=== PATIENT | male | born 1975 | race Caucasian/White ===

== ENCOUNTER 2020-08-13 09:23 | Outpatient (REF) | payer BC, SELFPAY ==
[2020-08-13 10:14] LABS: MANUAL DIFF FLAG NO
[2020-08-13 10:25] LABS: Basophils Absolute Auto 0.1 X10*3/uL (0.0-0.2); Basophils Percent Auto 0.7 % (0-2); Eosinophils Absolute Auto 0.4 X10*3/uL (0.0-0.4); Eosinophils Percent Auto 4.9 % (0-4); Hematocrit 48.7 % (42-52); Hemoglobin 17.1 g/dl (14.0-18.0); Imm Gran Abs Auto 0.02 X10*3/uL (0.00-0.03); Imm Gran Pct Auto 0.3 % (0.0-0.4); Lymphocytes Percent Auto 27.9 % (20-40); Mean Corpuscular HGB Conc 35.1 g/dl (31.0-36.0); Mean Corpuscular Hemoglobin 30.7 pg (27.0-33.0); Mean Corpuscular Volume 87.4 fL (80-98); Mean Platelet Volume 9.1 fL (9.4-12.4); Monocytes Absolute Auto 0.7 X10*3/uL (0.1-1.2); Monocytes Percent Auto 9.1 % (2-11); Neutrophils Absolute Auto 4.1 X10*3/uL (2.0-8.3); Neutrophils Percent Auto 57.1 % (45-73); Platelet Count 250 X10*3/uL (160-400); Red Blood Count 5.57 X10*6/uL (4.60-5.80); Red Cell Distribution Width 12.3 % (11.0-16.0); White Blood Count 7.2 X10*3/uL (4.8-10.8)
[2020-08-13 10:41] LABS: Alanine Aminotransferase 94 U/L (0-40); Albumin Level 4.3 g/dL (3.5-5.0); Alkaline Phosphatase 73 U/L (39-117); Anion Gap 13 (12-20); Aspartate Amino Transferase 56 U/L (5-37); Bilirubin Total 1.4 mg/dL (0.0-1.0); Blood Urea Nitrogen 23 mg/dL (9-16); Calcium 9.2 mg/dL (8.4-10.2); Carbon Dioxide 27 mmol/L (22-29); Chloride 102 mmol/L (96-108); Cholesterol 159 mg/dL; Estimated Glomerular Filt Rate > 60; Glucose Random 95 mg/dL (60-115); HDL Cholesterol 31 mg/dL; LDL Cholesterol Calculated 68 mg/dl; Sodium 138 mmol/L (135-145); Total Protein 7.3 g/dL (6.5-8.0); Triglycerides 300 mg/dL
[2020-08-13 11:03] LABS: Prostate Specific Antigen 1.17 ng/mL (<0.05-4.0)
[2020-08-13 11:14] LABS: Erythrocyte Sedimentation Rate 2 MM/HR (0-15)
== END 2020-08-13 09:24 | disposition home or self-care (01) ==
LOC: HO.LAB 09:23
PROVIDERS: PCP Internal Medicine Medical Oncology; Visit Provider Internal Medicine Medical Oncology
DX: G89.29 Other chronic pain (principal); M54.42 Lumbago with sciatica, left side; R63.4 Abnormal weight loss; N40.0 Benign prostatic hyperplasia without lower urinary tract symptoms; R22.9 Localized swelling, mass and lump, unspecified
CPT/HCPCS: 36415; 80053; 80061; 84153; 85025; 85652

== ENCOUNTER 2020-08-30 09:20 | Outpatient (REF) | payer BC, SELFPAY ==
--- NOTE | 2020-08-30 09:27 | FL_ITS ---
EXAMINATION: XR GI SERIES CLINICAL INFORMATION: Weight loss, hematemesis and nausea COMPARISON: None TECHNIQUE: Routine upper GI air-contrast study was performed. FINDINGS: Following oral administration of thick barium and effervescent granules, there is normal propagation bolus from the oral cavity through the pharynx, esophagus into stomach without obstruction, narrowing, or stricture. On placing patient supine and prone lying, there is flocculation of barium, still some increased acidity. No gastric or duodenal ulceration seen. Prominent duodenal mucosal thickening is seen. There is mild gastroesophageal reflux without hiatal hernia. Otherwise the course, caliber and rest of the stomach and duodenum are normal. FLUOROSCOPY TIME: 3.2 minutes DOSE AREA PRODUCT: 51.776 uGy-m2 (microgray-meter squared) FL/FL upper GI series IMPRESSION: 1. Increased gastric barium flocculation and thickening of duodenal mucosa suggestive of gastric acidity. No gastric or duodenal ulceration seen. 2. Mild gastroesophageal reflux without hiatal hernia.
== END 2020-08-30 09:21 | disposition home or self-care (01) ==
LOC: HO.XRAY 09:20
PROVIDERS: Visit Provider Internal Medicine Medical Oncology
DX: G89.29 Other chronic pain (principal); M54.42 Lumbago with sciatica, left side; R63.4 Abnormal weight loss; K92.0 Hematemesis; R11.0 Nausea
CPT/HCPCS: 74240

== ENCOUNTER 2020-08-31 08:08 | Outpatient (REF) | payer BC, SELFPAY ==
--- NOTE | 2020-08-31 08:23 | XR_ITS ---
EXAMINATION: XR CHEST CLINICAL INFORMATION: Chronic pain, weight loss, lumbago with left-sided sciatica COMPARISON: None TECHNIQUE: 2 views of the chest were obtained. FINDINGS: No significant abnormality is noted involving the heart, lungs, mediastinum, bony thorax or soft tissues. XR/XR chest 2V IMPRESSION: Unremarkable chest exam
[2020-08-31 08:29] LABS: Basophils Percent Auto 0.7 % (0-2); Eosinophils Absolute Auto 0.3 X10*3/uL (0.0-0.4); Eosinophils Percent Auto 5.7 % (0-4); Hematocrit 47.9 % (42-52); Hemoglobin 16.7 g/dl (14.0-18.0); Imm Gran Abs Auto 0.01 X10*3/uL (0.00-0.03); Imm Gran Pct Auto 0.2 % (0.0-0.4); Lymphocytes Absolute Auto 1.8 X10*3/uL (1.2-4.9); Lymphocytes Percent Auto 33.8 % (20-40); MANUAL DIFF FLAG NO; Mean Corpuscular HGB Conc 34.9 g/dl (31.0-36.0); Mean Corpuscular Hemoglobin 30.9 pg (27.0-33.0); Mean Corpuscular Volume 88.7 fL (80-98); Mean Platelet Volume 8.8 fL (9.4-12.4); Monocytes Absolute Auto 0.4 X10*3/uL (0.1-1.2); Monocytes Percent Auto 7.2 % (2-11); Neutrophils Absolute Auto 2.9 X10*3/uL (2.0-8.3); Neutrophils Percent Auto 52.4 % (45-73); Platelet Count 253 X10*3/uL (160-400); White Blood Count 5.4 X10*3/uL (4.8-10.8)
[2020-08-31 09:10] LABS: Alanine Aminotransferase 76 U/L (0-40); Alkaline Phosphatase 87 U/L (39-117); Anion Gap 12 (12-20); Aspartate Amino Transferase 45 U/L (5-37); Bilirubin Total 0.4 mg/dL (0.0-1.0); Blood Urea Nitrogen 17 mg/dL (9-16); Calcium 9.1 mg/dL (8.4-10.2); Carbon Dioxide 29 mmol/L (22-29); Chloride 101 mmol/L (96-108); Estimated Glomerular Filt Rate > 60; Glucose Random 170 mg/dL (60-115); Potassium 4.5 mmol/l (3.3-5.1); Sodium 137 mmol/L (135-145); Total Protein 7.1 g/dL (6.5-8.0)
== END 2020-08-31 08:09 | disposition home or self-care (01) ==
LOC: HO.LAB 08:08
PROVIDERS: PCP Internal Medicine Medical Oncology; Visit Provider Internal Medicine Medical Oncology
DX: G89.29 Other chronic pain (principal); M54.42 Lumbago with sciatica, left side; R63.4 Abnormal weight loss; K92.0 Hematemesis
CPT/HCPCS: 36415; 71046; 80053; 85025

== ENCOUNTER 2020-09-08 08:14 | Outpatient (REF) | payer BC, SELFPAY ==
--- NOTE | 2020-09-08 08:19 | XR_ITS ---
EXAMINATION: XR LUMBOSACRAL SPINE WITH OBLIQUES CLINICAL INFORMATION: Chronic pain, lumbago with left-sided sciatica. COMPARISON: Lumbar spine 04/15/2007 TECHNIQUE: AP, both oblique, and lateral views of the lumbar spine. Lateral view of the lumbosacral junction. FINDINGS: There is normal lumbar lordosis. The vertebral heights and disc heights are normal. There is a grade 1 retrolisthesis L4 or L5. Rest the vertebral alignment is normal. On oblique views there is no pars defect or listhesis. No lytic or sclerotic process seen. There is mild ventral spondylosis at L2-L3 disc level. The paravertebral soft tissues are normal. XR/XR lumbar spine 4V min IMPRESSION: Grade 1 retrolisthesis of L4 over L5. There is mild ventral spondylosis at L2-L3 disc level. No acute fracture, dislocation or lytic process seen.
== END 2020-09-08 08:15 | disposition home or self-care (01) ==
LOC: HO.XRAY 08:14
PROVIDERS: PCP Internal Medicine Medical Oncology; Visit Provider Internal Medicine Medical Oncology
DX: G89.29 Other chronic pain (principal); M54.42 Lumbago with sciatica, left side; R63.4 Abnormal weight loss; K92.0 Hematemesis
CPT/HCPCS: 72110

== ENCOUNTER 2020-09-29 09:27 | Outpatient (REF) | payer BC, SELFPAY ==
[2020-09-29 10:53] LABS: Alanine Aminotransferase 85 U/L (0-40); Albumin Level 4.4 g/dL (3.5-5.0); Alkaline Phosphatase 82 U/L (39-117); Anion Gap 12 (12-20); Aspartate Amino Transferase 58 U/L (5-37); Bilirubin Total 0.7 mg/dL (0.0-1.0); Blood Urea Nitrogen 19 mg/dL (9-16); Calcium 9.8 mg/dL (8.4-10.2); Carbon Dioxide 30 mmol/L (22-29); Chloride 101 mmol/L (96-108); Estimated Glomerular Filt Rate > 60; Gamma Glutamyl Transpeptidase 177 U/L (11-51); Glucose Fasting 95 mg/dL (60-99); Potassium 4.4 mmol/l (3.3-5.1); Sodium 139 mmol/L (135-145); Total Protein 7.3 g/dL (6.5-8.0)
[2020-09-29 11:16] LABS: Estimated Average Glucose 105 mg/dL; Hemoglobin A1c % 5.3 %
== END 2020-09-29 09:28 | disposition home or self-care (01) ==
LOC: HO.LAB 09:27
PROVIDERS: Visit Provider Internal Medicine Medical Oncology
DX: N40.0 Benign prostatic hyperplasia without lower urinary tract symptoms (principal); E66.3 Overweight
CPT/HCPCS: 36415; 80053; 82977; 83036

== ENCOUNTER 2020-10-20 14:07 | Outpatient (REF) | payer BC, SELFPAY ==
--- NOTE | ~2020-10-20 | MR_ITS ---
EXAMINATION: MR LUMBAR SPINE WITHOUT CONTRAST CLINICAL INFORMATION: Left-sided lower back pain. Left leg pain. Sacroiliac joint pain. COMPARISON: Lumbar spine radiographs dated 09/08/2020. TECHNIQUE: MRI of the lumbar spine was obtained using routine sequences without contrast. FINDINGS: VERTEBRAL BODIES AND PARASPINAL STRUCTURES: Normal vertebral body alignment. The lumbar lordosis is maintained. No acute fracture or subluxation. No loss of vertebral body height. Mild loss of intervertebral disc height with disc desiccation at L4-L5. Probable small vertebral body hemangioma within L1. No additional abnormal marrow signal. The visualized paraspinal soft tissues are unremarkable. CONUS MEDULLARIS AND CAUDA EQUINA: Normal, terminating at the level of L1. SPINAL LEVELS: T12-L1: No significant disc bulge. Bilateral facet arthropathy. No central canal or neural foraminal stenosis. L1-L2: No significant disc bulge. Lateral facet arthropathy. No central canal or neural foraminal stenosis. L2-L3: Mild broad-based disc bulge with a shallow left extraforaminal disc protrusion which abuts the exiting left L2 nerve root. Bilateral facet arthropathy with mild bilateral neural foraminal stenosis. L3-L4: Broad-based disc bulge with a shallow left extraforaminal disc protrusion which abuts the exiting left L3 nerve root. Bilateral facet arthropathy with [id number] left and mild right neural foraminal stenosis. L4-L5: Broad-based disc bulge with a shallow right extraforaminal disc protrusion which abuts the exiting right L4 nerve root. Bilateral facet arthropathy and thickening of the ligamentum flavum with mild central canal as well as moderate bilateral neural foraminal stenosis. L5-S1: No significant disc bulge. Bilateral facet arthropathy and mild right-sided uncinate spurring with mild right neural foraminal stenosis. MR/MR lumbar spine wo con IMPRESSION: 1. L4-L5 broad-based disc bulge with a shallow right extraforaminal disc protrusion which abuts the exiting right L4 nerve root. Bilateral facet arthropathy and thickening of the ligamentum flavum with mild central canal as well as moderate bilateral neural foraminal stenosis. 2. L2-L3 broad-based disc bulge with a shallow left extraforaminal disc protrusion which abuts the exiting left L2 nerve root. Bilateral facet arthropathy with mild bilateral neural foraminal stenosis. 3. L3-L4 broad-based disc bulge and shallow left extraforaminal disc protrusion which abuts the exiting left L3 nerve root. Bilateral facet arthropathy with [id number] left and mild right neural foraminal stenosis. 4. L5-S1 bilateral facet arthropathy with mild right-sided uncinate spurring and mild right neural foraminal stenosis.
== END 2020-10-20 14:08 | disposition home or self-care (01) ==
LOC: HO.MRI 14:07
PROVIDERS: Visit Provider Internal Medicine Medical Oncology
DX: M54.42 Lumbago with sciatica, left side (principal); M53.3 Sacrococcygeal disorders, not elsewhere classified; G89.29 Other chronic pain
CPT/HCPCS: 72148

== ENCOUNTER 2021-08-08 15:34 | Outpatient (REF) | payer OTHER, SELFPAY ==
--- NOTE | ~2021-08-08 | XR_ITS ---
EXAMINATION: XR CHEST CLINICAL INFORMATION: Right anterior chest pain. Pain on inspiration. COMPARISON: None TECHNIQUE: 2 views of the chest were obtained. FINDINGS: No significant abnormality is noted involving the heart, lungs, mediastinum, bony thorax or soft tissues. There is no pneumothorax. There is no pleural effusion. XR/XR chest 2V IMPRESSION: Normal chest.
== END 2021-08-08 15:35 | disposition home or self-care (01) ==
LOC: HO.XRAY 15:34
PROVIDERS: Visit Provider Internal Medicine Medical Oncology
DX: R07.9 Chest pain, unspecified (principal)
CPT/HCPCS: 71046

== ENCOUNTER 2021-09-07 09:19 | Outpatient (REF) | payer OTHER, SELFPAY ==
[2021-09-07 12:50] LABS: Influenza A PCR NEGATIVE (Negative); Influenza B PCR NEGATIVE (Negative); Resp Syncy Virus RNA Qual PCR NEGATIVE (Negative); SARS COV2 PCR INHOUSE NEGATIVE (Negative)
== END 2021-09-07 09:20 | disposition home or self-care (01) ==
LOC: HO.LAB 09:19
PROVIDERS: Visit Provider Family Medicine
DX: Z20.822 Contact with and (suspected) exposure to COVID-19 (principal)
CPT/HCPCS: 0241U

== ENCOUNTER → 2021-10-03 13:56 | Outpatient (BNVA) | payer OTHER, SELFPAY | PROVIDERS: PCP Internal Medicine Medical Oncology; Visit Provider Internal Medicine ==

== ENCOUNTER 2021-11-09 06:02 | Outpatient (REF) | payer OTHER, SELFPAY ==
--- NOTE | ~2021-11-09 | FL_ITS ---
EXAMINATION: XR FLUOROSCOPY WITH IMAGES CLINICAL INFORMATION: M54.16 - Radiculopathy, lumbar region COMPARISON: Radiographs lumbar spine 09/08/2020 TECHNIQUE: Fluoroscopy performed by Dr. John Wang. Fluoroscopy time: 1.0 minutes DAP: 4.19 Gycm2 Images: 4 FINDINGS: There is transitional vertebrae at L5 with sacralization, partial on right. There are spinal needles overlying the outer left L3 and L4 neural foramen. There is contrast seen in the respective nerve sheaths. Some early transforaminal epidural extension is suggested. No visible vascular communication. FL/FL guidance in treatment room IMPRESSION: Fluoroscopy for pain management procedures.
== END 2021-11-09 06:03 | disposition home or self-care (01) ==
LOC: HO.RADIR 06:02
PROVIDERS: Visit Provider Internal Medicine
DX: M54.16 Radiculopathy, lumbar region (principal); M54.59 Other low back pain
CPT/HCPCS: 64483; 64484; J1100; Q9967

== ENCOUNTER 2022-04-18 09:07 | Outpatient (REF) | payer OTHER, SELFPAY ==
[2022-04-18 09:18] LABS: MANUAL DIFF FLAG NO
[2022-04-18 09:34] LABS: Basophils Absolute Auto 0.1 X10*3/uL (0.0-0.2); Eosinophils Absolute Auto 0.2 X10*3/uL (0.0-0.4); Eosinophils Percent Auto 4.1 % (0-4); Lymphocytes Absolute Auto 1.8 X10*3/uL (1.2-4.9); Lymphocytes Percent Auto 36.4 % (20-40); Mean Corpuscular HGB Conc 35.4 g/dl (31.0-36.0); Mean Corpuscular Hemoglobin 30.7 pg (27.0-33.0); Mean Corpuscular Volume 86.6 fL (80.0-98.0); Monocytes Absolute Auto 0.5 X10*3/uL (0.1-1.2); Monocytes Percent Auto 10.9 % (2-11); Neutrophils Absolute Auto 2.3 x10*3/uL (2.0-8.3); Neutrophils Percent Auto 47.6 % (45-73); Platelet Count 223 X10*3/uL (160-400); Red Blood Count 5.54 X10*6/uL (4.60-5.80); Red Cell Distribution Width 12.1 % (11.0-16.0); White Blood Count 4.9 X10*3/uL (4.8-10.8)
[2022-04-18 10:04] LABS: Alanine Aminotransferase 64 U/L (0-40); Albumin Level 4.2 g/dL (3.5-5.0); Alkaline Phosphatase 109 U/L (39-117); Anion Gap 15 (12-20); Aspartate Amino Transferase 53 U/L (5-37); Bilirubin Total 0.7 mg/dL (0.0-1.0); Blood Urea Nitrogen 20 mg/dL (9-16); Calcium 9.1 mg/dL (8.4-10.2); Carbon Dioxide 22 mmol/L (22-29); Chloride 105 mmol/L (96-108); Cholesterol 141 mg/dL; Estimated Glomerular Filt Rate > 60; Glucose Fasting 100 mg/dL (60-99); HDL Cholesterol 27 mg/dL; LDL Cholesterol Calculated 72 mg/dl; Potassium 4.2 mmol/L (3.3-5.1); Sodium 138 mmol/L (135-145); Total Protein 7.1 g/dL (6.5-8.0); Triglycerides 214 mg/dL
[2022-04-18 10:28] LABS: Free T4 (Free Thyroxine) 1.04 ng/dL (0.71-1.85); Thyroid Stimulating Hormone 3.56 uIU/mL (0.32-4.0)
[2022-04-23 01:27] LABS: Testosterone, Total 480 ng/dL (250-1100)
== END 2022-04-18 09:08 | disposition home or self-care (01) ==
LOC: HO.LAB 09:07
PROVIDERS: PCP Internal Medicine Medical Oncology; Visit Provider Internal Medicine Medical Oncology
DX: N40.0 Benign prostatic hyperplasia without lower urinary tract symptoms (principal); E66.3 Overweight
CPT/HCPCS: 36415; 80053; 80061; 84403; 84439; 84443; 85025

== ENCOUNTER 2022-07-14 11:21 | Emergency (ER) | payer OTHER, SELFPAY ==
[2022-07-14 11:38] VITALS: BP 148/101; PULSE 78; RESP 20; TEMP 36.2; O2SAT 98; BMI 29.9
--- NOTE | 2022-07-14 13:43 | ED.EYEPROB ---
HPI - Eye Problem General Chief complaint: Eye Problems Stated complaint: eye pain Time Seen by Provider: 07/14/22 13:08 Source: patient Mode of arrival: ambulatory Limitations: no limitations History of Present Illness HPI Narrative: 47-YEAR-OLD MALE PRESENTS TO ED TO BILATERAL RED EYES WITH WATERY DISCHARGE AND SLIGHT DISCOMFORT AFTER SLEEPING WITH HIS CONTACTS. PATIENT DENIES ANY BLUNT TRAUMA TO THE FACE /EYE OR ANY CHEMICAL GOING TO HIS EYE. PATIENT DENIES ANY LOSS OF VISION. Related Data Previous Rx's Medication Instructions Recorded naproxen 500 mg tablet 500 mg PO BID PRN pain 7 days #14 07/14/22 tabs ofloxacin 0.3 % eye drops (Ocuflox) 2 drp ophthalmic (eye) QID 7 days 07/14/22 #10 mL Allergies Allergy/AdvReac Type Severity Reaction Status Date / Time No Known Allergies Allergy Verified 07/05/22 13:14 Review of Systems Review of Systems: BILATERAL RED EYES WITH WATERY DISCHARGE IN MILD DISCOMFORT Yes all other systems are reviewed and are negative [facility] Past Medical History Medical History (Updated 07/14/22 @ 14:02 by LUIS Garland) Discogenic lumbar pain Lumbar radiculitis Vertebrogenic low back pain Social History Social History (System 07/05/22 @ 13:14 by Sharri Armendariz) Advance Directives: No Advance Directives Information Provided: No Physical Exam Vital Signs: Vital Signs: Last Vital Signs Temp 97.2 F 07/14/22 11:38 Pulse 78 07/14/22 11:38 Resp 20 07/14/22 11:38 BP 148/101 H 07/14/22 11:38 Pulse Ox 98 07/14/22 11:38 O2 Del Method 07/14/22 11:38 BMI result Body Mass Index 29.9 Const: General: cooperative, healthy appearing, comfortable, no acute distress, well developed, alert, awake and Physically active Orientation/consciousness: oriented to person, oriented to place, oriented to time and patient oriented x3 HEENT: Head: Yes normal to inspection, Yes No palpable skull fracture present, Yes normocephalic, Yes atraumatic and No abrasion Eyes: Other: BILATERAL BOTH EYES EVALUATED WITH TETRACAINE, FLUORESCEIN DYE, AND WOOD'S LAMP. BOTH EYES NEGATIVE FOR CORNEAL ABRASION, CORNEAL ULCER, OR FOREIGN BODY. bOTH EYES POSITIVE FOR CONJUNCTIVA ERYTHEMA AND WATERY DISCHARGE. BOTH EYES VISUAL ACUITY 20/20 Neck: Neck: Yes normal visual inspection, Yes full ROM, Yes no lymphadenopathy, Yes no meningeal signs, Yes trachea midline, Yes supple, No anterior neck swelling and No tender Chest: Chest palpation & inspection: normal inspection of the chest and normal palpation of entire chest wall Resp: Effort & Inspection: normal respiratory effort and able to speak in complete sentences Auscultation: clear to auscultation bilaterally Cardio: Jugular venous distension: no JVD Heart sounds: S1 normal heart sound present and S2 normal heart sound present GI: Inspection: Yes normal to inspection and No abdominal wall ecchymosis Palpation (GI): Soft to palpation, not firm, nontender, no guarding and not rigid : General: No CVA tenderness and Yes no CVA tenderness Back/Spine/Pelvis: Back: no CVA tenderness, No CVA tenderness and No back tenderness Skin: General skin exam: no rashes or lesions noted and elasticity normal Neuro: General: oriented to person, oriented to place, oriented to time, patient oriented x3, gait normal, tone normal, no meningeal signs and CN's II-XI intact bilaterally Cranial nerves: Yes CN's II-XII intact bilaterally Extrem: General: Yes normal to inspection and Yes full ROM Psych: Appearance: grossly normal, well kempt and not disheveled Course Course Course Narrative: I EVALUATED. Reevaluation(s) Reevaluation #1: HISTORY PHYSICAL EXAM DOES NOT INDICATE CORNEAL ABRASION, CORNEAL ULCER, OR GLAUCOMA. WILL BE DISCHARGED WITH ANTIBIOTIC FOR ICE Time: 13:59 Discharge Plan Discharge Clinical Impression: Acute bacterial conjunctivitis of both eyes Patient Disposition: Home, Self-Care Instructions: Conjunctivitis (ED) Additional Instructions: return to the ED immediately for worsening eye pain, loss of vision, change in vision, headache, dizziness, fever, chills, or any other concerning symptoms. Please follow-up with you're eye doctor. Prescriptions: New ofloxacin [Ocuflox] 0.3 % drops 2 drp ophthalmic (eye) QID 7 Days Qty: 10 0RF naproxen 500 mg tablet 500 mg PO BID PRN (Reason: pain) 7 Days Qty: 14 0RF Referrals: Ricardo Romo MD [Primary Care Provider] - (conjucitibitis) Interventions: ED Discharge Assessment Last Done: 07/14/22 15:08 Discharge Date/Time: 07/14/22 15:08 Print Language: Kiswahili
[2022-07-14] MEDS: Fluorescein Sodium STRIP 1 STRIP EYE-RIGHT (13:56)
[2022-07-14] MEDS: Tetracaine HCl/PF 0.5% Oph Sol 4 ML DROPS 1 DROP EYE-RIGHT (13:56)
[2022-07-14] MEDS: Fluorescein Sodium STRIP 1 STRIP EYE-LEFT (13:56)
== END 2022-07-14 15:08 | disposition home or self-care (01) ==
PROVIDERS: Emergency Provider Emergency Medicine; PCP Internal Medicine Medical Oncology
DX: H10.33 Unspecified acute conjunctivitis, bilateral (principal)
CPT/HCPCS: 99282; 99283

== ENCOUNTER 2023-05-04 10:34 | Outpatient (AMB) | payer OTHER, SELFPAY ==
[2023-05-04 10:49] VITALS: BP 120/86; PULSE 78; RESP 14; O2SAT 97; BMI 28.7
--- NOTE | 2023-05-04 10:49 | A.OFFVIS_ITS ---
Intake Vital Signs 05/04/23 10:49 Height 5 ft 10 in Weight 200 lb BMI 28.7 BP 120/86 Blood Pressure Location Rt brachial Position Sitting Respiration 14 Pulse 78 Pulse Source Pulse Oximeter Pulse Oximetry (%) 97 Oxygen Delivery Method Room Air Intake Visit Reasons: Increasing Low Back Pain Allergies No Known Allergies Allergy (Verified 05/04/23 10:53) Medication List - Last Reconciled 05/04/23 by La Shafer LPN naproxen 500 mg PO BID PRN 7 days ofloxacin 0.3% (Ocuflox) 2 drps ophthalmic (eye) QID 7 days HPI Increasing Low Back Pain HPI Details 47-year-old male is presenting today for an increasing low back pain. He reports significant improvement from the last procedure. He still reports some soreness in his back. He reports occasional right-sided leg pain. He reports muscle cramping and burning sensations in his left leg after an episode of weight liftting that later improved. He performs exercises like walking and running with his . He quit smoking. He has been performing stretching and core strengthening exercises at home. He reports leg muscle spasms after playing basketball. He has been drinking water and beet juice. Past procedures: 11/09/21: Transforaminal epidural steroid injection, Left L3 and L4: 80% relief ongoing. [facility] Medical History (Updated 07/15/22 @ 00:03 by Adrian Cohen) Discogenic lumbar pain Lumbar radiculitis Vertebrogenic low back pain Review of Systems Const All systems reviewed & are unremarkable except as noted in HPI and below Physical Exam Vital Signs: Last Vital Signs Pulse 78 05/04/23 10:49 Resp 14 05/04/23 10:49 BP 120/86 05/04/23 10:49 Pulse Ox 97 05/04/23 10:49 Oxygen Delivery Method Room Air 05/04/23 10:49 BMI result Body Mass Index 28.7 General: Appears afebrile. Alert and oriented. Mood and affect appropriate. Follows and participates in conversation appropriately. Respiratory effort is unlabored. Able to transition from sit to stand unassisted. Ambulates with bilaterally normal heel strike and toe off. Results Reviewed Results Reviewed: No imaging is available for review. Assessment & Plan Assessment & Plan (1) Discogenic lumbar pain: Code(s): M54.59 - Other low back pain (2) Lumbar radiculitis: Code(s): M54.16 - Radiculopathy, lumbar region Plan I encouraged him to continue with core strengthening exercises and stretching exercises at home. I is also recommended to use his inversion table for inversion exercises or swim at home for discogenic pain. Follow-up as needed. Scribed for Dr. Wang by Dilshad Rapp, medical review coordinator, on 05/04/2023. I, Dr. Wang, have personally reviewed and agree with the information entered by the scribe. Coding Level of Care Code Est Pt Level 3 (71504) Diagnoses Discogenic lumbar pain M54.59 Lumbar radiculitis M54.16
== END 2023-05-04 11:14 | disposition home or self-care (01) ==
PROVIDERS: PCP Internal Medicine Medical Oncology; Visit Provider Internal Medicine
DX: M54.59 Other low back pain (principal); M54.16 Radiculopathy, lumbar region
CPT/HCPCS: 99213

== ENCOUNTER → 2023-05-04 10:34 | Outpatient (BNVA) | payer OTHER, SELFPAY | PROVIDERS: PCP Internal Medicine Medical Oncology; Visit Provider Internal Medicine ==

== ENCOUNTER 2024-03-14 08:59 | Outpatient (REF) | payer OTHER, SELFPAY ==
--- NOTE | ~2024-03-14 | US_ITS ---
EXAMINATION: US ABDOMEN COMPLETE CLINICAL INFORMATION: Epigastric pain. COMPARISON: None available. TECHNIQUE: Real-time imaging of the abdominal viscera. Limited visualization due to bowel gas. FINDINGS: PANCREAS: Limited visualization of pancreatic tail and head. Imaged portion of pancreatic body is unremarkable. ABDOMINAL AORTA: Limited visualization. Imaged portion of [id number]-tq-spjewz abdominal aorta is not aneurysmal. INFERIOR VENA CAVA: Visualized portions are normal. LIVER: Increased hepatic parenchymal heterogeneity and echogenicity could be associated with hepatocellular disease/hepatic steatosis and substantially limits visualization. Correlation with liver function tests and clinical exam recommended to determine further management. GALLBLADDER: No gallstones. No gallbladder wall thickening. COMMON BILE DUCT: Normal in caliber measuring 0.4 cm in diameter. RIGHT KIDNEY: No hydronephrosis. No renal calculi. Limited visualization. The kidney measures 11.1 cm in maximum dimension. LEFT KIDNEY: No hydronephrosis. No renal calculi. Limited visualization. The kidney measures 11.8 cm in maximum dimension. SPLEEN: Normal. The spleen measures 11.8 cm in maximum dimension. FREE FLUID: None. US/US abdomen complete IMPRESSION: Increased hepatic parenchymal heterogeneity and echogenicity could be associated with hepatocellular disease/hepatic steatosis and substantially limits visualization. Correlation with liver function tests and clinical exam recommended to determine further management.
== END 2024-03-14 09:00 | disposition home or self-care (01) ==
LOC: HO.US 08:59
PROVIDERS: PCP Internal Medicine Medical Oncology; Visit Provider Internal Medicine
DX: R10.13 Epigastric pain (principal)
CPT/HCPCS: 76700

== ENCOUNTER 2024-06-27 09:45 | Day surgery (SDC) | payer OTHER, SELFPAY ==
[2024-06-25 14:48] VITALS: BMI 29.7
--- NOTE | 2024-06-26 09:32 | P.CONAN_ITS ---
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 If so, by whom?: No Are you DNR?: No Advance Directives: No Advance Directives Information Provided: Yes Recently lost weight without trying: No Meds Allergies Allergy/AdvReac Type Severity Reaction Status Date / Time No Known Allergies Allergy Verified 05/04/23 10:53 Exam Airway Mallampati Class: II TM Dist: >3cm Neck ROM: Full Heart: rrr Lungs: cta Assessment and Plan Assessment Anesthesia Assessment: Anesthesia Plan Discussed Final Anesthetic Review Family History of Problems with Anesthesia: No NPO: Yes ASA Class: I and III Final Preanesthetic Review: No Changes in Pt Med Stat, Meds/Allgs Chart Reviewed, Consent Obtained/Reviewed and Anes Risks/Benef Reviewed Patient Risk: Low Procedure Risk: Low Anesthetic Plan Anesthetic Plan: MAC: Disposition: Standard PACU
[2024-06-27] VITALS (7 sets, daily range): BP systolic 107–135; BP diastolic 68–100; PULSE 99–123; RESP 14–16; TEMP 36.1–36.8; O2SAT 93–99; BMI 29.8
--- OUTSIDE RECORDS SUMMARY | 2024-06-27 09:48 | XMS_ITS ---
Author Organization [facility] Address [address] [place] [id number] Care Team Providers Care Parts Finisher Name Role Phone Ricardo Romo MD Primary Care Provider Unavailab Ricardo Mccormick Unavailable [phone] REASON FOR VISIT New pt no show Encounters Encounter Location Date Provider Diagnosis [facility] [address] [place] [id number] 10/11/2023 Ricardo Flor PLAN OF TREATMENT Next Appt Details Provider Name:Ricardo Flor , 06/27/2024 11:10:00 AM, [address] [place] [address] , [place], [place], [phone],
--- OUTSIDE RECORDS SUMMARY | 2024-06-27 09:48 | XMS_ITS | Patient Health Record ---
Author Organization [facility] Address [address] [place] [address] Care Team Providers Care Brace End Mainspring Former Name Role Phone Ricardo Romo MD Primary Care Provider Unavailab Ricardo Mccormick [facility] [phone] ALLERGIES No Known Allergies RESULTS Component Value Reference Range Notes US abdomen complete Reviewed date:06/26/2024 07:33:35 PM Interpretation: Performing Lab: Notes/Report: [address] [address] Ultrasound Report Signed Patient: Qamar Andino MR#: [id number] : 1975 Acct:[id number] Age/Sex: 48 / M ADM Date: 03/14/24 Loc: HO.US Attending Dr: Ricardo Flor MD Ordering Physician: Ricardo Flor MD Date of Service: 03/14/24 Procedure(s): US abdomen complete Accession Number(s): [id number] cc: Ricardo Romo MD; Ricardo Flor MD EXAMINATION: US ABDOMEN COMPLETE CLINICAL INFORMATION: Epigastric pain. COMPARISON: None available. TECHNIQUE: Real-time imaging of the abdominal viscera. Limited visualization due to bowel gas. FINDINGS: PANCREAS: Limited visualization of pancreatic tail and head. Imaged portion of pancreatic body is unremarkable. ABDOMINAL AORTA: Limited visualization. Imaged portion of cva-nd-iynffo abdominal aorta is not aneurysmal. INFERIOR VENA CAVA: Visualized portions are normal. LIVER: Increased hepatic parenchymal heterogeneity and echogenicity could be associated with hepatocellular disease/hepatic steatosis and substantially limits visualization. Correlation with liver function tests and clinical exam recommended to determine further management. GALLBLADDER: No gallstones. No gallbladder wall thickening. COMMON BILE DUCT: Normal in caliber measuring 0.4 cm in diameter. RIGHT KIDNEY: No hydronephrosis. No renal calculi. Limited visualization. The kidney measures 11.1 cm in maximum dimension. LEFT KIDNEY: No hydronephrosis. No renal calculi. Limited visualization. The kidney measures 11.8 cm in maximum dimension. SPLEEN: Normal. The spleen measures 11.8 cm in maximum dimension. FREE FLUID: None. US/US abdomen complete IMPRESSION: Increased hepatic parenchymal heterogeneity and echogenicity could be associated with hepatocellular disease/hepatic steatosis and substantially limits visualization. Correlation with liver function tests and clinical exam recommended to determine further management. Dictated By: Sinai Dickey MD Signed By: <Electronically signed by Sinai Dickey MD in OV> 04/02/24 1404 DD/ 0948 TD/TT: Silk Hanger: REASON FOR REFERRAL No Information MEDICATIONS Medication SIG (Take, Route, Fr equency, Duration) Notes Start Date End Date Status Omeprazole 40 MG 1 Orally Once a day every morning for 30 day(s) 03/06/2024 Active SOCIAL HISTORY Tobacco Use: Social History Observation Description Date Details (start date - stop date) Former Smoker NA - NA Sex Assigned At : Social History Observation Description Sex Assigned At Unknown Tobacco Use/Smoking Question Answer Notes Patient is a former smoker How long has it been since you last smoked? 5-10 years Alcohol Screen Question Answer Notes Did you have a drink contain ing alcohol in the past year? Yes How often did you have a dri nk containing alcohol in the past year? 2 to 3 times a week (3 points) How many drinks did you have on a typical day when you were drinking in the past year? 3 or 4 drinks (1 point) Points 4 Interpretation Positive PROBLEMS Problem Type ICD Code Onset Dates Problem Status W/U Status Risk SNOMED Code Notes Problem Chronic GERD (K21.9) Active confirmed Gastroesophagea l reflux disease (963183567) Problem Colon cancer screening (Z12.11) Active confirmed Colon cancer screening (150789387) Problem Abdominal pain, epigastric (R10.13) Active confirmed Epigastric pain (90927768) VITAL SIGNS Blood pressure diastolic 00 mm Hg 03/06/2024 Height 5 ft 10 in in 03/06/2024 Blood pressure systolic 00 mm Hg 03/06/2024 Weight 207 lbs 03/06/2024 BMI 29.70 kg/m2 03/06/2024 Encounters Encounter Location Date Provider Diagnosis [facility] [address] [place] [phone] 06/27/2024 Ricardo Flor [facility] [address] [place] [phone] 10/11/2023 Ricardo Flor [facility] [address] [address] 03/06/2024 Ricardo Chacho Chronic GERD K21.9 ; Colon cancer screening Z12.11 and Abdominal pain, epigastric R10.13 [facility] [address] [place] [phone] 10/11/2023 Ricardo Flor ASSESSMENTS Encounter Date Diagnosis Assessment Notes Treatment Notes Treatment Clinical Notes 03/06/2024 Colon cancer screening (ICD-10 - Z12.11) 03/06/2024 Chronic GERD (ICD-10 - K21.9) 03/06/2024 Abdominal pain, epigastric (ICD-10 - R10.13) PLAN OF TREATMENT Pending Test Test Name Order Date US abdomen complete 03/06/2024 Future Test Test Name Order Date UPPER GI ENDOSCOPY 03/06/2024 COLONOSCOPY 03/06/2024 Next Appt Details Provider Name:Ricardo Flor , 06/27/2024 11:10:00 AM, [address] [facility] , [place], [place], [phone], Insurance Providers Payer Name Payer Address Payer Phone Subscriber Number Group Number Insured Name Patient Relationship to Insured Coverage Start Date Coverage End Date [facility] [address] [place] [address] [id number] QAMAR ANDINO Self - patient is the insured MEDICAL (GENERAL) HISTORY Medical History History ICD Code Denies AK,DM,CVA,Lung disease,renal dise ase GERD Surgical History Surgery Date(Month/Year)
--- OUTSIDE RECORDS SUMMARY | 2024-06-27 09:48 | XMS_ITS ---
Author Organization [facility] Address [address] [place] [address] Care Team Providers Care Metal Trimmer Name Role Phone Ricardo Romo MD Primary Care Provider Ricardo Mccauley Unavailable [phone] ALLERGIES No Known Allergies MEDICATIONS Medication SIG (Take, Route, Fr equency, [...] (K21.9) Active confirmed Gastroesophagea l reflux disease (210045944) Problem Colon cancer screening (Z12.11) Active confirmed Colon cancer screening (871521994) Problem Abdominal pain, epigastric (R10.13) Active confirmed Epigastric pain (04295431) VITAL SIGNS BMI 29.70 kg/m2 03/06/2024 Blood pressure systolic 00 mm Hg 03/06/20 24 Blood pressure diastolic 00 mm Hg 024 Height 5 ft 10 in in 03/06/2024 Weight 207 lbs 03/06/2024 Encounters Encounter Location Date Provider Diagnosis [facility] [address] [facility] [address] [place] [address] 03/06/2024 Ricardo Flor Chronic GERD K21.9 ; Colon cancer screening Z12.11 and Abdominal pain, epigastric R10.13 ASSESSMENTS Encounter Date Diagnosis Assessment Notes Treatment Notes Treatment Clinical Notes 03/06/2024 Chronic GERD (ICD-10 - K21.9) 03/06/2024 Colon cancer screening (ICD-10 - Z12.11) 03/06/2024 Abdominal pain, epigastric (ICD-10 - R10.13) PLAN OF TREATMENT Medication Medication Name Sig Start Date Stop Date Notes Omeprazole 40 MG 1 Orally Once a day every morning for 30 day(s) 03/06/2024 Pending Test Test Name Order Date US abdomen complete 03/06/2024 Future Test Test Name Order Date UPPER GI ENDOSCOPY 03/06/2024 COLONOSCOPY 03/06/2024 Next Appt Details Follow Up: prn, Reason: Provider Name:Ricardo Flor , 06/27/2024 11:10:00 AM, [address] [place] [address] , [place], [place], [phone], Progress Notes * Examination Category Sub-Category Detail Notes General Examination GENERAL APPEARANCE: pleasant , well nourished, well developed, in no acute distress HEAD: EYES: sclera non-icteric EARS: NOSE: THROAT: NECK/THYROID: no cervical lymphade nopathy, neck supple HEART: S1, S2 normal CHEST: LUNGS: clear to auscultatio n bilaterally ABDOMEN: normal bowel sounds, no guarding or rigidity, no guarding or rigidity, no masses palpable, soft, nontender, nondistended NEUROLOGIC: alert and oriented SKIN: nonjaundiced, no spi elsie angiomata EXTREMITIES: no edema PERIPHERAL PULSES: BACK: BREASTS: MUSCULOSKELETAL: MALE GENITOURINARY: LYMPH NODES: RECTAL EXAM: FEMALE GENITOURINARY: ORAL CAVITY: mucosa moist
--- OUTSIDE RECORDS SUMMARY | 2024-06-27 09:48 | XMS_ITS ---
Author Organization Ricardo Romo III, MD Address [address] [place] [address] Care Team Providers Care Car Dispatcher Name Role Phone Ricardo Romo Primary Care Provider [phone] REASON FOR VISIT Rx Request Medications Medication SIG (Take, Route, Fr equency, Duration) Notes Start Date End Date Status Naproxen 500 MG 1 tablet with food o r milk as needed Orally every 12 hrs for 30 days 04/12/2022 12/09/2024 Active Social History Sex Assigned At : Social History Observation Description Sex Assigned At Male Encounters Encounter Location Date Provider Diagnosis Ricardo Romo III, MD [address] [place] [address] [place] [address] 05/13/2024 Ricardo Romo Plan Of Treatment Medication Medication Name Sig Start Date Stop Date Notes Naproxen 500 MG 1 tablet with food o r milk as needed Orally every 12 hrs for 30 days 04/12/2022 12/09/2024 Next Appt Details Provider Name:Ricardo Romo, 07/04/2024 01:00:00 PM, [address] [place] [address] [place], [address], Progress Notes * Keyon ANDINOs IDOB: (48 yo M)Acc No.[id number]:05/13/2024 Patient:?Ryan MartínezaKeyon I :1975???Age:48 Y???Sex:Male Address:[address], [place], [address] * Refills? Refill Naproxen Tablet, 500 MG, Orally, 60 Tablet, 1 tablet with food or milk as needed, every 12 hrs, 30 days, Refills=6 * true * Date:? Generated for Agus nelson/Naila/Piasmitting on:?06/27/2024 09:47 AM EDT
--- OUTSIDE RECORDS SUMMARY | 2024-06-27 09:48 | XMS_ITS ---
Author Organization Ricardo Romo III, MD Address [address] [facility] [place] [address] Care Team Providers Care Traditional Chinese Herbalist Name Role Phone Ricardo Romo Primary Care Provider Allergies Allergen (clinical drug ingredient) Drug/Non Drug Allergy documented on EMR Reaction Allergy Type Onset Date Status No Known Drug Allergy Unknown Drug Allergy Active REASON FOR VISIT Acute exacerbation of chronic low back pain Medications Medication SIG (Take, Route, Fr equency, Duration) Notes Start Date End Date Status Naproxen 500 MG 1 tablet with food o r milk as needed Orally every 12 hrs 04/12/2022 Active Social History Tobacco Use: Social History Observation Description Date Details (start date - stop date) Former Smoker NA - NA Sex Assigned At : Social History Observation Description Sex Assigned At Male Tobacco Use/Smoking Question Answer Notes Patient is a former smoker How long has it been since y ou last smoked? 1-5 years Additional Findings: Tobacco User Light cigarett e smoker ((1-9 cigs/day) Additional Findings: Tobacco Non-User Ex-cigaret te smoker Vital Signs Height 69.5 in 04/30/2024 Weight 205 lbs 04/30/2024 BMI 29.84 kg/m2 04/30/2024 Encounters Encounter Location Date Provider Diagnosis Ricardo Romo III, MD [address] [place] [address] [place] [address] 04/30/2024 Ricardo Romo Lumbar radiculopathy M54.16 ; Former smoker Z87.891 ; Overweight E66.3 ; ADHD (attention deficit hyperactivity disorder) F90.9 and History of depression Z86.59 Assessments Encounter Date Diagnosis (ICD Code) Assessment Notes Treat ment Notes Treatment Clinical Notes 04/30/2024 Lumbar radiculopathy (ICD-10 - M54.16) He continues to be under the management of pain management. He is able to conduct all of the activities of daily living. His pain has flared recently and appropriate treatment was instituted. He was referred back to pain management. 04/30/2024 Former smoker (ICD-10 - Z87.891) He is motivated not to smoke. We formulated a plan to prevent relapse in times of stress and illness. 04/30/2024 Overweight (ICD-10 - E66.3) He has gained 3 pounds. We reviewed his weight loss strategy. We reviewed his diet and nutrition. We made a plan to lose weight at a rate of one half of a pound per week until the body mass index is within normal limits. 04/30/2024 ADHD (attention deficit hyperactivity disorder) (ICD-10 - F90.9) He continues on current medication. This problem has been stable in address. 04/30/2024 History of depression (ICD-10 - Z86.59) The depression is currently in remission and he will remain on his current medication. Plan Of Treatment Medication Medication Name Sig Start Date Stop Date Notes Naproxen 500 MG 1 tablet with food o r milk as needed Orally every 12 hrs 04/12/2022 Next Appt Details Follow Up: As Scheduled, Chantal son: OV Provider Name:Ricardo Romo, 07/04/2024 01:00:00 PM, [address] [place] [address] [place], [address], Progress Notes * Rosalio ANDINO IDOB: (48 yo M)Acc No.[id number]:04/30/2024 Patient:?Keyon Andino teo Peterson Provider:?Ricardo Romo MD :1975???Age:48 Y???Sex:Male Yobany e:04/30/2024 Address:[address] [place] [address] [phone] Subjective: * Chief Complaints: * ???Acute exacerbation of chr onic low back pain * HPI: ???v:? This telehealth visit took place over 15 minutes with the patient at home and me in my office. He gave consent for billing.He has had a recurrence of his low back pain. He is experiencing it in the middle of his lumbar spine with out radiation. It is 5 out of 10. He has taken ibuprofen and acetaminophen with good results. He did not ask for cyclobenzaprine. Follow-up was arranged. ???:?Telehealth?Location of provider rendering services:?{...} [address] [facility] [address] ?Location of patient:?address listed in demographics for today's visit ?Patient identification confirmed using:?Name, ?Telehealth method:?Telephone only. Patient not visible to care provider. ?Consent:?Patient verbally consented to treatment, Patient verbally consented to billing insurance company, Patient informed of any privacy concerns related to method of visit ?Total time spent with patient (mins)?15 * ROS:?He denies any headache or diplopia stiff neck or lesions vision loss dyspnea skin lesions chest pain palpitations syncope nausea vomiting diarrhea leg weakness or peripheral edema. * Medical History:? * Surgical History:?Tooth impl ants 2021 * Hospitalization/Major Diagno stic Procedure:?Denies Past Hospitalization * Family History:?Father: jay jay johnson, No information.?Mother: , aids,diabetes. Osteoarthritis, diagnosed with DM.?Maternal aunt: , pancreatic cancer.?2 son(s) , 1 daughter(s) - healthy. .? His children are healthy and well. Maternal Great grandmother of cancer. * Social History:?Tobacco Use:?Tobacco Use/Smoking?Patient is a?former smoker ?How long has it been since you last smoked??1-5 years ?Additional Findings: Tobacco User?Light cigarette smoker ((1-9 cigs/day) ?Additional Findings: Tobacco Non-User?Ex-cigarette smoker ???He was born in [place]. He is working at a [employer]. He has been for 24 years to Ana and they have 3 healthy children. He is a former smoker. * Medications:?TakingNaproxen 500 MG Tablet 1 tablet with food or milk as needed Orally every 12 hrsMedication List reviewed and reconciled with the patientTaking Naproxen 500 MG Tablet 1 tablet with food or milk as needed Orally every 12 hrsMedication List reviewed and reconciled with the patient * Allergies:?No Known Drug All ergyno[Allergies Verified] Objective: * Vitals:?Ht: 69.5, Wt: 205, B PA:29.84, Wt-k.99. Assessment: * Assessment: 1.?Lumbar radiculopathy - M5 4.16 (Primary), He continues to be under the management of pain management. He is able to conduct all of the activities of daily living. His pain has flared recently and appropriate treatment was instituted. He was referred back to pain management.?2.?Former smoker - Z87.891, He is motivated not to smoke. We formulated a plan to prevent relapse in times of stress and illness.?3.?Overweight - E66.3, He has gained 3 pounds. We reviewed his weight loss strategy. We reviewed his diet and nutrition. We made a plan to lose weight at a rate of one half of a pound per week until the body mass index is within normal limits.?4.?ADHD (attention deficit hyperactivity disorder) - F90.9, He continues on current medication. This problem has been stable in address.?5.?History of depression - Z86.59, The depression is currently in remission and he will remain on his current medication.? Plan: * Treatment: * Procedure Codes:?16678 PHONE E/M BY PHYS 11-20 MIN * Preventive Medicine:? ??Counseling:?Care goal follow-up plan:?Counseling for abnormal BMI given?Yes ?Above Normal BMI Follow-up?Dietary management education, guidance, and counseling, Dietary needs education, Exercise promotion: strength training, Exercise promotion: stretching, Feeding regime, Giving encouragement to exercise, Lifestyle education regarding diet, Nutrition / feeding management, Nutrition therapy, Prescribed activity/exercise education, Prescribed diet education, Prescribed dietary intake, Special diet education, Weight monitoring , Intervention, Order not done: Medical or Other reason not done ?Smoking/Tobacco Use?Patient counseled on the dangers of tobacco use and urged to quit.?05/02/2024 * Follow Up:?As Scheduled (Chantal son: OV) * Images: * Sign off status: Completed true * Provider:?Ricardo Romo MD Date:?04/11 Generated for Agus nelson/Naila/eTransmitting on:?06/27/2024 09:47 AM EDT History and Physical Notes * HPI (History of Present Illness) Category Sub-Category Detail Notes Telehealth Location of [facility] with [facility]:: {...} [address] [place] [id number] Location of patient:: address listed in demographics for today's visit Patient identification confirmed using:: Name, Telehealth method:: Telephone only. Mercedes ent not visible to care provider. Consent:: Patient verbally c onsented to treatment, Patient verbally consented to billing insurance company, Patient informed of any privacy concerns related to method of visit Total time spent with patient (mins): 15
--- OUTSIDE RECORDS SUMMARY | 2024-06-27 09:48 | XMS_ITS | Patient Health Record ---
Author Organization Ricardo Romo III, MD Address [address] [place] [address] Care Team Providers Care Business Services Assistant Name Role Phone Ricardo Romo Primary Care Provider Allergies Allergen (clinical drug ingredient) Drug/Non Drug Allergy documented on EMR Reaction Allergy Type Onset Date Status No Known Drug Allergy Unknown Drug Allergy Active Results Component Value Reference Range Notes US abdomen complete (Not yet reviewed by provider) Interpretation: Performing Lab: Notes/Report: [address] [address] Ultrasound Report Signed Patient: Rosalio Hugo MR#: [id number] : 1975 Acct:[id number] Age/Sex: 48 / M ADM Date: 03/14/24 Loc: HO.US Attending Dr: Ricardo Flor MD Ordering Physician: Ricardo Flor MD Date of Service: 03/14/24 Procedure(s): US abdomen complete Accession Number(s): [id number] cc: Ricardo Romo MD; Ricardo Flor MD EXAMINATION: US ABDOMEN COMPLETE CLINICAL INFORMATION: Epigastric pain. COMPARISON: None available. TECHNIQUE: Real-time imaging of the abdominal viscera. Limited visualization due to bowel gas. FINDINGS: PANCREAS: Limited visualization of pancreatic tail and head. Imaged portion of pancreatic body is unremarkable. ABDOMINAL AORTA: Limited visualization. Imaged portion of arr-eg-yeilue abdominal aorta is not aneurysmal. INFERIOR VENA [...] in OV> 04/02/24 1404 DD/ 0948 TD/TT: Assurance Manager Insurance: [place] [id number] Ultrasound Report Signed Patient: Rosalio Lopez MR#: [id number] : 1975 Acct:[id number] Age/Sex: 48 / M ADM Date: 03/14/24 Loc: HO.US Attending Dr: Ricardo Flor MD Ordering Physician: Ricardo Flor MD Date of Service: 03/14/24 Procedure(s): US abd omen complete Accession Number(s): [id number] cc: Ricardo Romo MD; Ricardo Flor MD EXAMINATION: US ABDOMEN COMPLETE CLINICAL INFORMATION: Epigastric pain. COMPARISON: None available. TECHNIQUE: Real-time imaging of the abdominal viscera. Limited visualization due to bowel gas. FINDINGS: PANCREAS: Limited vi sualization of pancreatic tail and head. Imaged portion of pancreati c body is unremarkable. ABDOMINAL AORTA: Conroy ited visualization. Imaged portion of weo-ds-xbypel abdominal aorta is n ot aneurysmal. INFERIOR VENA CAVA: Visualized portions are normal. LIVER: Increased hep atic parenchymal heterogeneity and echogenicity could be associated with hepatocellular disease/hepatic steatosis and substantially limits visualization. Correlation with liver function tests and clinical e xam recommended to determine further management. GALLBLADDER: No gall stones. No gallbladder wall thickening. COMMON BILE DUCT: No rmal in caliber measuring 0.4 cm in diameter. RIGHT KIDNEY: No hydronephrosis. No renal calculi. Limited visualization. The k idney measures 11.1 cm in maximum dimension. LEFT KIDNEY: No hydr onephrosis. No renal calculi. Limited visualization. The k idney measures 11.8 cm in maximum dimension. SPLEEN: Normal. The spleen measures 11.8 cm in maximum dimension. FREE FLUID: None. U S/US abdomen complete IMPRESSION: Increased hepatic pa renchymal heterogeneity and echogenicity could be associated with hepa tocellular disease/hepatic steatosis and substantially limits visualization. Correlation with liver function tests and clinical e xam recommended to determine further management. Dictated By: Sinai Dickey MD Signed By: <Cheryl charles signed by Sinai Dickey MD in OV> 04/02/24 1404 DD/ 0948 TD/TT: Assurance Manager Insurance: Reason For Referral Reason Consult and Treat Raegan mp on neck left side Diagnosis 1 Lump in neck (R22.1) Referral Organization Ricardo Romo III, MD Referring Provider First Name Ricardo Referring Provider Last Name Clarissa Referring Provider Speciality Internal M edicine Referred Provider [facility] ([place]) Referred Provider Specialty Dermatology General Notes Mely Ramos 2023 10:21:19 AM EDT > Referral faxed with progress note Referral Priority Routine Medications Medication SIG (Take, Route, Fr equency, Duration) Notes Start Date End Date Status Naproxen 500 MG 1 tablet with food o r milk as needed Orally every 12 hrs for 30 days 04/12/2022 12/09/2024 Active Social History Tobacco Use: Social History [...] Additional Findings: Tobacco Non-User Ex-cigaret te smoker Alcohol Screen Question Answer Notes Did you have a drink containing alcohol in the p ast year? No Points 0 Interpretation Negative Problems Problem Type SNOMED Code ICD Code Onset Dates Problem Status W/U Status Risk Notes Problem 0808363 Former smoker (Z87.891) Active confirmed He is motivated not to smoke. We formulated a plan to prevent relapse in times of stress and illness. Problem 320069489 Overweight (E66.3) Active confirmed He has gained 3 pounds. We reviewed his weight loss strategy. We reviewed his diet and nutrition. We made a plan to lose weight at a rate of one half of a pound per week until the body mass index is within normal limits. Problem 523170099 Lumbar radiculopathy (M54.16) Active confirmed He continues to be under the management of pain management. He is able to conduct all of the activities of daily living. His pain has flared recently and appropriate treatment was instituted. He was referred back to pain management. Problem 085057073 Lumbago with sciatica, left side (M54.42) Active confirmed He will continue on current therapy without change. Problem Attention deficit hyperactivity disorder (452963763) ADHD (attention deficit hyperactivity disorder) (F90.9) Active confirmed He continues on current medication. This problem has been stable in address. Problem Hepatic cirrhosis () Hepatic cirrhosis (K74.60) Active confirmed There is no sign of jaundice. He is not consuming alcohol. Comprehensive blood work and liver function test was ordered prior to his next visit. Problem 234812074 History of depression (Z86.59) Active confirmed The depression is currently in remission and he will remain on his current medication. Problem Benign prostatic hypertrophy without outflow obstruction (149565311) Benign prostatic hyperplasia, unspecified whether lower urinary tract symptoms present (N40.0) Active confirmed He occasionally rises from sleep to urinate. We have reviewed lifestyle modifications he can make to reduce nocturia. Problem 02192528 Sleepwalking (F51.3) Active confirmed This has not been a problem for him in recent months. Problem 5815252138608295 Tailors bunion of left foot (M21.622) Active confirmed He has seen a video production engineer for this remains under the video production engineer care. Vital Signs Heart Rate 75 /min 04/02/2024 Temperature 97.2 degrees Fahrenheit 04/02/2024 Blood pressure diastolic 80 mm Hg 04/02/2024 Height 69.5 in 04/30/2024 Blood pressure systolic 121 mm Hg 04/02/2024 Weight 205 lbs 04/30/2024 BMI 29.84 kg/m2 04/30/2024 Encounters Encounter Location Date Provider Diagnosis Ricardo Romo III, MD [address] [place] [address] [place] [address] 08/21/2023 Ricardo Romo Acute abdominal pain R10.9 Ricardo Romo III, MD [address] [place] [address] [place] [address] 04/02/2024 Ricardo Romo Overweight E66.3 ; Hepatic cirrhosis K74.60 ; Benign prostatic hyperplasia, unspecified whether lower urinary tract symptoms present N40.0 ; History of depression Z86.59 ; ADHD (attention deficit hyperactivity disorder) F90.9 ; Former smoker Z87.891 and Lumbar radiculopathy M54.16 Ricardo Romo III, MD [address] [place] [address] [place] [address] 04/30/2024 Ricardo Romo Lumbar radiculopathy M54.16 ; Former smoker Z87.891 ; Overweight E66.3 ; ADHD (attention deficit hyperactivity disorder) F90.9 and History of depression Z86.59 Ricardo Romo III, MD [address] [place] [address] [place] [address] 04/30/2024 Ricardo Romo III, MD [address] [place] [address] [place] [address] 05/13/2024 Ricardo Romo III, MD [address] [place] [address] [place] [address] 06/03/2024 Ricardo Romo Assessments Encounter Date Diagnosis (ICD Code) Assessment Notes Treat ment Notes Treatment Clinical Notes 08/21/2023 Acute abdominal pain (ICD-10 - R10.9) He describes a mild discomfort with mild nausea and occasional loose stools recently. This may be due to food. He has consumed or viral infection. He is able to conduct all of the activities of daily life. He will be observed carefully. If he worsens, he will come immediately to the office. I have advised him to use omeprazole this time. 04/02/2024 Overweight (ICD-10 - E66.3) He has gained 3 pounds. We reviewed his weight loss strategy. We reviewed his diet and nutrition. We made a plan to lose weight at a rate of one half of a pound per week until the body mass index is within normal limits. 04/02/2024 Hepatic cirrhosis (ICD-10 - K74.60) There is no sign of jaundice. He is not consuming alcohol. Comprehensive blood work and liver function test was ordered prior to his next visit. 04/30/2024 Former smoker (ICD-10 - Z87.891) He is motivated not to smoke. We formulated a plan to prevent relapse in times of stress and illness. 04/30/2024 Lumbar radiculopathy (ICD-10 - M54.16) He continues to be under the management of pain management. He is able to conduct all of the activities of daily living. His pain has flared recently and appropriate treatment was instituted. He was referred back to pain management. 04/02/2024 Benign prostatic hyperplasia, unspecified whether lower urinary tract symptoms present (ICD-10 - N40.0) He occasionally rises from sleep to urinate. We have reviewed lifestyle modifications he can make to reduce nocturia. 04/30/2024 Overweight (ICD-10 - E66.3) He has gained 3 pounds. We reviewed his weight loss strategy. We reviewed his diet and nutrition. We made a plan to lose weight at a rate of one half of a pound per week until the body mass index is within normal limits. 04/02/2024 History of depression (ICD-10 - Z86.59) The depression is currently in remission and he will remain on his current medication. 04/30/2024 ADHD (attention deficit hyperactivity disorder) (ICD-10 - F90.9) He continues on current medication. This problem has been stable in address. 04/02/2024 ADHD (attention deficit hyperactivity disorder) (ICD-10 - F90.9) He continues on current medication. This problem has been stable in address. 04/30/2024 History of depression (ICD-10 - Z86.59) The depression is currently in remission and he will remain on his current medication. 04/02/2024 Former smoker (ICD-10 - Z87.891) He is motivated not to smoke. We formulated a plan to prevent relapse in times of stress and illness. 04/02/2024 Lumbar radiculopathy (ICD-10 - M54.16) He continues to be under the management of pain management. He is able to conduct all of the activities of daily living. His pain has flared recently and appropriate treatment was instituted. He was referred back to pain management. Plan Of Treatment Pending Test Test Name Order Date PROFILE, FASTING (COMPREHENSIVE METABOLI C) 04/11/2023 PROFILE, FASTING (COMPREHENSIVE METABOLI C) 10/11/2021 PROFILE, FASTING (COMPREHENSIVE METABOLI C) 06/07/2022 PROFILE, FASTING (COMPREHENSIVE METABOLI C) 07/15/2021 PROFILE, RANDOM (COMPREHENSIVE METABOLIC ) 04/02/2024 PROFILE, RANDOM (COMPREHENSIVE METABOLIC ) 07/28/2020 LIPID PANEL 04/11/2023 LIPID PANEL 10/11/2021 LIPID PANEL 07/15/2021 LIPID PANEL 07/28/2020 FREE T4 (FT4) 10/11/2021 TSH (THYROID STIMULATING HORMONE) 2021 PSA, TOTAL 07/15/2021 PSA, TOTAL 07/28/2020 PSA, TOTAL 04/11/2023 CBC w DIFF 10/11/2021 CBC w DIFF 07/15/2021 CBC w DIFF 07/28/2020 CBC w DIFF 04/11/2023 CBC w DIFF 06/07/2022 SED RATE (ESR) 07/28/2020 TESTOSTERONE, FREE AND TOTAL 04/11/2023 TESTOSTERONE, TOTAL 10/11/2021 CBC WITH AUTO DIFF 04/02/2024 Lipid Panel 06/07/2022 Testosterone, Total 04/02/2024 US abdomen complete 03/14/2024 Next Appt Details Provider Name:Ricardo Romo, 07/04/2024 01:00:00 PM, [address] [place] [address] [address], [place], [address], Insurance Providers Payer Name Payer Address Payer Phone Subscriber Number Group Number Insured Name Patient Relationship to Insured Coverage Start Date Coverage End Date [facility] [address] [place] [employer] [address] [facility] [place] [phone] [id number] Rosalio Hugo Self - patient is the insured 2 Medical (General) History Medical History History ICD Code Attention deficit disorder, unspecified hyperactivity presence F98.8 Sleep walking disorder F51.3 former smoker history of depression tailor's bunion left foot history of Raynaud's syndrome left wrist fracture low back pain radiated down the left sowmya e Surgical History Surgery Date(Month/Year) Tooth implants 2021
--- OUTSIDE RECORDS SUMMARY | 2024-06-27 09:48 | XMS_ITS ---
Author Organization Ricardo Romo III, MD Address [address] [place] [address] [place] [address] Care Team Providers Care Tandem Mill Operator Name Role Phone Ricardo Romo Primary Care Provider REASON FOR VISIT Possible Food Posioning Social History Sex Assigned At : Social History Observation Description Sex Assigned At Male Encounters Encounter Location Date Provider Diagnosis Ricardo Romo III, MD [address] [place] [address] [place] [address] 06/03/2024 Ricardo Romo Plan Of Treatment Next Appt Details Provider Name:Ricardo Romo, 07/04/2024 01:00:00 PM, [address] [place] [address] [place], [address], Progress Notes * ISAAC FISHERRosalio IDOB: (48 yo M)Acc No.[id number]:06/03/2024 Patient:?Keyon ANDINO I :1975???Age:48 Y???Sex:Male Address:[address] [place], [address] * true * Date:? Generated for Printi ng/Faledyg/eTransmitting on:?06/27/2024 09:47 AM EDT
--- OUTSIDE RECORDS SUMMARY | 2024-06-27 09:48 | XMS_ITS ---
Author Organization [facility] Address [address] [place] [address] Care Team Providers Care Protective Signal Operations Supervisor Name Role Phone Ricardo Romo MD Primary Care Provider Unavailab Ricardo Mccormick Unavailable [phone] REASON FOR VISIT epigastric pain,screening,gerd Encounters Encounter Location Date Provider Diagnosis [facility] Outpatient [address] [place] [phone] 06/27/2024 Ricardo Flor PLAN OF TREATMENT Next Appt Details Provider Name:Ricardo Flor , 06/27/2024 11:10:00 AM, [address] [place] [address] , [place], [place], [phone],
[2024-06-27] MEDS: Lactated Ringers 1,000 ML 100 ML IVCONT (10:07)
--- NOTE | 2024-06-27 13:22 | P.BOP_ITS ---
Brief Operative Note Date of Service: 06/27/24 Pre-op diagnosis: GERD, Screening Post-op diagnosis: other (Erosive esophagitis, Hiatal hernia, Internal hemorrhoids) Procedure: EGD with biopsies, Colonoscopy to the cecum and TI Surgeon: Ricardo Flor MD Anesthesia: MAC Was an Casting Wheel Operator Helper used for this Procedure?: No Estimated blood loss (mL): 2.0 Pathology: other (A. Gastric antrum B. Esophagus 30-35cm) Condition: stable Disposition: PACU
--- NOTE | 2024-06-27 14:21 | OP_ITS ---
DATE OF SERVICE: 06/27/2024 SURGEON: Ricardo Flor MD INDICATIONS: The patient presents for evaluation of abdominal discomfort, gastroesophageal reflux, and colorectal cancer screening. Full consent has been obtained from him for both procedures, including risks of bleeding and perforation. PREOPERATIVE DIAGNOSIS: POSTOPERATIVE DIAGNOSIS: PROCEDURE PERFORMED: Esophagogastroduodenoscopy with biopsies, and colonoscopy to the cecum and terminal ileum. ESTIMATED BLOOD LOSS: COMPLICATIONS: ANESTHESIA: Monitored anesthesia care. ASSISTANTS: SPECIMENS: PREOPERATIVE DIAGNOSES: Gastroesophageal reflux, abdominal discomfort, colorectal cancer screening. POSTOPERATIVE DIAGNOSES: Gastroesophageal reflux, abdominal discomfort, colorectal cancer screening, erosive esophagitis, rule out Daily esophagus, hiatal hernia, gastritis, duodenitis, internal hemorrhoids. DESCRIPTION OF PROCEDURE: The patient was placed in the left lateral decubitus position. The Olympus video gastroscope was passed in the posterior oropharynx and upper esophagus under direct vision. The scope was passed slowly into the distal esophagus. The gastroesophageal junction appeared at 35 cm. Extending from this to 30 cm was evidence of erosive esophagitis with multiple erosions, friability, edema, and some possible changes of Daily mucosa in the distal esophagus. There was no mass. The scope entered the stomach. There was a small hiatal hernia. The scope was advanced to the pylorus and the duodenum was cannulated to the descending portion. The duodenum including the bulb was carefully inspected and appeared normal other than some very minimal changes of duodenitis in the duodenal bulb. The scope was withdrawn back to the stomach. The gastric antrum had some areas of erythema and edema, but no erosions or ulceration. Biopsies were obtained. There was good peristalsis. The scope was retroflexed visualizing the proximal stomach carefully, which appeared normal, without any sign of mass or ulceration. The scope was straightened and withdrawn back to the esophagus. I obtained multiple biopsies between 30 and 35 cm. Proximal to 30 cm, the esophageal mucosa appeared normal. The scope was withdrawn from the patient. He was turned around for the colonoscopy. The digital rectal exam revealed no abnormalities. The Olympus video pediatric colonoscope was entered into the rectum and advanced easily to the cecum. Once in the cecum, I did identify normal-appearing cecal pouch with appendiceal orifice and a normal-appearing ileocecal valve. The terminal ileum was cannulated and appeared normal. Scope was withdrawn back in the colon. The entire cecum and ileocecal valve appeared normal. The scope was slowly withdrawn assessing all mucosal surfaces carefully. Preparation was excellent. I did not visualize any sign of polyps, colitis, nor angiodysplasia. In the rectum, scope was retroflexed visualizing internal hemorrhoids, but no other pathology. The rectal mucosa appeared normal. The scope was straightened and withdrawn from the patient. He tolerated the procedure well and was returned to the recovery area in stable condition. IMPRESSION: 1. Normal colonoscopy other than internal hemorrhoids. 2. Erosive esophagitis with associated hiatal hernia. Rule out Daily esophagus. 3. Gastritis. 4. Duodenitis. PLAN: Results of the biopsy will be checked. When I met him in February, I had started him on omeprazole 40 mg daily given his symptoms, but he did not refill the prescription after that. I have instructed him to get the omeprazole refilled and then use that daily on a long-term basis given today's findings. I will plan to see him in followup and will then schedule a followup endoscopy to assess for healing and be sure there is no underlying Daily esophagus. He was advised to stay off all aspirin and NSAIDs long-term. He was advised to avoid alcohol long-term as well. I would recommend a repeat colonoscopy in 10 years for further screening given the negative colonoscopy and no family history of colon cancer. This has been discussed with his . MD RADHA Valdivia/BRISEIDA / [phone]
== END 2024-06-27 14:28 | disposition home or self-care (01) ==
PROVIDERS: PCP Internal Medicine Medical Oncology; Visit Provider Internal Medicine
PROC: (CPT 43239; principal; 2024-06-27 11:10)
DX: K29.70 Gastritis, unspecified, without bleeding (principal); K20.80 Other esophagitis without bleeding; K44.9 Diaphragmatic hernia without obstruction or gangrene; K29.80 Duodenitis without bleeding; K21.9 Gastro-esophageal reflux disease without esophagitis; R10.13 Epigastric pain; Z12.11 Encounter for screening for malignant neoplasm of colon; K64.8 Other hemorrhoids
CPT/HCPCS: 43239; 45378; 88305; 88342; J1100; J1596; J2003; J2704

== ENCOUNTER 2024-07-29 07:41 | Outpatient (REF) | payer OTHER, SELFPAY ==
[2024-07-29 08:18] LABS: MANUAL DIFF FLAG NO
[2024-07-29 09:04] LABS: Basophils Absolute Auto 0.1 X10*3/uL (0.0-0.2); Basophils Percent Auto 1.1 % (0-2); Eosinophils Absolute Auto 0.3 X10*3/uL (0.0-0.4); Eosinophils Percent Auto 4.7 % (0-4); Hematocrit 51.6 % (42.0-52.0); Hemoglobin 17.8 g/dl (14.0-18.0); Imm Gran Abs Auto 0.01 X10*3/uL (0.00-0.03); Imm Gran Pct Auto 0.2 % (0.0-0.4); Lymphocytes Absolute Auto 1.6 X10*3/uL (1.2-4.9); Lymphocytes Percent Auto 29.9 % (20-40); Mean Corpuscular HGB Conc 34.5 g/dl (31.0-36.0); Mean Corpuscular Hemoglobin 30.1 pg (27.0-33.0); Mean Corpuscular Volume 87.2 fL (80.0-98.0); Monocytes Absolute Auto 0.5 X10*3/uL (0.1-1.2); Monocytes Percent Auto 10.2 % (2-11); Neutrophils Absolute Auto 2.9 x10*3/uL (2.0-8.3); Neutrophils Percent Auto 53.9 % (45-73); Platelet Count 236 X10*3/uL (160-400); Red Blood Count 5.92 X10*6/uL (4.60-5.80); Red Cell Distribution Width 12.1 % (11.0-16.0); White Blood Count 5.3 X10*3/uL (4.8-10.8)
[2024-07-29 09:16] LABS: Alanine Aminotransferase 75 U/L (0-40); Albumin Level 4.2 g/dL (3.5-5.0); Alkaline Phosphatase 99 U/L (39-117); Anion Gap 12 (12-20); Aspartate Amino Transferase 41 U/L (5-37); Bilirubin Total 0.5 mg/dL (0.0-1.0); Blood Urea Nitrogen 16 mg/dL (9-16); Calcium 10.2 mg/dL (8.4-10.2); Carbon Dioxide 29 mmol/L (22-29); Chloride 102 mmol/L (96-108); Cholesterol 189 mg/dL (<200); Estimated Glomerular Filt Rate > 60; Glucose Fasting 98 mg/dL (60-99); HDL Cholesterol 29 mg/dL (>40); Potassium 4.7 mmol/L (3.3-5.1); Sodium 138 mmol/L (135-145); Total Protein 7.4 g/dL (6.5-8.0); Triglycerides 646 mg/dL (<150)
[2024-07-29 09:38] LABS: Free T4 (Free Thyroxine) 0.86 ng/dL (0.71-1.85); Thyroid Stimulating Hormone 3.02 uIU/mL (0.32-4.0)
[2024-07-29 09:53] LABS: Prostate Specific Antigen 1.51 ng/mL (<0.05-4.0)
[2024-07-31 12:49] LABS: Alpha Fetoprotein 3.5 ng/mL (<6.1)
[2024-08-03 00:58] LABS: Testosterone, Total 425 ng/dL (250-1100)
== END 2024-07-29 07:42 | disposition home or self-care (01) ==
LOC: HO.LAB 07:41
PROVIDERS: PCP Internal Medicine Medical Oncology; Visit Provider Internal Medicine Medical Oncology
DX: E66.3 Overweight (principal); K74.60 Unspecified cirrhosis of liver; N40.0 Benign prostatic hyperplasia without lower urinary tract symptoms; E03.9 Hypothyroidism, unspecified; Z12.5 Encounter for screening for malignant neoplasm of prostate
CPT/HCPCS: 36415; 80053; 80061; 82105; 84153; 84403; 84439; 84443; 85025

== ENCOUNTER 2025-01-26 11:39 | Day surgery (SDC) | payer OTHER, SELFPAY ==
--- OUTSIDE RECORDS SUMMARY | 2025-01-13 14:30 | XMS_ITS | Patient Health Record ---
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 Name Role Phone Ricardo Romo Primary Care Provider Allergies Allergen (clinical drug ingredient) Drug/Non Drug Allergy documented on EMR Reaction Allergy Type Onset Date Status No Known Drug Allergy Unknown Drug Allergy Active Results Component Value Reference Range Notes URINE DIP STICK Reviewed date:07/04/2024 04:44:14 PM Interpretation: Performing Lab: Notes/Report: SG 1.025 1.005 - 1.025 pH 6.0 5.0 - 9.0 NORI Negative Negative - NIT Negative Negative - PRO 15 Negative - Trace GLU Negative Negative - KET 5 Negative - UBG 0.2 0.1 - 1.8 WISAM Negative 0.2 - 1.3 BLD Negative Negative - US abdomen complete Reviewed date:07/06/2024 06:38:49 AM Interpretation: Performing Lab: Notes/Report: [address] [address] Ultrasound Report Signed Patient: Rosalio Hugo MR#: [id number] : 1975 Acct:[id number] Age/Sex: 48 / M ADM Date: 03/14/24 Loc: HO.US Attending Dr: Ricardo Flor MD Ordering Physician: Ricardo Flor MD Date of Service: 03/14/24 Procedure(s): US abdomen complete Accession Number(s): [id number] cc: Ricardo Romo MD; Ricardo Flor MD EXAMINATION: US ABDOMEN COMPLETE CLINICAL INFORMATION: Epigastric pain. COMPARISON: None available. TECHNIQUE: Real-time imaging of the abdominal viscera. Limited visualization due to bowel gas. FINDINGS: PANCREAS: Limited visualization of pancreatic tail and head. Imaged portion of pancreatic body is unremarkable. ABDOMINAL AORTA: Limited visualization. Imaged portion of [id number]-cj-[id number] abdominal aorta is not aneurysmal. INFERIOR VENA [...] in OV> 04/02/24 1404 DD/ 0948 TD/TT: Electronic Warfare Technician: [place] [address] Ultrasound Report Signed Patient: Rosalio Hugo MR#: [id number] : 1975 Acct:[id number] Age/Sex: 48 / M ADM Date: 03/14/24 Loc: HO.US Attending Dr: Ricardo Flor MD Ordering Physician: Ricardo Flor MD Date of Service: 03/14/24 Procedure(s): US abdomen complete Accession Number(s): [id number] cc: Ricardo Romo MD; Ricardo Flor MD EXAMINATION: US ABDOMEN COMPLETE CLINICAL INFORMATION: Epigastric pain. COMPARISON: None available. TECHNIQUE: Real-time imaging of the abdominal viscera. Limited visualization due to bowel gas. FINDINGS: PANCREAS: Limited visualization of pancreatic tail and head. Imaged portion of pancreati c body is unremarkable. ABDOMINAL AORTA: Limited visualization. Imaged portion of pcm-ve-kupidg abdominal aorta is n ot aneurysmal. INFERIOR [...] in OV> 04/02/24 1404 DD/ 0948 TD/TT: Electronic Warfare Technician: Pathology Reviewed date:07/06/2024 06:38:49 AM Interpretation: Performing Lab:[facility], [address] [place] [phone] Notes/Report: -- ---- Name: Rosalio Hugo Age/Sex: 48/M : 1975 Unit#: [id number] Attend Dr: Ricardo Flor MD Re06/27/24 Status : [facility] Location: [facility] Disch: -- ---- SPEC : [id number] RECD : 06/27/243 STATUS: PORTIA STEINBERG NUM: [id number] TIM: 06/27/[address] [facility] [address]: Ricardo Flor MD ENTERED: 06/27/24 50 SP TYPE: Surgical OTHR DR: Ricardo Romo MD ORDERED: HE Stain/6, Gross Micro L4/2, IHC, H. pylori Addendum Addendum 1 Entered: 07/02/24 Immunostain for H. pylori on A is negative. Control stains appropriately. Addendum Signed (signature on file) Kayli Sunil 07/02/241038 -- ---- Diagnosis A. Gastric antrum, biopsy: Gastric antral mucosa with focal ectatic and congested vessels, and minimal chronic inactive gastritis; negative for intestinal metaplasia and dysplasia. B. Esophagus, 35-30 cm, biopsy: Squamous mucosa with active erosive esophagitis, and columnar mucosa with mild inflammation, hyperplasia, and intestinal metaplasia consistent with Daily's esophagus; negative for dysplasia. Comment: (A): Immunostain for H. pylori pending; addendum to follow. Clinical History Pre-Op Dx: Eosinophilic esophagitis Post-Op Dx: Erosive esophagitis, hiatal hernia, hemorrhoids Microscopic Description Microscopic sections reviewed. Material Received A. Gastric antrum B. Esophagus 35-30 cm CONTINUED ON NEXT PAGE -- ---- Name: Rosalio Hugo Age/Sex: 48/M : 1975 Unit#: [id number] Attend Dr: Ricardo Flor MD Re06/27/24 Status : [facility] Location: [facility] Disch: -- ---- SPEC : [id number] REC STATUS: PORTIA STEINBERG NUM: [id number] TIM: 06/27/24-[address] [facility] [address]: Ricardo Flor MD ENTERED: 06/27/24-13 50 SP TYPE: Surgical OTHR DR: Ricardo Romo MD ORDERED: HE Stain/6, Gross Micro L4/2, IHC, H. pylori Gross Description Received in two parts. Part A: Received formalin labeled ?gastric antrum? are 3 high-pink irregular and rectangular tissue fragments ranging from 0.3-0.4 cm, submitted in toto in a cassette labeled A. Part B: Received in formalin labeled ?esophagus 35-30 cm? are 3 aguilar-pink irregular tissue fragments each measuring 0.3 cm, submitted in toto a cassette labeled B. CEDS Special studies ordered and performed: Immunostain for H. pylori on A1. Copies To: Ricardo Romo MD [address] [place] [address], [address] [place] [address] Ricardo Flor MD [facility] [address] [place], [place] [id number] -- ---- Signed (signature on file) Kayli [place] 06/30/24 1204 -- ---- END OF REPORT Complete Blood Count Auto Di ff Reviewed date:07/29/2024 09:39:23 AM Interpretation: Performing Lab:[facility], [address] [place] [phone] Notes/Report: White Blood Count 5.3 4.8-10.8 X10*3/uL Red Blood Count 5.92 4.60-5.80 X10*6/uL Hemoglobin 17.8 14.0-18.0 g/dl Hematocrit 51.6 42.0-52.0 % Mean Corpuscular Volume 87.2 80.0-98.0 fL Mean Corpuscular Hemoglobin 30.1 27.0-33.0 pg Mean Corpuscular HGB Conc 34.5 31.0-36.0 g/dl Red Cell Distribution Width 12.1 11.0-16.0 % Platelet Count 236 160-400 X10*3/uL Mean Platelet Volume 9.0 9.4-12.4 fL Neutrophils Percent Auto 53.9 45-73 % Imm Gran Pct Auto 0.2 0.0-0.4 % Lymphocytes Percent Auto 29.9 20-40 % Monocytes Percent Auto 10.2 2-11 % Eosinophils Percent Auto 4.7 0-4 % Basophils Percent Auto 1.1 0-2 % NRBC Pct Auto 0.0 0.0-0.2 /100WBC Neutrophils Absolute Auto 2.9 2.0-8.3 x10*3/u L Imm Gran Abs Auto 0.01 0.00-0.03 X10*3/uL Lymphocytes Absolute Auto 1.6 1.2-4.9 X10*3/u L Monocytes Absolute Auto 0.5 0.1-1.2 X10*3/uL Eosinophils Absolute Auto 0.3 0.0-0.4 X10*3/u L Basophils Absolute Auto 0.1 0.0-0.2 X10*3/uL NRBC Abs Auto 0.000 0.0-0.012 X10*3/uL Comprehensive [place]. Panel Fa st Reviewed date:07/29/2024 09:39:23 AM Interpretation: Performing Lab:[facility], [address] [place] [phone] Notes/Report: Sodium 138 135-145 mmol/L Potassium 4.7 3.3-5.1 mmol/L Chloride 102 96-108 mmol/L Carbon Dioxide 29 22-29 mmol/L Anion Gap 12 12-20 Blood Urea Nitrogen 16 9-16 mg/dL Creatinine 1.19 0.5-1.4 mg/dL Estimated Glomerular Filt Rate > 60 Chronic Kidney Disease: Estimated GFR < 60 mL/min/1.73m2 Severe Kidney Disease: Estimated GFR < 15 mL/min/1.73m2 Glucose Fasting 98 60-99 mg/dL Calcium 10.2 8.4-10.2 mg/dL Bilirubin Total 0.5 0.0-1.0 mg/dL Aspartate Amino Transferase 41 5-37 U/L Alanine Aminotransferase 75 0-40 U/L Total Protein 7.4 6.5-8.0 g/dL Albumin Level 4.2 3.5-5.0 g/dL Alkaline Phosphatase 99 39-117 U/L Lipid Panel Reviewed date:07/29/2024 09:39:23 AM Interpretation: Performing Lab:[address] [address] Notes/Report: Triglycerides 646 <150 mg/dL Desirable Triglyceride: less than 150 mg/dL Borderline High Triglyceride 150-199 mg/dL High Triglyceride: 200-499 mg/dL Very High Triglyceride: greater than or equal to 5OO mg/dL Cholesterol 189 <200 mg/dL Desirable Cholesterol: less than 200 mg/dL Borderline High Cholesterol: 200-239 mg/dL High Cholesterol: greater than 239 mg/dL LDL Cholesterol Calculated TNP <100 mg/dL Unable to calculate the LDL. The formula of Friedwald, Pérez, and Lynda is only valid if the triglycerides are less than 400 mg/dl. HDL Cholesterol 29 >40 mg/dL Desirable HDL: greater than 40 mg/dL Note: This HDL assay may give artificially low results in patients with liver disease. Prostate Specific Antigen Reviewed date:07/30/2024 09:10:09 AM Interpretation: Performing Lab:[address] [address] Notes/Report: Prostate Specific Antigen 1.51 <0.05-4.0 ng/mL PSA methodology: M[employer]nell Alinity i Chemiluminescent Microparticle Immunoassay (CMIA) Free T4 (Free Thyroxine) Reviewed date:07/29/2024 09:39:23 AM Interpretation: Performing Lab:[address] [address] Notes/Report: Free T4 (Free Thyroxine) 0.86 0.71-1.85 ng/dL Thyroid Stimulating Hormone Reviewed date:07/29/2024 09:39:23 AM Interpretation: Performing Lab:[address] [address] Notes/Report: Thyroid Stimulating Hormone 3.02 0.32-4.0 uIU/mL Note: A sustained TSH level above 2.5 uIU/mL may warrant further investigation. TSH 3rd Generation ([employer]) Alpha Fetoprotein Reviewed date:08/05/2024 08:44:17 AM Interpretation: Performing Lab:[address] [address] Notes/Report: Alpha Fetoprotein 3.5 <6.1 ng/mL This test was performed using the Malik Bronson chemiluminescent method. Values obtained from different assay methods cannot be used interchangeably. AFP levels, regardless of value, should not be interpreted as absolute evidence of the presence or absence of disease. THIS TEST WAS PERFORMED AT: [facility] [address] [place] [phone] MIRELA LANG MD Testosterone, Total Reviewed date:08/05/2024 08:44:17 AM Interpretation: Performing Lab:[facility], [address], [place] [address] Notes/Report: Testosterone, Total 320 [address] ng/dL For additional information, please refer to http://education.[employer].Blurb/faq/ TotalTestosteroneLCMS [email or web address] (This link is being provided for informational/ educational purposes only.) This test was developed and its analytical performance characteristics have been determined by [facility] [place], [place]. It has not been cleared or approved by the U.S. Food and Drug Administration. This assay has been validated pursuant to the CLIA regulations and is used for clinical purposes. THIS TEST WAS PERFORMED AT: [employer] [address] JENA ESCUDERO MD,PHD Reason For Referral Reason Consult and Treat Lump on neck left side Diagnosis 1 Lump in neck (R22.1) Referral Organization Ricardo Romo III, MD Referring Provider First Name Ricardo Referring Provider Last Name Clarissa Referring Provider Speciality Internal edicine Referred Provider [facility] Referred Provider Specialty Dermatology General Notes Meyl Ramos 2023 10:21:19 AM EDT > Referral faxed with progress noteEliot Amber 08/28/2024 10:41:44 AM > patient is scheduled for 10/29/2024 @ 08:15 am with Elizabeth SMITH at the [place] location. Patient was notified and sent letter in the mail. Referral Priority Routine Referral Appointment Date 10/29/2024 Reason Consult and Treat Depression Questioning ADHD Diagnosis 1 History of depressio n (Z86.59) Referral Organization Ricardo Romo III, MD Referring Provider First Name Ricardo Referring Provider Last Name Clarissa Referring Provider Speciality Internal edicine Referred Provider [facility] adult mental, he alth Referred Provider Specialty Psychiatry General Notes Mely Mccabe 07/04/2024 01:47:23 PM > Patent was advised to contact [facility] and schedule an appointment or use their walk in clinic that is located in [place], [place]. Patient was given there contact number Referral Priority Routine Reason Consult and Treat Needs Sleep Study Diagnosis 1 Daytime somnolence ( R40.0) Diagnosis 2 Snoring (R06.83) Referral Organization Ricardo Romo III, MD Referring Provider First Name Ricardo Referring Provider Last Name Clarissa Referring Provider Speciality Internal M edicine Referred Provider [facility], Pulmonology Referred Provider Specialty Pulmonary Kenna garcia General Notes Eliot Mely 12/29/2024 03:31:26 PM > Referral and progress note faxed., Eliot Mely 01/01/2025 09:34:13 AM > Patient called [facility] Pulmonary he spoke with their office was told they are waiting for the specialist to review all documentations before the patient is scheduled., Mely Mccabe 01/01/2025 03:21:47 PM > Ana from Pulmonary calling to confirm they are scheduling the sleep study for the patient. Referral Priority Routine Social History Tobacco Use: Social History Observation Description Date Details (start date - stop date) Former Smoker NA - NA Sex Assigned At : Social History Observation Description Sex Assigned At Male Tobacco Control (Standard) Question Answer Notes Tobacco use: Former smoker How long has it been since you last smoked? 1-5 years Additional Findings: Tobacco non-user Ex-cigaret te smoker AUDIT-C (Standard) Question Answer Notes Did you have a drink containing alcohol in the p ast year? No Points 0 Interpretation Negative Problems Problem Type SNOMED Code ICD Code Onset Dates Problem Status W/U Status Risk Notes Problem 0186596 Former smoker (Z87.891) Active confirmed He is motivated not to smoke. We formulated a plan to prevent relapse in times of stress and illness. Problem 815820313 Lumbar radiculopathy (M54.16) Active confirmed He continues to be under the management of pain management. He is able to conduct all of the activities of daily living. His pain has flared recently and appropriate treatment was instituted. He was referred back to pain management. Problem 615558142 Lumbago with sciatica, left side (M54.42) Active confirmed He will continue on current therapy without change. Problem 491004738 Obesity (BMI 30-39.9) (E66.9) Active confirmed His weight remains in the obese range. We have discussed his diet and nutrition. We have made a plan to lose weight at a rate of one half of a pound per week through a diet restricted in fact calories and sodium and concentrated sweets. I recommended regular exercise. Problem Attention deficit hyperactivity disorder (928105354) ADHD (attention deficit hyperactivity disorder) (F90.9) Active confirmed He says his work and personal life or suffering. He was referred to mental health for evaluation diagnosis and treatment. He is still waiting for the appointment. I will doing to prescribe the medication if I can find records where the diagnosis was made. Problem 245560222 History of depression (Z86.59) Active confirmed He seems to be sad and depressed and withdrawn today. He says it is his ADHD coping for or and to be unproductive. He says he would be restored to normal with oral. I have referred him to the Center development or mental health treatment evaluation diagnosis and ultimately therapy if necessary. Problem Daytime somnolence (343914842250) Daytime somnolence (R40.0) Active confirmed He has several risk factors for having sleep apnea which her obesity and daytime somnolence and a history of severe snoring. A sleep study has been ordered. Problem Benign prostatic hypertrophy without outflow obstruction (233041581) Benign prostatic hyperplasia, unspecified whether lower urinary tract symptoms present (N40.0) Active confirmed He has been rising from sleep once a night and sometimes twice to urinate. We discussed lifestyle modifications that he could make to reduce nocturia. Problem 80451811 Sleepwalking (F51.3) Active confirmed This has not been a problem for him in recent months. Problem 8729917736384871 Tailors bunion of left foot (M21.622) Active confirmed He has seen a food and beverage analyst for this remains under the food and beverage analyst care. Vital Signs Heart Rate 80 /min 12/22/2024 Temperature 98.6 degrees Fahrenheit 12/22/2024 Blood pressure diastolic 80 mm Hg 12/22/2024 Height 69.5 in 12/22/2024 Blood pressure systolic 131 mm Hg 12/22/2024 Weight 213 lbs 12/22/2024 BMI 31 kg/m2 12/22/2024 Encounters Encounter Location Date Provider Diagnosis Ricardo Romo III, MD [address] [place] [address] [place] [address] 04/02/2024 Ricardo Romo Overweight E66.3 ; Hepatic cirrhosis K74.60 ; Benign prostatic hyperplasia, unspecified whether lower urinary tract symptoms present N40.0 ; History of depression Z86.59 ; ADHD (attention deficit hyperactivity disorder) F90.9 ; Former smoker Z87.891 and Lumbar radiculopathy M54.16 Ricardo Romo III, MD [address] [place] [address] [place] [address] 04/30/2024 Ricardo Romo Lumbar radiculopathy M54.16 ; Former smoker Z87.891 ; Overweight E66.3 ; ADHD (attention deficit hyperactivity disorder) F90.9 and History of depression Z86.59 Ricardo Romo III, MD [address] [place] [address] [place] [address] 07/04/2024 Ricardo Romo Benign prostatic hyperplasia, unspecified whether lower urinary tract symptoms present N40.0 ; History of depression Z86.59 ; Overweight E66.3 ; Hypothyroidism, unspecified E03.9 ; Tailors bunion of left foot M21.622 ; Lumbago with sciatica, left side M54.42 ; Former smoker Z87.891 and ADHD (attention deficit hyperactivity disorder) F90.9 Ricardo Romo III, MD [address] [place] [address] [place] [address] 07/29/2024 Ricardo Romo Benign prostatic hyperplasia, unspecified whether lower urinary tract symptoms present N40.0 ; Lumbar radiculopathy M54.16 ; History of depression Z86.59 ; Former smoker Z87.891 and ADHD (attention deficit hyperactivity disorder) F90.9 Ricardo Romo III, MD [address] [place] [address] [place] [address] 12/22/2024 Ricardo Romo Benign prostatic hyperplasia, unspecified whether lower urinary tract symptoms present N40.0 ; Daytime somnolence R40.0 ; Obesity (BMI 30-39.9) E66.9 ; History of depression Z86.59 ; Lumbago with sciatica, left side M54.42 and Former smoker Z87.891 Ricardo Romo III, MD [address] [place] [address] [place] [address] 04/30/2024 Ricardo Romo III, MD [address] [place] [address] [place] [address] 05/13/2024 Ricardo Romo III, MD [address] [place] [address] [place] [address] 06/03/2024 Ricardo Romo III, MD [address] [place] [address] [address] [place] [address] 07/11/2024 Ricardo Romo III, MD [address] [place] [address] [place] [address] 07/29/2024 Ricardo Romo III, MD [address] [place] [address] [place] [address] 11/03/2024 Ricardo Romo III, MD [address] [place] [address] [place] [address] 11/03/2024 Ricardo Romo Assessments Encounter Date Diagnosis (ICD Code) Assessment Notes Treat ment Notes Treatment Clinical Notes 04/02/2024 Overweight (ICD-10 - E66.3) He has [...] He was referred back to pain management. 07/04/2024 History of depression (ICD-10 - Z86.59) He seems to be sad and depressed and withdrawn today. He says it is his ADHD coping for or and to be unproductive. He says he would be restored to normal with oral. I have referred him to the Center development or mental health treatment evaluation diagnosis and ultimately therapy if necessary. 07/04/2024 Benign prostatic hyperplasia, unspecified whether lower urinary tract symptoms present (ICD-10 - N40.0) He has been rising from sleep once a night and sometimes twice to urinate. We discussed lifestyle modifications that he could make to reduce nocturia. 07/29/2024 Lumbar radiculopathy (ICD-10 - M54.16) He continues to be under the management of pain management. He is able to conduct all of the activities of daily living. His pain has flared recently and appropriate treatment was instituted. He was referred back to pain management. 07/29/2024 Benign prostatic hyperplasia, unspecified whether lower urinary tract symptoms present (ICD-10 - N40.0) He has been rising from sleep once a night and sometimes twice to urinate. We discussed lifestyle modifications that he could make to reduce nocturia. 12/22/2024 Daytime somnolence (ICD-10 - R40.0) He has several risk factors for having sleep apnea which her obesity and daytime somnolence and a history of severe snoring. A sleep study has been ordered. 12/22/2024 Benign prostatic hyperplasia, unspecified whether lower urinary tract symptoms present (ICD-10 - N40.0) 04/02/2024 Benign prostatic hyperplasia, unspecified whether lower [...] body mass index is within normal limits. 07/04/2024 Overweight (ICD-10 - E66.3) He has gained 6 pounds and a body mass index is now 30. We discussed his diet and nutrition at length. He will lose weight at a rate of one half of a pound per week through a diet restricted in calories. 07/29/2024 History of depression (ICD-10 - Z86.59) He seems to be sad and depressed and withdrawn today. He says it is his ADHD coping for or and to be unproductive. He says he would be restored to normal with oral. I have referred him to the Center development or mental health treatment evaluation diagnosis and ultimately therapy if necessary. 12/22/2024 Obesity (BMI 30-39.9) (ICD-10 - E66.9) His weight remains in the obese range. We have discussed his diet and nutrition. We have made a plan to lose weight at a rate of one half of a pound per week through a diet restricted in fact calories and sodium and concentrated sweets. I recommended regular exercise. 04/02/2024 History of depression (ICD-10 - Z86.59) The depression is currently in remission and he will remain on his current medication. 04/30/2024 ADHD (attention deficit hyperactivity disorder) (ICD-10 - F90.9) He continues on current medication. This problem has been stable in address. 07/04/2024 Hypothyroidism, unspecified (ICD-10 - E03.9) Comprehensive blood work with thyroid function tests were ordered to be done in the next couple of days. He appears to be euthyroid. 07/29/2024 Former smoker (ICD-10 - Z87.891) He is motivated not to smoke. We formulated a plan to prevent relapse in times of stress and illness. 12/22/2024 History of depression (ICD-10 - Z86.59) He seems to be sad and depressed and withdrawn today. He says it is his ADHD coping for or and to be unproductive. He says he would be restored to normal with oral. I have referred him to the Center development or mental health treatment evaluation diagnosis and ultimately therapy if necessary. 04/02/2024 ADHD (attention deficit hyperactivity disorder) (ICD-10 - F90.9) He continues on current medication. This problem has been stable in address. 04/30/2024 History of depression (ICD-10 - Z86.59) The depression is currently in remission and he will remain on his current medication. 07/04/2024 Tailors bunion of left foot (ICD-10 - M21.622) He has seen a food and beverage analyst for this remains under the food and beverage analyst care. 07/29/2024 ADHD (attention deficit hyperactivity disorder) (ICD-10 - F90.9) He says his work and personal life or suffering. He was referred to mental health for evaluation diagnosis and treatment. He is still waiting for the appointment. I will doing to prescribe the medication if I can find records where the diagnosis was made. 12/22/2024 Lumbago with sciatica, left side (ICD-10 - M54.42) He will continue on current therapy without change. 04/02/2024 Former smoker (ICD-10 - Z87.891) He is motivated not to smoke. We formulated a plan to prevent relapse in times of stress and illness. 07/04/2024 Lumbago with sciatica, left side (ICD-10 - [...] He was referred back to pain management. 07/04/2024 Former smoker (ICD-10 - Z87.891) He is motivated not to smoke. We formulated a plan to prevent relapse in times of stress and illness. 07/04/2024 ADHD (attention deficit hyperactivity disorder) (ICD-10 - F90.9) He says his work and personal life or suffering. He was referred to mental health for evaluation diagnosis and treatment. Plan Of Treatment Pending Test Test Name Order Date PROFILE, FASTING (COMPREHENSIVE METABOLI C) 10/11/2021 PROFILE, FASTING (COMPREHENSIVE METABOLI C) 06/07/2022 PROFILE, FASTING (COMPREHENSIVE METABOLI C) 07/04/2024 PROFILE, FASTING (COMPREHENSIVE METABOLI C) 07/15/2021 PROFILE, FASTING (COMPREHENSIVE METABOLI C) 12/22/2024 PROFILE, FASTING (COMPREHENSIVE METABOLI C) 04/11/2023 PROFILE, RANDOM (COMPREHENSIVE METABOLIC ) 07/28/2020 PROFILE, RANDOM (COMPREHENSIVE METABOLIC ) 04/02/2024 LIPID PANEL 10/11/2021 LIPID PANEL 07/15/2021 LIPID PANEL 07/28/2020 LIPID PANEL 04/11/2023 FREE T4 (FT4) 10/11/2021 FREE T4 (FT4) 07/04/2024 TSH (THYROID STIMULATING HORMONE) 2021 TSH (THYROID STIMULATING HORMONE) 2023 PSA, TOTAL 04/11/2023 PSA, TOTAL 07/15/2021 PSA, TOTAL 12/22/2024 PSA, TOTAL 07/28/2020 PSA, TOTAL 07/04/2024 CBC w DIFF 04/11/2023 CBC w DIFF 06/07/2022 CBC w DIFF 10/11/2021 CBC w DIFF 07/15/2021 CBC w DIFF 12/22/2024 CBC w DIFF 07/28/2020 SED RATE (ESR) 07/28/2020 ALPHA-FETOPROTEIN,TUMOR MARKER TESTOSTERONE, FREE AND TOTAL 04/11/2023 TESTOSTERONE, TOTAL 10/11/2021 CBC WITH AUTO DIFF 07/04/2024 CBC WITH AUTO DIFF 04/02/2024 Lipid Panel 12/22/2024 Lipid Panel 07/04/2024 Lipid Panel 06/07/2022 Testosterone, Total 04/02/2024 Testosterone, Total 12/22/2024 Next Appt Details Provider Name:Ricardo Romo, 01/19/2025 09:45:00 AM, [address] [place] [address] [address], [place], [phone], Provider Name:Ricardo Romo, 07/06/2025 02:00:00 PM, [address] [place] [address] [address], [place], [phone], Insurance Providers Payer Name Payer Address Payer Phone Subscriber Number Group Number Insured Name Patient Relationship to Insured Coverage Start Date Coverage End Date [facility] [address] [place] [phone] [id number] Rosalio Hugo Self - patient is the insured 2 Medical (General) History Medical History History ICD Code Attention deficit disorder, unspecified hyperactivity presence F98.8 Sleep walking disorder F51.3 former smoker history of depression tailor's bunion left foot history of Raynaud's syndrome left wrist fracture low back pain radiated down the left sowmya e Surgical History Surgery Date(Month/Year) No history Tooth implants 2021 Hospitalization History Reason Date(Month/Year) No history
--- OUTSIDE RECORDS SUMMARY | 2025-01-13 14:30 | XMS_ITS ---
Author Organization Ricardo Romo III, MD Address [address] [place] [address] Care Team Providers Care Physical Chemistry Professor Name Role Phone Ricardo Romo Primary Care [...] Provider Speciality Internal M edicine Referred Provider [facility], Pulmonology Referred Provider Specialty Pulmonary [facility] General Notes Mely Mccabe 12/29/2024 03:31:26 PM > Referral and progress note faxed.Eliot Amber 01/01/2025 09:34:13 AM > Patient called [facility] Pulmonary he spoke with their office was told they are waiting for the specialist to review all documentations before the patient is scheduled.Eliot Amber 01/01/2025 03:21:47 PM > Ana from Pulmonary calling to confirm they are scheduling the sleep study for the patient. Referral Priority Routine REASON FOR VISIT Daytime somnolence, Excessive nocturnal [...] Date Provider Diagnosis Ricardo Romo III, MD [address] [place] [address] [place] [address] 12/22/2024 Ricardo Romo Benign prostatic hyperplasia, unspecified [...] Consult and Treat Needs Sleep Study, Pulmonology [facility] Next Appt Details Follow Up: 2 Weeks, Reason: OV Provider Name:Ricardo Romo, 01/19/2025 09:45:00 AM, [address] [place] [address] [address], [place], [phone], Provider Name:Ricardo Romo, 07/06/2025 02:00:00 PM, [address] [place] [address] [address], [place], [phone], Progress Notes * Rosalio ANDINO IDOB: (49 yo M)Acc No.[id number]:12/22/2024 Progress Notes Patient:?Keyon ANDINO I Provider:?Ricardo Romo MD :1975???Age:49 Y???Sex:Male Yobany e:12/22/2024 Address:[address] [place], [place] [id number] Subjective: * Chief Complaints: * ???Daytime somnolenceExcessi ve nocturnal snoringObesityHistory of depressionBenign prostatic hypertrophyLumbar radiculopathy * HPI: ???COVID-19 Screening:? He comes to the office today at the request of his because of extreme and excessive nocturnal snoring.? He has centripetal obesity.? He has also been very sleepy during the day, taking naps.? He feels sleepy during driving.? He is concerned that he may have sleep apnea.? I have agreed and ordered a sleep study to be done at home. Conference blood work was also requested.? His testosterone level has been normal.? A repeat followup visit was arranged. ?Questions?Have you had any new onset fever, chills, cough, congestion, sore throat, shortness of breath, muscle aches??No * ROS:?General/Constitutional:?pain?only normal aches and pains.?Chills?denies.?Fatigue?admits.?Fever?denies.?ENT:?Decreased hearing?denies.?Respiratory:?Cough?denies.?Cardiovascular:?Chest pain with exertion?denies.?Dyspnea on exertion?denies.?Shortness of breath?denies.?Gastrointestinal:?Constipation?occasional.?Decreased appetite?denies.?Diarrhea?denies.?Heartburn?denies.?Nausea?denies.?Rectal bleeding?denies.?Vomiting?denies.?Hematology:?bruising?denies.?petechiae?denies.?Swollen glands?none have been noted.?Genitourinary:?Frequent urination?once a night.?Musculoskeletal:?Muscle aches?denies.?Painful joints?denies.?Sciatica?denies.?Weakness?denies.?Skin:?Itching?denies.?Rash?denies.?Skin lesion(s)?denies.?Neurologic:?Difficulty speaking?denies.?Dizziness?denies.?Headache?denies.?Low back pain?denies.?Psychiatric:?Depressed mood?denies.? * Medical History:? * Surgical History:?Tooth impl ants 2021No history * Hospitalization/Major Diagno stic Procedure:?No history * Family History:?Father: jay jay johnson, No information.?Mother: , aids,diabetes. Osteoarthritis, diagnosed with DM.?Maternal aunt: , pancreatic cancer.?2 son(s) , 1 daughter(s) - healthy. .? His children are healthy and well. Maternal Great grandmother of cancer. * Social History:?Tobacco Use:?Tobacco Control (Standard)?Tobacco use:?Former smoker ?How long has it been since you last smoked??1-5 years ?Additional Findings: Tobacco non-user?Ex-cigarette smoker ???He was born in [place]. He is working at a [employer]. He has been for 24 years to Ana and they have 3 healthy children. He is a former smoker. * Medications:?None * Allergies:?No Known Drug All ergyno[Allergies Verified] Objective: * Vitals:?Ht: 69.5, Wt: 213, B VA:31, BP: 131/80, HR: 80, Temp: 98.6, Wt-k.62. * Examination: ???General Examination: ?GENERAL APPEARANCE:?pleasant, well nourished, well developed, in no acute distress, calm and relaxed, tired and sleepy appearing?obese, man.?HEAD:?atraumatic, normocephalic.?EYES:?eomi, perrla, anicteric, conjugate.?EARS:?normal.?NOSE:?septum intact.?ORAL CAVITY:?normal, unremarkable.?NECK/THYROID:?no jugular venous distention, no carotid bruit, thyroid normal.?LYMPH NODES:?no enlarged lymph nodes,spleen normal.?SKIN:?no suspicious lesions, anicteric.?HEART:?no clicks, gallops, murmurs, or rubs, regular rhythm, S1, S2 normal, no s3, or vascular bruits.?LUNGS:?clear to auscultation .?BREASTS:??no masses palpable bilaterally.?ABDOMEN:?bowel sounds normal, no ascites, no organomegaly, no mass, centripital obesity.?RECTAL EXAM:?not examined.?MUSCULOSKELETAL:?extremities unremarkable, no clubbing, cyanosis or edema,, Mild decreased range of motion lumbar spine.?PERIPHERAL PULSES:?normal.?NEUROLOGIC:?alert and oriented, cranial nerves 2-12 grossly intact, deep tendon reflexes 2+ symmetrical, motor strength normal upper and lower extremities, sensory exam intact.?PSYCH:?alert, oriented.? Assessment: * Assessment: 1.?Daytime somnolence - R40. 0 (Primary)???Notes :He has several risk factors for having sleep apnea which her obesity and daytime somnolence and a history of severe snoring.? A sleep study has been ordered.???2.?Benign prostatic hyperplasia, unspecified whether lower urinary tract symptoms present - N40.0???3.?Obesity (BMI 30-39.9) - E66.9???Notes :His weight remains in the obese range.? We have discussed his diet and nutrition.? We have made a plan to lose weight at a rate of one half of a pound per week through a diet restricted in fact calories and sodium and concentrated sweets.? I recommended regular exercise.???4.?History of depression - Z86.59???Notes :He seems to be sad and depressed and withdrawn today. He says it is his ADHD coping for or and to be unproductive. He says he would be restored to normal with oral. I have referred him to the Center development or mental health treatment evaluation diagnosis and ultimately therapy if necessary.???5.?Lumbago with sciatica, left side - M54.42???Notes :He will continue on current therapy without change.???6.?Former smoker - Z87.891???Notes :He is motivated not to smoke. We formulated a plan to prevent relapse in times of stress and illness.??? Plan: * Treatment: 2.?Benign prostatic hyperpla rafi, unspecified whether lower urinary tract symptoms present?LAB: PROFILE, FASTING (COMPREHENSIVE METABOLIC) ?LAB: PSA, TOTAL ?LAB: CBC w DIFF ?LAB: Lipid Panel ?LAB: Testosterone, Total 3.?Obesity (BMI 30-39.9)?LAB: PROFILE, FASTING (COMPREHENSIVE METABOLIC) ?LAB: PSA, TOTAL ?LAB: CBC w DIFF ?LAB: Lipid Panel ?LAB: Testosterone, Total 4.?Others? Referral To:Pulmonology [facility]??Pulmonary Diseases ?Reason:Consult and Treat Needs Sleep Study * Procedure Codes:? * Preventive Medicine:? ??Counseling:?Care goal follow-up plan:?Counseling [...] dangers of tobacco use and urged to quit.?12/22/2024 * Follow Up:?2 Weeks (Reason: OV) * Images: * Sign off status: Completed true * Provider:?Ricardo Romo MD Date:?12/09 Generated for Agus nelson/Faxing/eTransmitting on:?01/13/2025 02:30 PM EDT History and Physical Notes * [...] Referral Date Referring Provider Referred Provider Not kashif 12/22/2024 Ricardo Romo [facility], Pulmonology Consult and Treat Needs Sleep Study
--- OUTSIDE RECORDS SUMMARY | 2025-01-13 14:30 | XMS_ITS ---
Author Organization [facility] Address [address] [place] [id number] Care Team Providers Care Edi Architect Name Role Phone Clarissa SANTANA, Ricardo Primary Care Provider UnavailRicardo Madera [phone] REASON FOR VISIT erosive esophagitis Encounters Encounter Location Date Provider Diagnosis [facility] [address] [place] [phone] 12/04/2024 Ricardo Flor Plan Of Treatment No Information Progress Notes * FRANSISCO ANDINOSDOB:[birth year] (49 yo M)Acc No.[id number]:12/04/2024 Progress Notes Patient:?FRANSISCO ANDINO Provider:?Ricardo Flor MD :1975???Age:49 Y???Sex:Male Yobany e:12/04/2024 Address:[address] [place], [place] [id number] Pcp:Ricardo Romo MD Subjective: * Chief Complaints: * ???1. Erosive esophagitis. * Medical History:? Objective: * Vitals:? Assessment: Plan: * Treatment: * * The named appointment provid er may or may not be the originator of this progress note, and it is not deemed complete until electronically signed by the appointment provider. Sign off status: Pending * Provider:?Ricardo Flor MD Date:? 025 Generated for Dimasi ng/Faledyg/eTransmitting on:?01/13/2025 02:29 PM EDT
--- OUTSIDE RECORDS SUMMARY | 2025-01-13 14:30 | XMS_ITS ---
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 Name Role Phone Ricardo Romo MD Primary Care Provider Ricardo Mccauley Unavailable [phone] REASON FOR VISIT ERROSIVE ESOPHAGITIS Medications Medication SIG (Take, Route, Fr equency, Duration) Notes Start Date End Date Status Omeprazole 20 MG 1 capsule every morn ing Orally Once a day for 30 days 12/09/2024 Active Omeprazole 40 MG 1 Orally Once a day every morning for 30 day(s) 03/06/2024 Active Social History Tobacco Use: Social History Observation Description Date Details (start date - stop date) Former Smoker NA - NA Tobacco Use/Smoking Question Answer Notes Patient is [...] drinks (1 point) Points 4 Interpretation Positive AUDIT-C (Standard) Question Answer Notes Did you have a drink contain ing alcohol in the past year? Yes How often did you have a dri nk containing alcohol in the past year? 2 to 4 times a month (2 points) How many drinks did you have on a typical day when you were drinking in the past year? 1 or 2 drinks (0 point) How often did you have six o r more drinks on one occasion in the past year? Never (0 point) Points 2 Interpretation Negative Section Notes: Nonsmoker; 64-128 onces of B eer with 8% alcohol about twice a week. 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 Vital Signs Blood pressure systolic 111 mm Hg 12/10/19 25 Blood pressure diastolic 11 mm Hg 025 Height 70 in 12/09/2024 Weight 217 lbs 12/09/2024 BMI 31.13 kg/m2 12/09/2024 Procedures Procedure Date Ordered Date Performed Result Body Sit e UPPER GI ENDOSCOPY 12/09/2024 N/A Encounters Encounter Location Date Provider Diagnosis [facility] [address] [place] [address] 12/09/2024 Ricardo Flor Erosive esophagitis K22.10 ; Daily esophagus K22.70 ; Hiatal hernia K44.9 and Colon cancer screening Z12.11 Assessments Encounter Date Diagnosis (ICD Code) Assessment Notes Treatment Notes Treatment Clinical Notes Section Notes 12/09/2024 Erosive esophagitis (ICD-10 - K22.10) Overall, Qamar appears well and is symptomatically much improved on the omeprazole. We did have a detailed discussion today regarding the upper endoscopy findings and the significance of Daily's esophagus with its theoretical association with the increased risk of esophageal cancer. As such, I did advise him to continue the omeprazole but I will try to see if he can tolerate 20 mg rather than 40. However, I did advise him that if his heartburn returns on the 20 mg dose he should then simply resume the 40 mg dose instead. Given the degree of esophagitis with the Daily's esophagus seen on the endoscopy last year I have recommended a follow-up endoscopy to assess for healing and to fully obtain biopsies from the Daily's esophagus so as to rule out any associated dysplasia. We did review that if there is no dysplasia I would then recommend a follow-up endoscopy every 3 years thereafter. We did review the importance of watching his diet, watching his weight, minimizing caffeine, and avoiding things like smoking and alcohol in regard to things that can worsen acid reflux. Full consent has been obtained for the follow-up endoscopy, including risks of bleeding and perforation. The procedure will be done with monitored anesthesia care. We did review the negative screening colonoscopy and the need for a follow-up screening colonoscopy in 2033. Qamar was comfortable with this plan. Thank you again for allowing me to participate in Qamar's care. I shall continue to keep you advised of his progress. 12/09/2024 Daily esophagus (ICD-10 - K22.70) You will need surveillance upper endoscopies every 3 years for the Daily's esophagus You can try to switch to the 20mg omeprazole daily for the acid reflux but go back on the 40 mg if the acid reflux gets worse on the 20mg. Overall, Qamar appears well and is symptomatically much improved on the omeprazole. We did have a detailed discussion today regarding the upper endoscopy findings and the significance of Daily's esophagus with its theoretical association with the increased risk of esophageal cancer. As such, I did advise him to continue the omeprazole but I will try to see if he can tolerate 20 mg rather than 40. However, I did advise him that if his heartburn returns on the 20 mg dose he should then simply resume the 40 mg dose instead. Given the degree of esophagitis with the Daily's esophagus seen on the endoscopy last year I have recommended a follow-up endoscopy to assess for healing and to fully obtain biopsies from the Daily's esophagus so as to rule out any associated dysplasia. We did review that if there is no dysplasia I would then recommend a follow-up endoscopy every 3 years thereafter. We did review the importance of watching his diet, watching his weight, minimizing caffeine, and avoiding things like smoking and alcohol in regard to things that can worsen acid reflux. Full consent has been obtained for the follow-up endoscopy, including risks of bleeding and perforation. The procedure will be done with monitored anesthesia care. We did review the negative screening colonoscopy and the need for a follow-up screening colonoscopy in 2033. Qamar was comfortable with this plan. Thank you again for allowing me to participate in Qamar's care. I shall continue to keep you advised of his progress. 12/09/2024 Hiatal hernia (ICD-10 - K44.9) Overall, Qamar appears well and is symptomatically much improved on the omeprazole. We did have a detailed discussion today regarding the upper endoscopy findings and the significance of Daily's esophagus with its theoretical association with the increased risk of esophageal cancer. As such, I did advise him to continue the omeprazole but I will try to see if he can tolerate 20 mg rather than 40. However, I did advise him that if his heartburn returns on the 20 mg dose he should then simply resume the 40 mg dose instead. Given the degree of esophagitis with the Daily's esophagus seen on the endoscopy last year I have recommended a follow-up endoscopy to assess for healing and to fully obtain biopsies from the Daily's esophagus so as to rule out any associated dysplasia. We did review that if there is no dysplasia I would then recommend a follow-up endoscopy every 3 years thereafter. We did review the importance of watching his diet, watching his weight, minimizing caffeine, and avoiding things like smoking and alcohol in regard to things that can worsen acid reflux. Full consent has been obtained for the follow-up endoscopy, including risks of bleeding and perforation. The procedure will be done with monitored anesthesia care. We did review the negative screening colonoscopy and the need for a follow-up screening colonoscopy in 2033. Qamar was comfortable with this plan. Thank you again for allowing me to participate in Qamar's care. I shall continue to keep you advised of his progress. 12/09/2024 Colon cancer screening (ICD-10 - Z12.11) Repeat colonoscopy in 2033 Overall, Qamar appears well and is symptomatically much improved on the omeprazole. We did have a detailed discussion today regarding the upper endoscopy findings and the significance of Daily's esophagus with its theoretical association with the increased risk of esophageal cancer. As such, I did advise him to continue the omeprazole but I will try to see if he can tolerate 20 mg rather than 40. However, I did advise him that if his heartburn returns on the 20 mg dose he should then simply resume the 40 mg dose instead. Given the degree of esophagitis with the Daily's esophagus seen on the endoscopy last year I have recommended a follow-up endoscopy to assess for healing and to fully obtain biopsies from the Daily's esophagus so as to rule out any associated dysplasia. We did review that if there is no dysplasia I would then recommend a follow-up endoscopy every 3 years thereafter. We did review the importance of watching his diet, watching his weight, minimizing caffeine, and avoiding things like smoking and alcohol in regard to things that can worsen acid reflux. Full consent has been obtained for the follow-up endoscopy, including risks of bleeding and perforation. The procedure will be done with monitored anesthesia care. We did review the negative screening colonoscopy and the need for a follow-up screening colonoscopy in 2033. Qamar was comfortable with this plan. Thank you again for allowing me to participate in Qamar's care. I shall continue to keep you advised of his progress. Plan Of Treatment Medication Medication Name Sig Start Date Stop Date Notes Omeprazole 20 MG 1 capsule every morn ing Orally Once a day for 30 days 12/09/2024 Treatment Notes Assessment Notes Daily esophagus You will need surveillance upper endoscopies every 3 years for the Daily's esophagus You can try to switch to the 20mg omeprazole daily for the acid reflux but go back on the 40 mg if the acid reflux gets worse on the 20mg. Colon cancer screening Repeat colonoscop y in 2033 Pending Test Test Name Order Date UPPER GI ENDOSCOPY 12/09/2024 Next Appt Details Follow Up: prn, Reason: Progress Notes * FRANSISCO ANDINOSDOB:[birth year] (49 yo M)Acc No.[id number]:12/09/2024 Progress Notes Patient:?FRANSISCO ANDINO Provider:?Ricardo Flor MD :1975???Age:49 Y???Sex:Male Yobany e:12/09/2024 Address:[address] [place] [address] Pcp:Ricardo Romo MD Subjective: * Chief Complaints: * ???ERROSIVE ESOPHAGITIS * HPI: ???incontinence:? I saw Qamar in follow-up today in regard to his chronic gastroesophageal reflux with associated erosive esophagitis and the finding of Daily's esophagus. I last saw Qamar in July 2024, at which time he underwent a screening colonoscopy and upper endoscopy. The colonoscopy was negative for any polyps. The upper endoscopy did reveal a small hiatal hernia, significant erosive esophagitis, and Daily's esophagus without dysplasia. At that time I advised him to resume his omeprazole 40 mg daily. He had been on that prior to the procedure but had stopped it for some time. Since having resumed his daily omeprazole he is definitely feeling much better. He finds that if he misses even 1 or 2 doses his heartburn and reflux will return promptly. Currently he is eating comfortably and denies any significant heartburn or dysphagia. He denies any nausea, vomiting, nor early satiety. His bowel movements have remained regular and without any signs of bleeding. He denies any abdominal pains, jaundice, nor weight loss. His abdominal ultrasound from last March was negative for gallstones. * ROS:?General/Constitutional:?Change in appetite?denies.?Chills?denies.?Fatigue?denies.?Ophthalmologic:?Comments?all negative.?ENT:?Comments?all negative.?Respiratory:?hemoptysis?denies.?Cough?denies.?Cardiovascular:?Chest pain?denies.?Orthopnea?denies.?Gastrointestinal:?Comments?See HPI for details.?Genitourinary:?Hematuria?denies.?Dysuria?denies.?Musculoskeletal:?Painful joints?denies.?Weakness?denies.?Skin:?Itching?denies.?Rash?denies.?Neurologic:?Headache?denies.?Seizures?denies.?Psychiatric:?Comments?all negative.? * Medical History:? * Surgical History:?Denies Pas t Surgical History * Hospitalization/Major Diagno stic Procedure:?No Hospitalization History. * Family History:?Father: jay jay brown?Mother: .? No known hx of colon cancer. * Social History:?Tobacco Use:?Tobacco Use/Smoking?Patient is a?former smoker,?How long has it been since you last smoked??5-10 years.?Drugs/Alcohol:?Alcohol Screen?Did you have a drink containing alcohol in the past year??Yes,?How often did you have a drink containing alcohol in the past year??2 to 3 times a week (3 points),?How many drinks did you have on a typical day when you were drinking in the past year??3 or 4 drinks (1 point),?Points?4,?Interpretation?Positive.?Miscellaneous:?Marital status: . 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 ???Drug/Alcohol:?AUDIT-C (Standard)?Did you have a drink containing alcohol in the past year??Yes,?How often did you have a drink containing alcohol in the past year??2 to 4 times a month (2 points),?How many drinks did you have on a typical day when you were drinking in the past year??1 or 2 drinks (0 point),?How often did you have six or more drinks on one occasion in the past year??Never (0 point),?Points?2,?Interpretation?Negative.?Nonsmoker; 64-128 onces of Beer with 8% alcohol about twice a week. * Medications:?TakingOmeprazol e 40 MG Capsule Delayed Release 1 Orally Once a day every morning Medication List reviewed and reconciled with the patientTaking Omeprazole 40 MG Capsule Delayed Release 1 Orally Once a day every morning Medication List reviewed and reconciled with the patient Objective: * Vitals:?Wt:217lbs, Ht: 70 in , BMI:31.13Index, BP:111/11mm Hg, Ht-cm: 177.8, Wt- k.43. * Examination: ???General Examination: ?GENERAL APPEARANCE:?pleasant, well nourished, well developed, in no acute distress.?EYES:?sclera non-icteric.?ORAL CAVITY:?mucosa moist.?NECK/THYROID:?no cervical lymphadenopathy, neck supple.?SKIN:?nonjaundiced, no spider angiomata.?HEART:?S1, S2 normal.?LUNGS:?clear to auscultation bilaterally.?ABDOMEN:?normal bowel sounds, no guarding or rigidity, no guarding or rigidity, no masses palpable, soft, nontender, nondistended.?EXTREMITIES:?no edema.?NEUROLOGIC:?alert and oriented.? Assessment: * Assessment: 1.?Erosive esophagitis - K22 .10 (Primary)???2.?Daily esophagus - K22.70???3.?Hiatal hernia - K44.9???4.?Colon cancer screening - Z12.11??? Overall, Qamar appears well and is symptomatically much improved on the omeprazole. We did have a detailed discussion today regarding the upper endoscopy findings and the significance of Daily's esophagus with its theoretical association with the increased risk of esophageal cancer. As such, I did advise him to continue the omeprazole but I will try to see if he can tolerate 20 mg rather than 40. However, I did advise him that if his heartburn returns on the 20 mg dose he should then simply resume the 40 mg dose instead. Given the degree of esophagitis with the Daily's esophagus seen on the endoscopy last year I have recommended a follow-up endoscopy to assess for healing and to fully obtain biopsies from the Daily's esophagus so as to rule out any associated dysplasia. We did review that if there is no dysplasia I would then recommend a follow-up endoscopy every 3 years thereafter. We did review the importance of watching his diet, watching his weight, minimizing caffeine, and avoiding things like smoking and alcohol in regard to things that can worsen acid reflux. Full consent has been obtained for the follow-up endoscopy, including risks of bleeding and perforation. The procedure will be done with monitored anesthesia care. We did review the negative screening colonoscopy and the need for a follow-up screening colonoscopy in 2033. Qamar was comfortable with this plan. Thank you again for allowing me to participate in Qamar's care. I shall continue to keep you advised of his progress. Plan: * Treatment: 2.?Daily esophagus?Procedure: UPPER GI ENDOSCOPY* with MACsched for 01/26/25 at 2:10 pm Notes: You will need surveillance upper endoscopies every 3 years for the Daily's esophagus You can try to switch to the 20mg omeprazole daily for the acid reflux but go back on the 40 mg if the acid reflux gets worse on the 20mg.??3.?Colon cancer screening? Notes: Repeat colonoscopy in 2033?? * Procedure Codes:?53308 UPPR GI ENDOSCOPY, [id number] COLORECTAL CA SCREEN DOC [id number] TOBACCO [id number] BP SCR NOT PRFRM REC REASON NOS * Preventive Medicine:? ??Counseling:?Care goal follow-up plan:?Above Normal BMI Follow-up?Giving encouragement to exercise,?BMI management provided?Yes.? * Follow Up:?prn * * Sign off status: Completed true * Provider:?Ricardo Flor MD Date:? 025 Generated for Dimasi omar/Naila/eTransmitting on:?01/13/2025 02:29 PM EDT History and Physical Notes * Examination Category Sub-Category Detail Notes Category Not es General Examination GENERAL APPEARANCE: pleasant , well [...]
--- OUTSIDE RECORDS SUMMARY | 2025-01-13 14:30 | XMS_ITS ---
Author Organization Ricardo Romo III, MD Address [address] [address] Care Team Providers Care Labor Relations Director Name Role Phone Ricardo Romo Primary Care Provider [phone] Allergies Allergen (clinical drug ingredient) Drug/Non Drug Allergy documented on EMR Reaction Allergy Type Onset Date Status No Known Drug Allergy Unknown Drug Allergy Active REASON FOR VISIT Concern Social History Tobacco Use: Social History Observation [...] Date Provider Diagnosis Ricardo Romo III, MD [address] [place] [address] [place] [address] 12/19/2024 Ricardo Romo Plan Of Treatment Next Appt Details Provider Name:Ricardo Romo, 01/19/2025 09:45:00 AM, [address] [place] [address] [place], [address], Provider Name:Ricardo Romo, 07/06/2025 02:00:00 PM, [address] [place] [address] [place], [address], Progress Notes * Rosalio ANDINO IDOB: (49 yo M)Acc No.[id number]:12/19/2024 Patient:?Keyon ANDINO s I Provider:?Ricardo Romo MD :1975???Age:49 Y???Sex:Male Yobany e:12/19/2024 Address:[address] [place] [address] [id number] Subjective: * Chief Complaints: * ???1. Concern. * HPI: ???COVID-19 Screening:?Questions?Have you had any new onset fever, chills, cough, congestion, sore throat, shortness of breath, muscle aches??No * ROS:?General/Constitutional:?pain?only normal aches and pains.?Chills?denies.?Fatigue?admits.?Fever?denies.?ENT:?Decreased hearing?denies.?Respiratory:?Cough?denies.?Cardiovascular:?Chest pain with exertion?denies.?Dyspnea on exertion?denies.?Shortness of breath?denies.?Gastrointestinal:?Constipation?denies.?Decreased appetite?denies.?Diarrhea?denies.?Heartburn?denies.?Nausea?denies.?Rectal bleeding?denies.?Vomiting?denies.?Hematology:?bruising?denies.?petechiae?denies.?Swollen glands?none have been noted.?Genitourinary:?Frequent urination?denies.?Musculoskeletal:?Muscle aches?denies.?Painful joints?denies.?Sciatica?denies.?Weakness?denies.?Skin:?Itching?denies.?Rash?denies.?Skin lesion(s)?denies.?Neurologic:?Difficulty speaking?denies.?Dizziness?denies.?Headache?denies.?Low back pain?denies.?Psychiatric:?Depressed mood?denies.? * Medical History:?Attention d eficit disorder, unspecified hyperactivity presence, Sleep walking disorder, Former smoker, History of depression, Tailor's bunion left foot, history of Raynaud's syndrome, Left wrist fracture, Low back pain radiated down the left side. * Surgical History:?Tooth impl ants 2021, No history . * Hospitalization/Major Diagno stic Procedure:?No history . * Family History:?Father: jay jay johnson, No information.?Mother: , aids,diabetes. Osteoarthritis, diagnosed with DM.?Maternal aunt: , pancreatic cancer.?2 son(s) , 1 daughter(s) - healthy. .? His children are healthy and well. Maternal Great grandmother of cancer. * Social History:?Tobacco Use:?Tobacco Control (Standard)?Tobacco use:?Former smoker ?How long has it been since you last smoked??1-5 years ?Additional Findings: Tobacco non-user?Ex-cigarette smoker ???He was born in [place]. He is working at a [employer]. He has been for 24 years to Ana and they have 3 healthy children. He is a former smoker. * Medications:?Discontinued Az ithromycin 250 MG Tablet daily Orally 2 Tablets on the first day, one tablet the rest of the days , Medication List reviewed and reconciled with the patient * Allergies:?No Known Drug All ergy. Objective: * Vitals:? * Examination: ???General Examination: ?GENERAL APPEARANCE:?pleasant, well nourished, well developed, in no acute distress, calm and relaxed.?HEAD:?atraumatic, normocephalic.?EYES:?eomi, perrla, anicteric, conjugate.?EARS:?normal.?NOSE:?septum intact.?ORAL CAVITY:?normal, unremarkable.?NECK/THYROID:?no jugular venous distention, no carotid bruit, thyroid normal.?LYMPH NODES:?no enlarged lymph nodes,spleen normal.?SKIN:?no suspicious lesions, anicteric.?HEART:?no clicks, gallops, murmurs, or rubs, regular rhythm, S1, S2 normal, no s3, or vascular bruits.?LUNGS:?clear to auscultation .?BREASTS:??no masses palpable bilaterally.?ABDOMEN:?bowel sounds normal, no ascites, no organomegaly, no mass.?RECTAL EXAM:?not examined.?MUSCULOSKELETAL:?extremities unremarkable, no clubbing, cyanosis or edema.?PERIPHERAL PULSES:?normal.?NEUROLOGIC:?alert and oriented, cranial nerves 2-12 grossly intact, deep tendon reflexes 2+ symmetrical, motor strength normal upper and lower extremities, sensory exam intact.?PSYCH:?alert, oriented.? Assessment: Plan: * Treatment: * Images: * The named appointment provid er may or may not be the originator of this progress note, and it is not deemed complete until electronically signed by the appointment provider. Sign off status: Pending * Provider:?Ricardo Romo MD Date:?12/09 Generated for Agus nelson/Naila/eTransmitting on:?01/13/2025 02:29 PM EDT History and Physical [...]
--- OUTSIDE RECORDS SUMMARY | 2025-01-13 14:31 | XMS_ITS | Patient Health Record ---
Author Organization [facility] Address [address] [place] [address] Care Team Providers Care Oysterman Name Role Phone Ricardo Romo MD Primary Care Provider Unavailab Ricardo Mccormick [phone] Results Component Value Reference Range Notes US abdomen complete Reviewed date:06/26/2024 07:33:35 PM Interpretation: Performing Lab: Notes/Report: [address] [address] Ultrasound Report Signed Patient: Qamar Andino MR#: [id number] : 1975 Acct:[id number] Age/Sex: 48 / M ADM Date: 03/14/24 Loc: HO.US Attending Dr: Ricardo Flor MD Ordering Physician: Ricardo Flor MD Date of Service: 03/14/24 Procedure(s): US abdomen complete Accession Number(s): [id number] cc: Ricardo Romo MD; Ricardo Flor MD EXAMINATION: US ABDOMEN COMPLETE CLINICAL INFORMATION: Epigastric pain. COMPARISON: None available. TECHNIQUE: Real-time imaging of the abdominal viscera. Limited visualization due to bowel gas. FINDINGS: PANCREAS: Limited visualization of pancreatic tail and head. Imaged portion of pancreatic body is unremarkable. ABDOMINAL AORTA: Limited visualization. Imaged portion of skp-wo-mwmbqq abdominal aorta is not aneurysmal. INFERIOR VENA [...] in OV> 04/02/24 1404 DD/ 0948 TD/TT: Pipeline Construction Inspector: [place] [id number] Ultrasound Report Signed Patient: Qamar oLpez MR#: [id number] : 1975 Acct:[id number] Age/Sex: 48 / M ADM Date: 03/14/24 Loc: HO.US Attending Dr: Ricardo Flor MD Ordering Physician: Ricardo Flor MD Date of Service: 03/14/24 Procedure(s): US abd omen complete Accession Number(s): [id number] cc: Ricardo Romo MD; Ricardo Flor MD EXAMINATION: US ABDOMEN COMPLETE CLINICAL INFORMATION: Epigastric pain. COMPARISON: None available. TECHNIQUE: Real-time imaging of the abdominal viscera. Limited visualization due to bowel gas. FINDINGS: PANCREAS: Limited vi sualization of pancreatic tail and head. Imaged portion of pancreati c body is unremarkable. ABDOMINAL AORTA: Conroy ited visualization. Imaged portion of bcx-kc-qepcfq abdominal aorta is n ot aneurysmal. INFERIOR [...] in OV> 04/02/24 1404 DD/ 0948 TD/TT: Pipeline Construction Inspector: Pathology Reviewed date:12/09/2024 10:56:43 AM Interpretation: Performing Lab:[facility], [address] [place] [phone] Notes/Report: Name: Suzette Andino Age/Sex: 48/M : 1975 Unit#: [id number] Attend Dr: Ricardo Flor MD Re06/27/24 Status : [facility] [place] Location: [facility] Disch: SPEC : [id number] RECD : 06/27/24 STATUS: PORTIA STEINBERG NUM: [id number] TIM: 06/27/24-1219 [facility] DR: Ricardo Flor MD ENTERED: 06/27/24-13 50 SP TYPE: Surgical OTHR DR: Ricardo Romo MD ORDERED: HE Stain/6, Gross Micro L4/2, IHC, H. pylori Addendum Addendum 1 Entered: 07/02/24 Immunostain for H. p ylori on A is negative. Control stains appropriately. Addendum Signed (signature on file) Kayli [place] 07/02/241038 Diagnosis A. Gastric antrum, b iopsy: Gastric antral mucosa with focal ectatic and congested vessels, and minimal chronic inactive gastritis; negative for intestinal metaplasia and dysplasia. B. Esophagus, 35-30 cm, biopsy: Squamous mucosa with active erosive esophagitis, and columnar mucosa with mild inflammation, hyperplasia, and intestinal metaplasia consistent with Daily's esoph arsen; negative for dysplasia. Comment: (A): Immunostain for H. pylori pending; addendum to follow. Clinical History Pre-Op Dx: Eosinophi lic esophagitis Post-Op Dx: Erosive esophagitis, hiatal hernia, hemorrhoids Microscopic Description Microscopic sections reviewed. Material Received A. Gastric antrum B. Esophagus 35-30 cm CONTINUED ON NEXT PAGE Name: Suzette Andino Age/Sex: 48/M : 1975 Unit#: [id number] Attend Dr: Ricardo Flor MD Re06/27/24 Status : [facility] Location: [facility] Disch: SPEC : [id number] RECD : 06/27/24 STATUS: PORTIA STEINBERG NUM: [id number] TIM: 06/27/249 [facility] DR: Ricardo Flor MD ENTERED: 06/27/24 50 SP TYPE: Surgical OTHR DR: Ricardo Romo MD ORDERED: HE Stain/6, Gross Micro L4/2, IHC, H. pylori Gross Description Received in two parts. Part A: Received for bro labeled ?gastric antrum? are 3 high-pink irregular and rectangular tissue fragments ran ging from 0.3-0.4 cm, submitted in toto in a cassette labeled A. Part B: Received in formalin labeled ?esophagus 35-30 cm? are 3 aguilar-pink irregular tissue fragments each measu ring 0.3 cm, submitted in toto a cassette labeled B. CEDS Special studies orde red and performed: Immunostain for H. pylori on A1. Copies To: Ricardo Romo MD [address] [place] [address], [address] [place], [place] [id number] Ricardo Flor MD [facility] [address] [place] [address] [address] [place] [id number] Signed (si gnature on file) Kayli [place] 06/30/24 1204 END OF REPORT Reason For Referral No Information Medications Medication SIG (Take, Route, Fr equency, [...] been since you last smoked? 5-10 years AUDIT-C (Standard) Question Answer Notes Did you [...] with 8% alcohol about twice a week. Nonsmoker; 64-128 onces of B eer with 8% alcohol about twice a week. Problems Problem Type SNOMED Code ICD Code Onset Dates Problem Status W/U Status Risk Notes Problem Colon cancer screening (614368346) Colon cancer screening (Z12.11) Active confirmed Problem Gastro-esophageal reflux disease without esophagitis (612725508) Gastro-esophag eal reflux disease without esophagitis (K21.9) Active confirmed Problem Duodenitis (30543051) Duodenitis (K29.80) Active confirmed Problem Epigastric pain (96539546) Abdominal pain, epigastric (R10.13) Active confirmed Problem Erosive esophagitis (86472177) Erosive esophagitis (K22.10) Active confirmed Problem Daily esophagus (187649865) 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) Active confirmed Problem Gastroesophageal reflux disease (disorder) (479202939) Chronic GERD (K21.9) Active confirmed Vital Signs Blood pressure diastolic 11 mm Hg 12/09/2024 Height 70 in 12/09/2024 Blood pressure systolic 111 mm Hg 12/09/2024 Weight 217 lbs 12/09/2024 BMI 31.13 kg/m2 12/09/2024 Procedures Procedure Date Ordered Date Performed Result Body Sit e UPPER GI ENDOSCOPY 12/09/2024 N/A Encounters Encounter Location Date Provider Diagnosis [facility] Outpatient [address] [place] [phone] 06/27/2024 Ricardo Flor Colon cancer screening Z12.11 ; Other hemorrhoids K64.8 ; Gastro-esophageal reflux disease without esophagitis K21.9 ; Hiatal hernia K44.9 ; Duodenitis K29.80 and Erosive esophagitis K22.10 [facility] [address] [place] [phone] 03/06/2024 Ricardo Flor Chronic GERD K21.9 ; Colon cancer screening Z12.11 and Abdominal pain, epigastric R10.13 [facility] [address] [address] 12/09/2024 Ricardo Flor Erosive esophagitis K22.10 ; Daily esophagus K22.70 ; Hiatal hernia K44.9 and Colon cancer screening Z12.11 [facility] [address] [address] 06/27/2024 Ricardo Flor Chronic GERD K21.9 [facility] [address] [place] [address] [address] [place] [phone] 11/03/2024 Ricardo Flor Assessments Encounter Date Diagnosis (ICD Code) Assessment Notes Treatment Notes Treatment Clinical Notes Section Notes 06/27/2024 Colon cancer screening (ICD-10 - Z12.11) 06/27/2024 Other hemorrhoids (ICD-10 - K64.8) 03/06/2024 Colon cancer screening (ICD-10 - Z12.11) Overall, Qamar appears well from a clinical standpoint. Given his ongoing and long-standing upper GI complaints he did recommend an upper endoscopy for evaluation to rule out any underlying significant esophagitis, Daily's esophagus, H. pylori, or ulcer disease. In the meantime, I shall start him on omeprazole 40 mg daily. I shall also schedule him for an ultrasound of the abdomen to rule out any symptomatic gallstones. I did advise him that he needs to eliminate alcohol and eat a healthy diet to see if that would help improve his upper GI complaints. I also recommended a colonoscopy primarily for screening purposes. He did review the rationale for that regard to colorectal cancer prevention and/or early detection. Full consent was obtained from him for this, including risks of bleeding and perforation. The procedure will be done monitored anesthesia care. Qamar was comfortable with this plan. Thank you again for allowing me to participate in Qamar's care. I shall continue to keep you advised of his progress. 03/06/2024 Chronic GERD (ICD-10 - K21.9) Overall, Qamar appears well from a clinical standpoint. Given his ongoing and long-standing upper GI complaints he did recommend an upper endoscopy for evaluation to rule out any underlying significant esophagitis, Daily's esophagus, H. pylori, or ulcer disease. In the meantime, I shall start him on omeprazole 40 mg daily. I shall also schedule him for an ultrasound of the abdomen to rule out any symptomatic gallstones. I did advise him that he needs to eliminate alcohol and eat a healthy diet to see if that would help improve his upper GI complaints. I also recommended a colonoscopy primarily for screening purposes. He did review the rationale for that regard to colorectal cancer prevention and/or early detection. Full consent was obtained from him for this, including risks of bleeding and perforation. The procedure will be done monitored anesthesia care. Qamar was comfortable with this plan. Thank you again for allowing me to participate in Qamar's care. I shall continue to keep you advised of his progress. 12/09/2024 Erosive esophagitis (ICD-10 - K22.10) Overall, [...] to keep you advised of his progress. 06/27/2024 Chronic GERD (ICD-10 - K21.9) 06/27/2024 Gastro-esophag eal reflux disease without esophagitis (ICD-10 - K21.9) 03/06/2024 Abdominal pain, epigastric (ICD-10 - R10.13) Overall, Qamar appears well from a clinical standpoint. Given his ongoing and long-standing upper GI complaints he did recommend an upper endoscopy for evaluation to rule out any underlying significant esophagitis, Daily's esophagus, H. pylori, or ulcer disease. In the meantime, I shall start him on omeprazole 40 mg daily. I shall also schedule him for an ultrasound of the abdomen to rule out any symptomatic gallstones. I did advise him that he needs to eliminate alcohol and eat a healthy diet to see if that would help improve his upper GI complaints. I also recommended a colonoscopy primarily for screening purposes. He did review the rationale for that regard to colorectal cancer prevention and/or early detection. Full consent was obtained from him for this, including risks of bleeding and perforation. The procedure will be done monitored anesthesia care. Qamar was comfortable with this plan. Thank [...] to keep you advised of his progress. 06/27/2024 Hiatal hernia (ICD-10 - K44.9) 12/09/2024 Colon cancer screening (ICD-10 - Z12.11) [...] to keep you advised of his progress. 06/27/2024 Duodenitis (ICD-10 - K29.80) 06/27/2024 Erosive esophagitis (ICD-10 - K22.10) Plan Of Treatment Pending Test Test Name Order Date UPPER GI ENDOSCOPY 12/09/2024 US abdomen complete 03/06/2024 Future Test Test Name Order Date UPPER GI ENDOSCOPY 03/06/2024 COLONOSCOPY 03/06/2024 Insurance Providers Payer Name Payer Address Payer Phone Subscriber Number Group Number Insured Name Patient Relationship to Insured Coverage Start Date Coverage End Date [facility] [address] [place] [phone] [id number] QAMAR ANDINO Self - patient is the insured Medical (General) History Medical History History ICD Code Denies [place],DM,CVA,Lung disease,renal dise ase GERD--Upper endoscopy in Jul revealed significant erosive esophagitis with underlying Daily's esophagus. Biopsies were negative for dysplasia. A small hiatal hernia was noted as well. He was advised to continue 40 mg omeprazole daily at that time. Negative screening colonoscopy in [facility] er 2023 Surgical History Surgery Date(Month/Year)
--- OUTSIDE RECORDS SUMMARY | 2025-01-13 14:31 | XMS_ITS ---
Author Organization [facility] Address [address] [place] [phone] Care Team Providers Care Street Superintendent Name Role Phone Clarissa SANTANA, Ricardo Primary Care Provider UnavailRicardo Madera [phone] REASON FOR VISIT erosive esophagitis Encounters Encounter Location Date Provider Diagnosis [facility] [address] [place] [phone] 12/16/2024 Ricardo Flor Plan Of Treatment No Information Progress Notes * FRANSISCO ANDINOSDOB:[birth year] (49 yo M)Acc No.[id number]:12/16/2024 Progress Notes Patient:?FRANSISCO ANDINO Provider:?Ricardo Flor MD :1975???Age:49 Y???Sex:Male Yobany e:12/16/2024 Address:[address] [place], [place] [phone] Pcp:Ricardo Romo MD Subjective: * Chief Complaints: [...] Date:? 025 Generated for Dimasi ng/Faledyg/eTransmitting on:?01/13/2025 02:30 PM EDT
--- OUTSIDE RECORDS SUMMARY | 2025-01-13 14:31 | XMS_ITS ---
Author Organization Ricardo Romo III, MD Address [address] [place] [address] Care Team Providers Care Histologist Technologist Name Role Phone Ricardo Romo Primary Care [...] Date Provider Diagnosis Ricardo Romo III, MD [address] [place] [address] [place] [address] 01/06/2025 Ricardo Romo Plan Of Treatment Next Appt Details Provider Name:Ricardo Romo, 01/19/2025 09:45:00 AM, [address] [place] [address] [place], [address], Provider Name:Ricardo Romo, 07/06/2025 02:00:00 PM, [address] [place] [address] [place], [address], Progress Notes * Rosalio ANDINO IDOB: (49 yo M)Acc No.[id number]:01/06/2025 Progress Notes Patient:?ISAAC Keyon FISHER I Provider:?Ricardo Romo MD :1975???Age:49 Y???Sex:Male Yobany e:01/06/2025 [facility] [place] [id number] Subjective: * Chief Complaints: * ???1. Follow up. * HPI: ???COVID-19 Screening:?Questions?Have you had any [...] Tobacco non-user?Ex-cigarette smoker ???He was born in [place]. He is working at a [employer]. He has been for 24 years to Ana and they have 3 healthy children. He is a former smoker. * Medications:?None * Allergies:?No Known Drug All ergy. Objective: [...] off status: Pending * Provider:?Ricardo Romo MD Date:?12/10 Generated for Agus nelson/Naila/eTransmitting on:?01/13/2025 02:30 PM EDT History and Physical [...]
[2025-01-22 14:32] VITALS: BMI 31.1
--- NOTE | 2025-01-23 09:27 | HO.ANESPROP2 ---
Documented by User: Tenisha Betancourt NP 01/23/25 09:28 HPI - Anesthesia Eval Consult details Narrative: 49yo M for Upper Endoscopy PMFSH Active Problems Active Problems: All Active Problems Viral illness (Acute) Vertebrogenic low back pain (Acute) Discogenic lumbar pain (Acute) Lumbar radiculitis (Acute) Past Medical History Medical History Hiatal hernia Daily esophagus Erosive esophagitis GERD (gastroesophageal reflux disease) Lumbar radiculitis Discogenic lumbar pain Vertebrogenic low back pain Family History Family history of problems with anesthesia: No Surgical History Surgical History History of esophagogastroduodenoscopy (EGD) H/O colonoscopy Social History Social History Household Members: Spouse Are you a primary hospice care sales consultant to a significant other at home: No Do you presently have visiting nurse or other home services: No Patient Tobacco Use Status: Former Tobacco user Tobacco use type: Cigarette Use of substances other than those prescribed or required for medical reasons: No Are you DNR?: No Advance Directives: No Advance Directives Information Provided: Yes Meds Allergies Allergy/AdvReac Type Severity Reaction Status Date / Time No Known Allergies Allergy Verified 05/04/23 10:53 Home Medications ?Medication ?Instructions ?Recorded ?Confirmed ?Last Taken ?Type omeprazole 40 mg capsule,delayed 40 mg PO QAM 01/22/25 01/26/25 01/26/25 History release 40 Exam Height,Weight and Vital Signs: Height 5 ft 10 in Weight 98.43 kg Assessment and Plan Assessment Anesthesia Assessment: Chart Reviewed Final Anesthetic Review Family History of Problems with Anesthesia: No Documented by User: Lucia Bauman MD 01/26/25 13:46 PMFSH Past Medical History Medical History Hiatal hernia Daily esophagus Erosive esophagitis GERD (gastroesophageal reflux disease) Lumbar radiculitis Discogenic lumbar pain Vertebrogenic low back pain Surgical History Surgical History History of esophagogastroduodenoscopy (EGD) H/O colonoscopy History of Problems with Anesthesia: No Social History Social History Household Members: Spouse Are you a primary hospice care sales consultant to a significant other at home: No Do you presently have visiting nurse or other home services: No Patient Tobacco Use Status: Former Tobacco user Tobacco use type: Cigarette Use of substances other than those prescribed or required for medical reasons: No Are you DNR?: No Advance Directives: No Advance Directives Information Provided: Yes Meds Allergies Allergy/AdvReac Type Severity Reaction Status Date / Time No Known Allergies Allergy Verified 05/04/23 10:53 Home Medications ?Medication ?Instructions ?Recorded ?Confirmed ?Last Taken ?Type omeprazole 40 mg capsule,delayed 40 mg PO QAM 01/22/25 01/26/25 01/26/25 History release 40 Exam Airway Mallampati Class: II TM Dist: >3cm Neck ROM: Full Loose/Missing/Broken Teeth: No Heart: RRR Lungs: CTA Assessment and Plan Assessment Anesthesia Assessment: Anesthesia Plan Discussed Final Anesthetic Review History of Problems with Anesthesia: No NPO: Yes ASA Class: II Final Preanesthetic Review: Meds/Allgs Chart Reviewed, Consent Obtained/Reviewed and Anes Risks/Benef Reviewed Patient Risk: Low Procedure Risk: Intermediate Anesthetic Plan Anesthetic Plan: MAC: Disposition: Standard PACU
[2025-01-26 12:07] VITALS: BMI 30.6
[2025-01-26 12:17] VITALS: BP 133/88; PULSE 83; RESP 16; TEMP 36.5; O2SAT 96
[2025-01-26 14:13] VITALS: BP 124/80; PULSE 97; RESP 18; TEMP 36.1; O2SAT 98
--- NOTE | 2025-01-26 14:18 | PM.OP ---
Brief Operative Note Date of Service: 01/26/25 Pre-op diagnosis: GERD, Daily's Post-op diagnosis: other (Same, Hiatal hernia) Procedure: EGD with biopsies Surgeon: Ricardo Flor MD Anesthesia: MAC Was an Lead Refinery Supervisor used for this Procedure?: No Estimated blood loss (mL): 2.0 Pathology: other (A. Esophagus 30 to 32cm) Condition: stable Disposition: PACU
[2025-01-26 14:28] VITALS: BP 118/89; PULSE 76; RESP 18; O2SAT 96
[2025-01-26 14:43] VITALS: BP 131/92; PULSE 76; RESP 18; TEMP 36.3; O2SAT 97
--- NOTE | 2025-01-27 01:34 | OP_ITS ---
DATE OF SERVICE: 01/26/2025 SURGEON: Ricardo Flor MD INDICATIONS: The patient presents for evaluation of previous erosive esophagitis and Daily's esophagus. Full consent has been obtained from him for this, including risks of bleeding and perforation. PREOPERATIVE DIAGNOSIS: POSTOPERATIVE DIAGNOSIS: PROCEDURE PERFORMED: Esophagogastroduodenoscopy with biopsies. ESTIMATED BLOOD LOSS: COMPLICATIONS: ANESTHESIA: Monitored Anesthesia Care. ASSISTANTS: SPECIMENS: PREOPERATIVE DIAGNOSES: History of erosive esophagitis and Daily's esophagus. POSTOPERATIVE DIAGNOSES: History of erosive esophagitis and Daily esophagus, healed esophagitis, Daily's esophagus, hiatal hernia. DESCRIPTION OF PROCEDURE: The patient was placed in the left lateral decubitus position. The Olympus video gastroscope was passed in the posterior oropharynx and upper esophagus under direct vision. The scope was passed slowly into the distal esophagus. The gastroesophageal junction appeared at 32 cm. Extending from this to 30 cm was a segment of mucosa consistent with probable Daily's esophagus. There was no overlying esophagitis nor any lesions. The scope entered the stomach. There was a moderate-sized hiatal hernia with the diaphragmatic indentation seen at about 36 cm. The hiatal hernia mucosa appeared normal. Scope was advanced to the pylorus, and the duodenum was cannulated to the descending portion. The duodenum including the bulb appeared normal without mass or ulceration. The scope was withdrawn back in the stomach. The gastric antrum and body appeared normal with good peristalsis. The scope was retroflexed visualizing the proximal stomach carefully, which appeared normal, without any sign of mass or ulceration. Scope was straightened and withdrawn back to the esophagus. I obtained multiple biopsies between 30 and 32 cm in the esophagus. Proximal to 30 cm, the esophageal mucosa appeared normal. The scope was withdrawn from the patient. He tolerated the procedure well and was returned to the recovery area in stable condition. IMPRESSION: Hiatal hernia, gastroesophageal reflux, Daily's esophagus. PLAN: The results of the biopsies will be checked. Of note, a specimen has been sent for a Cypher study. If there is no dysplasia, I would recommend a repeat upper endoscopy in 3 years. He will continue his daily dose of omeprazole, which is currently at 40 mg. He has been instructed to try decrease to 20 mg daily to see if his symptoms allow that but if not he will stay on the 40 mg dose daily. He was advised not to use any aspirin and NSAIDs for 1 week. As long as things remain stable, I do not think he would need to consider hiatal hernia surgery, but certainly if the reflux worsens and proves refractory, then he may need to consider hiatal hernia surgery. MD RADHA Valdivia/BRISEIDA / [phone] MTDD
== END 2025-01-26 15:13 | disposition home or self-care (01) ==
PROVIDERS: PCP Internal Medicine Medical Oncology; Visit Provider Internal Medicine
PROC: 0DJ08ZZ Inspection of Upper Intestinal Tract, Via Natural or Artificial Opening Endoscopic (ICD-10-PCS; CPT 43235; principal; 2025-01-26 13:10)
DX: K22.70 Barrett's esophagus without dysplasia (principal); K21.9 Gastro-esophageal reflux disease without esophagitis; K44.9 Diaphragmatic hernia without obstruction or gangrene; Z79.899 Other long term (current) drug therapy; Z87.891 Personal history of nicotine dependence
CPT/HCPCS: 43239; 88305; 88342; J2003; J2704

== ENCOUNTER 2025-02-17 14:26 | Outpatient (AMB) | payer OTHER, SELFPAY ==
--- NOTE | 2025-02-17 14:52 | MHC.OFFVIS ---
Vital Signs 02/17/25 14:53 Height 5 ft 10 in Weight 213 lb 8 oz BMI 30.6 BP 108/68 Blood Pressure Location Rt brachial Position Sitting Pulse 92 Pulse Source Pulse Oximeter Pulse Oximetry (%) 94 Oxygen Delivery Method Room Air Intake Visit Reasons: Obstructive sleep apnea Allergies No Known Allergies Allergy (Verified 02/17/25 14:58) HPI HPI Obstructive sleep apnea: Details: Rosalio is a pleasant 49 year old male, former 60 pack year smoker, quit 4 years ago with underlying GERD, hiatal hernia and Daily's esophagus. He was referred by PCP for pulmonary evaluation for possible obstructive sleep apnea. He reports longstanding history of loud snoring, daytime fatigue, nonrestorative sleep and witnessed apneas. He denies prior sleep study and is interested in proceeding with a home sleep study. He also reports worsening dyspnea on exertion and intermittent dry cough/wheezing which became prevalent after smoking cessation 4 years ago. He denies prior h/o asthma/COPD. He reports mild seasonal alleriges, not triggering respiratory symptoms. He denies h/o recurrent respiratory infections. He denies occupational exposures. He denies pertinent family history. [facility]LY [facility] Medical History Hiatal hernia Daily esophagus Erosive esophagitis GERD (gastroesophageal reflux disease) Lumbar radiculitis Discogenic lumbar pain Vertebrogenic low back pain Surgical History History of esophagogastroduodenoscopy (EGD) H/O colonoscopy Social History Household Members: Spouse Are you a primary career resource technician to a significant other at home: No Do you presently have visiting nurse or other home services: No Patient Tobacco Use Status: Former Tobacco user Tobacco use type: Cigarette Review of Systems Const Denies chills, Reports daytime sleepiness, Reports difficulty sleeping, Denies excessive sweating, Denies fever(s), Denies headache(s), Denies night sweats and Reports stops breathing during sleep Eyes Denies dry eyes, Denies irritation and Denies itchy eyes ENT Reports Normal hearing present, Denies headache(s), Denies nasal congestion, Denies nasal discharge, Denies post nasal drip and Denies sore throat Card Denies chest pain, Denies chest pain at rest, Denies chest pain with activity, Denies claudication, Denies leg edema, Denies orthopnea and Denies paroxysmal nocturnal dyspnea Resp Denies chest congestion, Denies excessive phlegm production, Denies pain on inspiration, Denies pain with cough and Denies stridor Musc Denies myalgias Neuro Reports Normal hearing present and Denies headache(s) Endo Denies excessive sweating Vic/Lymph Denies lymphadenopathy Aller/Immun Denies itchy eyes and Denies seasonal rhinorrhea Physical Exam Vital Signs: Last Vital Signs Pulse 92 02/17/25 14:53 BP 108/68 02/17/25 14:53 Pulse Ox 94 02/17/25 14:53 Oxygen Delivery Method Room Air 02/17/25 14:53 BMI result Body Mass Index 30.6 Const General: cooperative, healthy appearing, comfortable, no acute distress, well developed and alert Nutritional Appearance: obese Orientation/consciousness: patient oriented x3 Limitations: no limitations HEENT Head: Yes normal to inspection, Yes normocephalic and Yes atraumatic Ears: hearing grossly normal bilaterally and external ears normal Eyes General: appearance normal, both eyes and all related structures Eyelids: Yes eyelids normal Sclerae: sclerae normal EOM: EOMs intact bilaterally Neck Neck: Yes normal visual inspection and Yes no lymphadenopathy Lymphatic: no lymphadenopathy noted Chest Chest palpation & inspection: normal inspection of the chest Resp Effort & Inspection: normal respiratory effort, able to speak in complete sentences, no audible wheezes, no cough, no stridor, not tachypneic, no tripod positioning and no use of accessory muscles Auscultation: clear to auscultation bilaterally Cardio Jugular venous distension: no JVD Rate: regular rate Rhythm: regular rhythm Skin Other: warm, dry General skin exam: no rashes or lesions noted Neuro General: patient oriented x3 Cranial nerves: Yes Normal hearing present Cognition (Neuro): normal cognition Gait exam (Neuro): Normal gait present Extrem General: Yes normal to inspection, Yes capillary refill normal, Yes no clubbing, cyanosis or edema and Yes no pedal edema Psych Appearance: grossly normal and well kempt Speech and movement: Normal speech and movement present and Clear speech present Affect: normal affect Attitude: cooperative Thought process: Normal thought process present Thought content: Normal thought content present Insight: Good insight present (Psych) Judgement: Good judgement present (Psych) Assessment & Plan Assessment & Plan (1) Witnessed episode of apnea: Code(s): R06.81 - Apnea, not elsewhere classified Category: Medical (2) Daytime somnolence: Code(s): R40.0 - Somnolence Category: Medical (3) Dyspnea on exertion: Code(s): R06.09 - Other forms of dyspnea Category: Medical (4) Personal history of tobacco use: Code(s): Z87.891 - Personal history of nicotine dependence Category: Social Hx Plan Rosalio reports symptoms suggestive of VALORIE, will send for home sleep study. He also reports symptoms suggestive of underlying RAD vs asthma/COPD. Will send for PFT to assess. Prior CXR unremarkable. All questions were answered and patient is in agreement of plan. Will follow up to review results or sooner if needed. Orders: Orders RT home sleep study Today R06.09 - Other forms of dyspnea, R40.0 - Somnolence PFT pulmonary function test Today R06.09 - Other forms of dyspnea, Z87.891 - Personal history of nicotine dependence Coding Level of Care Code New Pt Level 4 (07482) Diagnoses Witnessed episode of apnea R06.81 Daytime somnolence R40.0 Dyspnea on exertion R06.09 Personal history of tobacco use Z87.891
[2025-02-17 14:53] VITALS: BP 108/68; PULSE 92; O2SAT 94; BMI 30.6
--- OUTSIDE RECORDS SUMMARY | 2025-02-17 17:25 | XMS_ITS ---
Author Organization [facility] Address [address] [place] [address] Care Team Providers Care Gericare Aide Teacher Name Role Phone Ricardo Romo MD Primary Care Provider Unavailab Ricardo Mccormick [phone] REASON FOR VISIT parker's ,erosive esophagitis Encounters Encounter Location Date Provider Diagnosis [facility] [address] [place], [place] [phone] 01/26/2025 Ricardo Flor Hiatal hernia K44. 9 [...] Treatment No Information Progress Notes * ISAAC FISHER FRANSISCOSDOB:[birth year] (49 yo M)Acc No.[id number]:01/26/2025 EGD/MAC Patient:?ISAAC FISHER FRANSISCO [place] Provider:?Ricardo Flor MD :1975???Age:49 Y???Sex:Male Yobany e:01/26/2025 Address:[address] [place], [place] [id number] Pcp:Ricardo Romo MD Subjective: * Chief Complaints: * ???1. Parker's ,erosive eso phagitis. * Medical History:? Objective: * Vitals:? Assessment: * Assessment: 1.?Hiatal hernia - K44.9 (Pr imary)???2.?Gastro-esophageal reflux disease without esophagitis - K21.9???3.?Parker''s esophagus without dysplasia - K22.70??? Plan: * Treatment: * Procedure Codes:?85670 UPPER GI ENDOSCOPY, BIOPSY * * The named appointment provid er may or may not be the originator of this progress note, and it is not deemed complete until electronically signed by the appointment provider. Sign off status: Pending * Provider:?Ricardo lFor MD Date:? 025 Generated for Agus nelson/Naila/Ashutosh on:?02/17/2025 05:25 PM EDT
== END 2025-02-17 15:41 | disposition home or self-care (01) ==
LOC: HO.HPSW 14:26
PROVIDERS: PCP Internal Medicine Medical Oncology; Visit Provider Nurse Practitioner Family
DX: R06.81 Apnea, not elsewhere classified (principal); R40.0 Somnolence; R06.09 Other forms of dyspnea; Z87.891 Personal history of nicotine dependence
CPT/HCPCS: 99204

== ENCOUNTER 2025-05-06 12:49 | Outpatient (AMB) | payer OTHER, SELFPAY ==
--- OUTSIDE RECORDS SUMMARY | 2024-12-16 11:00 | XMS_ITS ---
Author Organization [facility] Address [address] [place] [address] Care Team Providers Care Band Attacher Name Role Phone Ricardo Romo MD Primary Care Provider Ricardo Mccauley [phone] REASON FOR VISIT erosive esophagitis Encounters Encounter Location Date Provider Diagnosis [facility] [address] [place] [address] 12/16/2024 Ricardo Flor Plan Of Treatment No Information Progress Notes * FRANSISCO ANDINOSDOB:[birth year] (49 yo M)Acc No.[id number]:12/16/2024 Progress Notes Patient: QAMAR LAZAR Provider: Eliseo Flor MD :1975 A ge:49 Y S ex:Male Date:12/16/2024 Address:[address] [place], [place] [id number] Pcp:Ricardo Romo MD Subjective: * Chief Complaints: * 1 . Erosive esophagitis. * Medical History: Objective: * Vitals: Assessment: Plan: * Treatment: * * The named appointment provid er may or may not be the originator of this progress note, and it is not deemed complete until electronically signed by the appointment provider. Sign off status: Pending * Provider: Eliseo Flor MD Date: 0 12/16/2024 Generated for Dimasi omar/Naila/eTransmitting on: 0 05/06/2025 01:16 PM EDT
--- OUTSIDE RECORDS SUMMARY | 2024-12-22 05:15 | XMS_ITS ---
Author Organization Ricardo Romo III, MD Address [address] [place] [address] Care Team Providers Care Critical Care Nurse Name Role Phone Ricardo Romo Primary Care Provider Allergies Allergen (clinical drug ingredient) Drug/Non Drug Allergy documented on EMR Reaction Allergy Type Onset Date Status No Known Drug Allergy Unknown Drug Allergy Active Reason For Referral Reason Consult and Treat Needs Sleep Study Diagnosis 1 Daytime somnolence ( R40.0) Diagnosis 2 Snoring (R06.83) Referral Organization Ricardo Romo III, MD Referring Provider First Name Ricardo Referring Provider Last Name Clarissa Referring Provider Speciality Internal M edicine Referred Provider [facility] er, Pulmonology Referred Provider Specialty Pulmonary [facility] General Notes Mely Mccabe 12/29/2024 03:31:26 PM > Referral and progress note faxed.Eliot Amber 01/01/2025 09:34:13 AM > Patient called [facility] he spoke with their office was told they are waiting for the specialist to review all documentations before the patient is scheduled.Eliot Amber 01/01/2025 03:21:47 PM > Ana from Pulmonary calling to confirm they are scheduling the sleep study for the patient. Referral Priority Routine Referral Appointment Date 02/17/2025 REASON FOR VISIT Daytime somnolence, Excessive nocturnal snoring, Obesity, History of depression, Benign prostatic hypertrophy, Lumbar radiculopathy Social History Tobacco Use: Social History Observation Description Date Details (start date - stop date) Former Smoker NA - NA Sex Assigned At : Social History Observation Description Sex Assigned At Male Tobacco Control (Standard) Question Answer Notes Tobacco use: Former smoker How long has it been since you last smoked? 1-5 years Additional Findings: Tobacco non-user Ex-cigaret te smoker Vital Signs Temperature 98.6 degrees Fahrenheit 12/23/19 25 Blood pressure systolic 131 mm Hg 12/23/19 25 Blood pressure diastolic 80 mm Hg 025 Heart Rate 80 /min 12/22/2024 Height 69.5 in 12/22/2024 Weight 213 lbs 12/22/2024 BMI 31 kg/m2 12/22/2024 Encounters Encounter Location Date Provider Diagnosis Ricardo Romo III, MD [address] [place] [address] [place], [place] [address] 12/22/2024 Ricardo Romo Benign prostatic hyperplasia, unspecified whether lower urinary tract symptoms present N40.0 ; Daytime somnolence R40.0 ; Obesity (BMI 30-39.9) E66.9 ; History of depression Z86.59 ; Lumbago with sciatica, left side M54.42 and Former smoker Z87.891 Assessments Encounter Date Diagnosis (ICD Code) Assessment Notes Treatment Notes Treatment Clinical Notes 12/22/2024 Benign prostatic hyperplasia, unspecified whether lower urinary tract symptoms present (ICD-10 - N40.0) 12/22/2024 Daytime somnolence (ICD-10 - R40.0) He has several risk factors for having sleep apnea which her obesity and daytime somnolence and a history of severe snoring. A sleep study has been ordered. 12/22/2024 Obesity (BMI 30-39.9) (ICD-10 - E66.9) His weight remains in the obese range. We have discussed his diet and nutrition. We have made a plan to lose weight at a rate of one half of a pound per week through a diet restricted in fact calories and sodium and concentrated sweets. I recommended regular exercise. 12/22/2024 History of depression (ICD-10 - Z86.59) He seems to be sad and depressed and withdrawn today. He says it is his ADHD coping for or and to be unproductive. He says he would be restored to normal with oral. I have referred him to the Center development or mental health treatment evaluation diagnosis and ultimately therapy if necessary. 12/22/2024 Lumbago with sciatica, left side (ICD-10 - M54.42) He will continue on current therapy without change. 12/22/2024 Former smoker (ICD-10 - Z87.891) He is motivated not to smoke. We formulated a plan to prevent relapse in times of stress and illness. Plan Of Treatment Pending Test Test Name Order Date PROFILE, FASTING (COMPREHENSIVE METABOLI C) 12/22/2024 PSA, TOTAL 12/22/2024 CBC w DIFF 12/22/2024 Lipid Panel 12/22/2024 Testosterone, Total 12/22/2024 Referrals Referral Date Details 12/22/2024 12/22/2024, Consult and Treat Needs Sleep Study, Pulmonology [facility] Next Appt Details Follow Up: 2 Weeks, Reason: OV Provider Name:Ricardo Romo, 07/06/2025 02:00:00 PM, [address] [place] [address], [id number], Progress Notes * Rosalio ANDINO IDOB: (49 yo M)Acc No.[id number]:12/22/2024 Progress Notes Patient: Rosalio LAZAR I Provider: Eliseo Romo MD :1975 A ge:49 Y S ex:Male Date:12/22/2024 Address:[address] [place], [place] [id number] Subjective: * Chief Complaints: * D aytime somnolenceExcessive nocturnal snoringObesityHistory of depressionBenign prostatic hypertrophyLumbar radiculopathy * HPI: C OVID-19 Screening: He comes to the office today at the request of his because of extreme and excessive nocturnal snoring. He has centripetal obesity. He has also been very sleepy during the day, taking naps. He feels sleepy during driving. He is concerned that he may have sleep apnea. I have agreed and ordered a sleep study to be done at home. Conference blood work was also requested. His testosterone level has been normal. A repeat followup visit was arranged. Questions H ave you had any new onset fever, chills, cough, congestion, sore throat, shortness of breath, muscle aches? N o * ROS: G eneral/Constitutional: pain o nly normal aches and pains. C hills d enies.?Fatigue a dmits. F ever d enies. E NT: Decreased hearing d enies. R espiratory: Cough d enies. C ardiovascular: Chest pain with exertion d enies. D yspnea on exertion?denies. S hortness of breath d enies. G astrointestinal: Constipation o ccasional. D ecreased appetite d enies. D iarrhea d enies. H eartburn d enies. N ausea d enies. R ectal bleeding d enies. V omiting d enies. H ematology: bruising d enies. p etechiae d enies. S wollen glands n one have been noted. G enitourinary: Frequent urination o nce a night. M usculoskeletal: Muscle aches d enies. P ainful joints d enies. S ciatica d enies. W eakness d enies. S kin: Itching d enies. R benito d enies. S kin lesion(s)?denies. N eurologic: Difficulty speaking d enies. D izziness d enies.?Headache d enies. L ow back pain d enies. P sychiatric: Depressed mood d enies. * Medical History: * Surgical History: T ooth implants 2021No history * Hospitalization/Major Diagno stic Procedure: N o history * Family History: F ather: alive, No information. M other: , aids,diabetes. Osteoarthritis, diagnosed with DM. M aternal aunt: , pancreatic cancer. 2 son(s) , 1 daughter(s) - healthy. . His children are healthy and well. Maternal Great grandmother of cancer. * Social History: T obacco Use: T obacco Control (Standard) T obacco use: F ormer smoker H ow long has it been since you last smoked??1-5 years A dditional Findings: Tobacco non-user E x-cigarette smoker Yaz johnson was born in [place]. He is working at a [employer]. He has been for 24 years to Ana and they have 3 healthy children. He is a former smoker. * Medications: N one * Allergies: N o Known Drug Allergyno[Allergies Verified] Objective: * Vitals: H t: 69.5, Wt: 213, BMI:31, BP: 131/80, HR: 80, Temp: 98.6, Wt-k.[id number]. * Examination: G eneral Examination: GENERAL APPEARANCE: p leasant, well nourished, well developed, in no acute distress, calm and relaxed, tired and sleepy appearing o bese, man. HEAD: a traumatic, normocephalic. EYES: e baudilio, perrla, anicteric, conjugate. EARS: n ormal. NOSE: s eptum intact. ORAL CAVITY: n ormal, unremarkable. NECK/THYROID: n o jugular venous distention, no carotid bruit, thyroid normal. LYMPH NODES: n o enlarged lymph nodes,spleen normal. SKIN: n o suspicious lesions, anicteric. HEART: n o clicks, gallops, murmurs, or rubs, regular rhythm, S1, S2 normal, no s3, or vascular bruits. LUNGS: c lear to auscultation . BREASTS: no masses palpable bilaterally. ABDOMEN: b owel sounds normal, no ascites, no organomegaly, no mass, centripital obesity. RECTAL EXAM: n ot examined. MUSCULOSKELETAL: e xtremities unremarkable, no clubbing, cyanosis or edema,, Mild decreased range of motion lumbar spine. PERIPHERAL PULSES: n ormal. NEUROLOGIC: a lert and oriented, cranial nerves 2-12 grossly intact, deep tendon reflexes 2+ symmetrical, motor strength normal upper and lower extremities, sensory exam intact. PSYCH: a lert, oriented. Assessment: * Assessment: 1. D aytime somnolence - R40.0 (Primary) N otes :He has several risk factors for having sleep apnea which her obesity and daytime somnolence and a history of severe snoring. A sleep study has been ordered. 2 . B enign prostatic hyperplasia, unspecified whether lower urinary tract symptoms present - N40.0 3 . O besity (BMI 30-39.9) - E66.9 N otes :His weight remains in the obese range. We have discussed his diet and nutrition. We have made a plan to lose weight at a rate of one half of a pound per week through a diet restricted in fact calories and sodium and concentrated sweets. I recommended regular exercise. 4 . H istory of depression - Z86.59 N otes :He seems to be sad and depressed and withdrawn today. He says it is his ADHD coping for or and to be unproductive. He says he would be restored to normal with oral. I have referred him to the Center development or mental health treatment evaluation diagnosis and ultimately therapy if necessary. 5 . L umbago with sciatica, left side - M54.42 N otes :He will continue on current therapy without change. 6 . F ormer smoker - Z87.891 N otes :He is motivated not to smoke. We formulated a plan to prevent relapse in times of stress and illness. Plan: * Treatment: 2. B enign prostatic hyperplasia, unspecified whether lower urinary tract symptoms present L AB: PROFILE, FASTING (COMPREHENSIVE METABOLIC) L AB: PSA, TOTAL L AB: CBC w DIFF L AB: Lipid Panel L AB: Testosterone, Total 3. O besity (BMI 30-39.9) L AB: PROFILE, FASTING (COMPREHENSIVE METABOLIC) L AB: PSA, TOTAL L AB: CBC w DIFF L AB: Lipid Panel L AB: Testosterone, Total 4. O thers Referral To:Pulmonology [facility] Pulmonary Diseases Reason:Consult and Treat Needs Sleep Study * Procedure Codes: * Preventive Medicine: Counseling: C are goal follow-up plan: Counseling for abnormal BMI given Y es Above Normal BMI Follow-up D ietary management education, guidance, and counseling, Dietary needs education, Exercise promotion: strength training, Exercise promotion: stretching, Feeding regime, Giving encouragement to exercise, Lifestyle education regarding diet, Nutrition / feeding management, Nutrition therapy, Prescribed activity/exercise education, Prescribed diet education, Prescribed dietary intake, Special diet education, Weight monitoring , Intervention, Order not done: Medical or Other reason not done S moking/Tobacco Use Patient counseled on the dangers of tobacco use and urged to quit. 0 12/22/2024 * Follow Up: 2 Weeks (Reason: OV) * Images: * Sign off status: Completed true * Provider: Eliseo Romo MD Date: 0 12/22/2024 Generated for Dimasi omar/Naila/eTransmitting on: 0 05/06/2025 01:16 PM EDT History and Physical Notes * HPI (History of Present Illness) Category Sub-Category Detail Notes COVID-19 Screening Questions Have you had any new onset fever, chills, cough, congestion, sore throat, shortness of breath, muscle aches?: No Examination Category Sub-Category Detail Notes General Examination GENERAL APPEARANCE: pleasant , well nourished, well developed, in no acute distress, calm and relaxed, tired and sleepy appearing obese, man HEAD: atraumatic, normocep halic EYES: eomi, perrla, anicte kaitlin, conjugate EARS: normal NOSE: septum intact NECK/THYROID: no jugular venous di stention, no carotid bruit, thyroid normal HEART: no clicks, gallops, murmurs, or rubs, regular rhythm, S1, S2 normal, no s3, or vascular bruits LUNGS: clear to auscultatio n ABDOMEN: bowel sounds normal, no ascites, no organomegaly, no mass, centripital obesity NEUROLOGIC: alert and oriented, cranial nerves 2-12 grossly intact, deep tendon reflexes 2+ symmetrical, motor strength normal upper and lower extremities, sensory exam intact SKIN: no suspicious lesion s, anicteric PERIPHERAL PULSES: normal BREASTS: no masses palpable b ilaterally MUSCULOSKELETAL: extremities unremark able, no clubbing, cyanosis or edema,, Mild decreased range of motion lumbar spine LYMPH NODES: no enlarged lymph no michel,spleen normal RECTAL EXAM: not examined PSYCH: alert, oriented ORAL CAVITY: normal, unremarkable Consultation Request Notes Referral Date Referring Provider Referred Provider Not es 12/22/2024 Clarissa [facility], Pulmonology Consult and Treat Needs Sleep Study
--- OUTSIDE RECORDS SUMMARY | 2025-01-06 13:30 | XMS_ITS ---
Author Organization Ricardo Romo III, MD Address [address] [place] [address] Care Team Providers Care Project Intern Name Role Phone Ricardo Romo Primary Care Provider Allergies Allergen (clinical drug ingredient) Drug/Non Drug Allergy documented on EMR Reaction Allergy Type Onset Date Status No Known Drug Allergy Unknown Drug Allergy Active REASON FOR VISIT Follow up Social History Tobacco Use: Social History Observation Description Date Details (start date - stop date) Former Smoker NA - NA Sex Assigned At : Social History Observation Description Sex Assigned At Male Tobacco Control (Standard) Question Answer Notes Tobacco use: Former smoker How long has it been since you last smoked? 1-5 years Additional Findings: Tobacco non-user Ex-cigaret te smoker Encounters Encounter Location Date Provider Diagnosis Ricardo Romo III, MD [address] [place] [address] [place] [address] 01/06/2025 Ricardo Romo Plan Of Treatment Next Appt Details Provider Name:Ricardo Romo, 07/06/2025 02:00:00 PM, [address] [place] [address] [place], [address], Progress Notes * Rosalio ANDINO IDOB: (49 yo M)Acc No.[id number]:01/06/2025 Progress Notes Patient: Rosalio LAZAR I Provider: Eliseo Romo MD :1975 A ge:49 Y S ex:Male Date:01/06/2025 [facility] [place] [id number] Subjective: * Chief Complaints: * 1 . Follow up. * HPI: C OVID-19 Screening: Questions H ave you had any new [...] of breath d enies. G astrointestinal: Constipation d enies. D ecreased appetite d enies.?Diarrhea d enies. H eartburn d enies. N ausea d enies. R ectal bleeding?denies. V omiting d enies. H ematology: bruising d enies. p etechiae d enies. S wollen glands n one have been noted. G enitourinary: Frequent urination d enies. M usculoskeletal: Muscle aches d enies. P ainful joints d enies. S ciatica d enies. W eakness d enies. S kin: Itching d enies. R benito d enies. S kin lesion(s)?denies. N eurologic: Difficulty speaking d enies. D izziness d enies.?Headache d enies. L ow back pain d enies. P sychiatric: Depressed mood d enies. * Medical History: A ttention deficit disorder, unspecified hyperactivity presence, Sleep walking disorder, Former smoker, History of depression, Tailor's bunion left foot, history of Raynaud's syndrome, Left wrist fracture, Low back pain radiated down the left side. * Surgical History: T ooth implants 2021, No history . * Hospitalization/Major Diagno stic Procedure: N o history . * Family History: F ather: alive, No information. M other: , aids,diabetes. Osteoarthritis, diagnosed with DM. M aternal aunt: , pancreatic cancer. 2 son(s) , 1 daughter(s) - healthy. . His children are healthy and well. Maternal Great grandmother of cancer. * Social History: T obacco Use: T obacco Control (Standard) T obacco use: F ormer smoker Yaz ow long has it been since you last smoked??1-5 years A dditional Findings: Tobacco non-user E x-cigarette smoker Yaz johnson was born in [place]. He is working at a [employer]. He has been for 24 years to Ana and they have 3 healthy children. He is a former smoker. * Medications: N one * Allergies: N o Known Drug Allergy. Objective: * Vitals: * Examination: G eneral Examination: GENERAL APPEARANCE: p leasant, well nourished, well developed, in no acute distress, calm and relaxed. HEAD: a traumatic, normocephalic. EYES: e baudilio, [...] sounds normal, no ascites, no organomegaly, no mass. RECTAL EXAM: n ot examined. MUSCULOSKELETAL: e xtremities unremarkable, no clubbing, cyanosis or edema. PERIPHERAL PULSES: n ormal. NEUROLOGIC: a lert and oriented, cranial nerves 2-12 grossly intact, deep tendon reflexes 2+ symmetrical, motor strength normal upper and lower extremities, sensory exam intact. PSYCH: a lert, oriented. Assessment: Plan: * Treatment: * Images: * The named appointment provid er may or may not be the originator of this progress note, and it is not deemed complete until electronically signed by the appointment provider. Sign off status: Pending * Provider: Eliseo Romo MD Date: 0 01/06/2025 Generated for Agus nelson/Naila/eTransmitting on: 0 05/06/2025 01:16 PM EDT History and Physical Notes * HPI (History of Present Illness) Category Sub-Category Detail Notes COVID-19 Screening Questions Have you had any new onset fever, chills, cough, congestion, sore throat, shortness of breath, muscle aches?: No Examination Category Sub-Category Detail Notes General Examination GENERAL APPEARANCE: pleasant , well nourished, well developed, in no acute distress, calm and relaxed HEAD: atraumatic, normocep halic EYES: eomi, perrla, anicte kaitlin, conjugate EARS: normal NOSE: septum intact NECK/THYROID: no jugular venous di stention, no carotid bruit, thyroid normal HEART: no clicks, gallops, murmurs, or rubs, regular rhythm, S1, S2 normal, no s3, or vascular bruits LUNGS: clear to auscultatio n ABDOMEN: bowel sounds normal, no ascites, no organomegaly, no mass NEUROLOGIC: alert and oriented, cranial nerves 2-12 grossly intact, deep tendon reflexes 2+ symmetrical, motor strength normal upper and lower extremities, sensory exam intact SKIN: no suspicious lesion s, anicteric PERIPHERAL PULSES: normal BREASTS: no masses palpable b ilaterally MUSCULOSKELETAL: extremities unremark able, no clubbing, cyanosis or edema LYMPH NODES: no enlarged lymph no michel,spleen normal RECTAL EXAM: not examined PSYCH: alert, oriented ORAL CAVITY: normal, unremarkable
--- OUTSIDE RECORDS SUMMARY | 2025-01-19 05:45 | XMS_ITS ---
Author Organization Ricardo Romo III, MD Address [address] [place] [address] Care Team Providers Care Tonnage Compilation Clerk Name Role Phone Ricardo Romo Primary Care Provider [phone] Allergies Allergen (clinical drug ingredient) Drug/Non Drug [...] Date Provider Diagnosis Ricardo Romo III, MD [address] [place] [address] [place] [address] 01/19/2025 Ricardo Romo Plan Of Treatment Next Appt Details Provider Name:Ricardo Romo, 07/06/2025 02:00:00 PM, [address] [place] [address] [place], [address], Progress Notes * RYAN ADEN Rosalio IDOB: (49 yo M)Acc No.[id number]:01/19/2025 Progress Notes Patient: Rosalio LAZAR I Provider: Eliseo Romo MD :1975 A ge:49 Y S ex:Male Date:01/19/2025 [facility] [id number] Subjective: * Chief Complaints: * 1 . [...] x-cigarette smoker Yaz johnson was born in [place]. He is working at a [employer]. He has been for 24 years to [...] * Provider: Eliseo Romo MD Date: 0 01/19/2025 Generated for Agus nelson/Naila/eTransmitting on: 0 05/06/2025 [...]
--- OUTSIDE RECORDS SUMMARY | 2025-01-26 09:10 | XMS_ITS ---
Author Organization [facility] Address [address] [place] [address] Care Team Providers Care Bulk Mail Clerk Name Role Phone Ricardo Romo MD Primary Care Provider Ricardo Mccauley [phone] REASON FOR VISIT parker's ,erosive esophagitis Encounters Encounter Location Date Provider Diagnosis [facility] Outpatient [address], [place] [phone] 01/26/2025 Ricardo Flor Hiatal hernia K44. 9 ; Gastro-esophageal reflux disease without esophagitis K21.9 and Parker''s esophagus without dysplasia K22.70 Assessments Encounter Date Diagnosis (ICD Code) Assessment Notes Treatment Notes Treatment Clinical Notes Section Notes 01/26/2025 Hiatal hernia (ICD-10 - K44.9) 01/26/2025 Gastro-esophagea l reflux disease without esophagitis (ICD-10 - K21.9) 01/26/2025 Parker''s esophagus without dysplasia (ICD-10 - K22.70) Plan Of Treatment No Information Progress Notes * ISAAC FISHERFRANSISCO HahnSDOB:[birth year] (49 yo M)Acc No.[id number]:01/26/2025 EGD/MAC Patient: Jordan SOARESAQAMAR Provider: Eliseo Flor MD :1975 A ge:49 Y S ex:Male Date:01/26/2025 Address:[address] [place], [place] [phone] Pcp:Ricardo Romo MD Subjective: * Chief Complaints: * 1 . Parker's ,erosive esophagitis. * Medical History: Objective: * Vitals: Assessment: * Assessment: 1. H iatal hernia - K44.9 (Primary) 2 . G nazanin-esophageal reflux disease without esophagitis - K21.9 3 . B arrett''s esophagus without dysplasia - K22.70? Plan: * Treatment: * Procedure Codes: 4 3239 UPPER GI ENDOSCOPY, BIOPSY * * The named appointment provid er may or may not be the originator of this progress note, and it is not deemed complete until electronically signed by the appointment provider. Sign off status: Pending * Provider: Eliseo Flor MD Date: 0 01/26/2025 Generated for Agus nelson/Naila/Mitchitting on: 0 05/06/2025 01:15 PM EDT
[2025-05-06 13:04] VITALS: BP 128/76; PULSE 98; O2SAT 94; BMI 30.3
--- NOTE | 2025-05-06 13:04 | A.OFFVIS_ITS ---
Vital Signs 05/06/25 13:04 Height 5 ft 10 in Weight 211 lb 2 oz BMI 30.3 BP 128/76 Blood Pressure Location Rt brachial Position Sitting Pulse 98 Pulse Source Pulse Oximeter Pulse Oximetry (%) 94 Oxygen Delivery Method Room Air Intake Visit Reasons: VALORIE/ PFT & SS FU Allergies No Known Allergies Allergy (Verified 05/06/25 13:06) HPI HPI VALORIE/ PFT & SS FU: Details: Rosalio is a pleasant 49 year old male, former 60 pack year smoker, quit 4 years ago with underlying GERD, hiatal hernia and Daily's esophagus. He was initially referred by PCP for pulmonary evaluation for possible obstructive sleep apnea. He reports longstanding history of loud snoring, daytime fatigue, nonrestorative sleep and witnessed apneas. He denies prior sleep study and was interested in proceeding with a home sleep study, which was ordered at the last visit however never scheduled.He continues to report worsening dyspnea on exertion and intermittent dry cough/wheezing which became prevalent after smoking cessation 4 years ago. He was also sent for PFT but he reportedly thought calls to schedule both tests were spam and never returned calls. COUNT INCLUDES THE [facility] Medical History Hiatal hernia Daily esophagus Erosive esophagitis GERD (gastroesophageal reflux disease) Lumbar radiculitis Discogenic lumbar pain Vertebrogenic low back pain Surgical History History of esophagogastroduodenoscopy (EGD) H/O colonoscopy Social History Household Members: Spouse Are you a primary family day care worker to a significant other at home: No Do you presently have visiting nurse or other home services: No Patient Tobacco Use Status: Former Tobacco user Tobacco use type: Cigarette Review of Systems Const Denies chills, Reports daytime sleepiness, Reports difficulty sleeping, Denies excessive sweating, Denies fever(s), Denies headache(s), Denies night sweats and Reports stops breathing during sleep Eyes Denies dry eyes and Denies irritation ENT Reports Normal hearing present, Denies headache(s), Denies nasal congestion, Denies nasal discharge, Denies post nasal drip and Denies sore throat Card Denies chest pain, Denies chest pain at rest, Denies chest pain with activity, Denies claudication, Denies leg edema, Denies orthopnea and Denies paroxysmal nocturnal dyspnea Resp Denies chest congestion, Denies excessive phlegm production, Denies pain on inspiration, Denies pain with cough and Denies stridor Musc Denies myalgias Neuro Reports Normal hearing present and Denies headache(s) Endo Denies excessive sweating Vic/Lymph Denies lymphadenopathy Aller/Immun Denies seasonal rhinorrhea Physical Exam Vital Signs: Last Vital Signs Pulse 98 05/06/25 13:04 BP 128/76 05/06/25 13:04 Pulse Ox 94 05/06/25 13:04 Oxygen Delivery Method Room Air 05/06/25 13:04 BMI result Body Mass Index 30.3 Const General: cooperative, healthy appearing, comfortable, no acute distress, well developed and alert Nutritional Appearance: obese Orientation/consciousness: patient oriented x3 Limitations: no limitations HEENT Head: Yes normal to inspection, Yes normocephalic and Yes atraumatic Ears: hearing grossly normal bilaterally and external ears normal Eyes General: appearance normal, both eyes and all related structures Eyelids: Yes eyelids normal Sclerae: sclerae normal EOM: EOMs intact bilaterally Neck Neck: Yes normal visual inspection and Yes no lymphadenopathy Lymphatic: no lymphadenopathy noted Chest Chest palpation & inspection: normal inspection of the chest Resp Effort & Inspection: normal respiratory effort, able to speak in complete sentences, no audible wheezes, no cough, no stridor, not tachypneic, no tripod positioning and no use of accessory muscles Auscultation: clear to auscultation bilaterally Cardio Jugular venous distension: no JVD Rate: regular rate Rhythm: regular rhythm Skin Other: warm, dry General skin exam: no rashes or lesions noted Neuro General: patient oriented x3 Cranial nerves: Yes Normal hearing present Cognition (Neuro): normal cognition Gait exam (Neuro): Normal gait present Extrem General: Yes normal to inspection, Yes capillary refill normal, Yes no clubbing, cyanosis or edema and Yes no pedal edema Psych Appearance: grossly normal and well kempt Speech and movement: Normal speech and movement present and Clear speech present Affect: normal affect Attitude: cooperative Thought process: Normal thought process present Thought content: Normal thought content present Insight: Good insight present (Psych) Judgement: Good judgement present (Psych) Assessment & Plan Assessment & Plan (1) Witnessed episode of apnea: Code(s): R06.81 - Apnea, not elsewhere classified Category: Medical (2) Daytime somnolence: Code(s): R40.0 - Somnolence Category: Medical (3) Dyspnea on exertion: Code(s): R06.09 - Other forms of dyspnea Category: Medical (4) Personal history of tobacco use: Code(s): Z87.891 - Personal history of nicotine dependence Category: Social Hx Plan Encouraged patient to reach out to to schedule both PFT and home sleep study. He continues to report symptoms suggestive of underlying RAD vs asthma/COPD. Discussed trialing albuterol however he would like to hold off at this time. He also reported environmental allergies but declines allergy testing. All questions were answered and patient is in agreement of plan. Will follow up to review results or sooner if needed. Coding Level of Care Code Est Pt Level 3 (50840) Diagnoses Witnessed episode of apnea R06.81 Daytime somnolence R40.0 Dyspnea on exertion R06.09 Personal history of tobacco use Z87.899
--- OUTSIDE RECORDS SUMMARY | 2025-05-06 13:16 | XMS_ITS | Patient Health Record ---
Author Organization Ricardo Romo III, MD Address [address] [place] [address] Care Team Providers Care Director Television Name Role Phone Ricardo Romo Primary Care [...] 0.2 - 1.3 BLD Negative Negative - Pathology Reviewed date:07/06/2024 06:38:49 AM Interpretation: Performing Lab:[facility], [address] [place] [address] Notes/Report: - -------- Name: Rosalio Hugo Age/Sex: 48/M : 1975 Unit#: [id number] Attend Dr: Ricardo Flor MD Re06/27/24 Status : [facility] Location: [facility] Disch: - -------- SPEC : [id number] RECD : 06/27/24 STATUS: PORTIA STEINBERG NUM: [id number] TIM: 06/27/24 [facility] DR: Ricardo Flor MD ENTERED: 06/27/241657 SP TYPE: Surgical OTHR DR: Ricardo Romo MD ORDERED: HE Stain/6, Gross Micro L4/2, IHC, H. pylori Addendum Addendum 1 Entered: 07/02/24 Immunostain for H. pylori on A is negative. Control stains appropriately. Addendum Signed (signature on file) Kayli Barber 07/02/241038 - -------- Diagnosis A. Gastric antrum, biopsy: Gastric antral [...] Esophagus 35-30 cm CONTINUED ON NEXT PAGE - -------- Name: Rosalio Hugo Age/Sex: 48/M : 1975 Unit#: [id number] Attend Dr: Ricardo Flor MD Re06/27/24 Status : [facility] Location: [facility] Disch: - -------- SPEC : [id number] RECD : 06/27/243 STATUS: PORTIA STEINBERG NUM: [id number] TIM: 06/27/24-1219 [facility] [address]: Ricardo Flor MD ENTERED: 06/27/24-6901 SP TYPE: Surgical OTHR DR: Ricardo Romo [...] on A1. Copies To: Ricardo Romo MD [address] [place] [address], [address] [place], [place] [id number] Ricardo Flor MD [facility] [address] [place] [address] - -------- Signed (signature on file) Kayli Sussex 06/30/24 1204 - -------- END OF REPORT Complete Blood Count Auto Di ff Reviewed date:07/29/2024 09:39:23 AM Interpretation: Performing Lab:[facility], [address] [place] [phone] Notes/Report: White Blood Count 5.3 4.8-10.8 X10*3/uL [...] NRBC Abs Auto 0.000 0.0-0.012 X10*3/uL Comprehensive [place]. Panel Fa Reviewed date:07/29/2024 09:39:23 AM Interpretation: Performing Lab:[facility], [address] [place] [phone] Notes/Report: Sodium 138 135-145 mmol/L Potassium 4.7 [...] Panel Reviewed date:07/29/2024 09:39:23 AM Interpretation: Performing Lab:[facility], [address] [place] [phone] Notes/Report: Triglycerides 646 <150 mg/dL Desirable Triglyceride: [...] Antigen Reviewed date:07/30/2024 09:10:09 AM Interpretation: Performing Lab:[facility], [address] [place] [phone] Notes/Report: Prostate Specific Antigen 1.51 <0.05-4.0 ng/mL PSA methodology: [employer] Al[employer] i Chemiluminescent Microparticle Immunoassay (CMIA) Free T4 (Free Thyroxine) Reviewed date:07/29/2024 09:39:23 AM Interpretation: Performing Lab:[address] [address] Notes/Report: Free T4 (Free Thyroxine) 0.86 0.71-1.85 ng/dL Thyroid Stimulating Hormone Reviewed date:07/29/2024 09:39:23 AM Interpretation: Performing Lab:[address] [address] Notes/Report: Thyroid Stimulating Hormone 3.02 0.32-4.0 uIU/mL Note: A sustained TSH level above 2.5 uIU/mL may warrant further investigation. TSH 3rd Generation ([employer]) Alpha Fetoprotein Reviewed date:08/05/2024 08:44:17 AM Interpretation: Performing Lab:[address] [address] Notes/Report: Alpha Fetoprotein 3.5 <6.1 ng/mL This test was performed using the [employer] [place] chemiluminescent method. Values obtained from different assay methods cannot be used interchangeably. AFP levels, regardless of value, should not be interpreted as absolute evidence of the presence or absence of disease. THIS TEST WAS PERFORMED AT: [facility] [address] [place] [phone] MIRELA LANG MD Testosterone, Total Reviewed date:08/05/2024 08:44:17 AM Interpretation: Performing Lab:[facility], [address] [place] [phone] Notes/Report: Testosterone, Total 303 800-1207 ng/dL For additional information, please refer to http://education.La Miu/faq/ TotalTestosteroneLCMS IIREQ377 (This link is being provided for informational/ educational purposes only.) This test was developed and its analytical performance characteristics have been determined by [employer] [place], [place]. It has not been cleared or approved by the U.S. Food and Drug Administration. This assay has been validated pursuant to the CLIA regulations and is used for clinical purposes. THIS TEST WAS PERFORMED AT: [facility] [address] JENA ESCUDERO MD,PHD Pathology Reviewed date:04/11/2025 08:45:38 PM Interpretation: Performing Lab:[facility], [address] [place] [phone] Notes/Report: - -------- Name: Rosalio Hugo Age/Sex: 49/M : 1975 Unit#: [id number] Attend Dr: Ricardo Flor MD Re01/26/25 Status : [facility] Location: [facility] Disch: - -------- SPEC : [id number] RECD : 01/26/259204 STATUS: PORTIA STEINBERG NUM: [id number] TIM: 01/26/25-[address] [facility] [address]: Ricardo Flor MD ENTERED: 01/26/258762 SP TYPE: Surgical OTHR DR: Ricardo Romo MD ORDERED: Gross Micro L4, IHC, H. pylori, Eso bx BA w/exc COMMENTS: 8 unstaine d slides (A) sent to [facility] for [facility] on 01/29/25. Addendum Addendum 1 Entered: 02/16/25 [facility]: Risk class Low; risk score 1.8 See report in its entirety in the EMR - Reports/Pathology section as a scanned report (camera icon). If appropriate, a copy has also been sent to the ordering provider's office. Addendum Signed (signature on file) Scottie Hyman MD 02/16/251700 - -------- Diagnosis Esophagus, 30-32 cm, biopsy: - Daily esophagus with background moderate chronic inactive inflammation. - No dysplasia seen. - Negative for H.pylori. - Active esophagitis (maximum eosinophil count 4 per high powered field). Comment: Tissue Cypher results will be addended. Clinical History Pre-Op Dx: Daily's esophagus Post-Op Dx: Hiatal hernia and H/O Daily's Microscopic Description Microscopic sections examined. No Helicobacter organisms are seen, supported by H. pylori immunostain. Material Received Esophagus bx's 30-32 , h/o Daily's CONTINUED ON NEXT PAGE - -------- Name: Rosalio Hugo Age/Sex: 49/M : 1975 Unit#: [id number] Attend Dr: Ricardo Flor MD Re01/26/25 Status : [facility] Location: [facility] Disch: - -------- SPEC : [id number] RECD : 01/26/25-0875 STATUS: PORTIA STEINBERG NUM: [id number] TIM: 01/26/25-14[address] [facility] [address]: Ricardo Flor MD ENTERED: 01/26/25-8701 SP TYPE: Surgical OTHR DR: Ricardo Romo MD ORDERED: Gross Micro L4, IHC, H. pylori, Eso bx BA w/exc COMMENTS: 8 unstaine d slides (A) sent to [facility] for [facility]per on 01/29/25. Gross Description Received in formalin labeled esophagus bx's 30-32? are 9 high-white and pink-red irregular tissue fragments ranging from 0.15-0.3 cm, submitted in toto in a cassette labeled A. CEDS Special studies ordered and performed: Immunostain for H. pylori Copies To: Ricardo Romo MD [address] [place] [address], [address] [place], [place] [id number] Ricardo Flor MD [facility] [address] [place], [place] [id number] - -------- Signed (signature on file) Scottie Hyman MD 01/28/25 1137 - -------- END OF REPORT Reason For Referral Reason Consult and Treat Depression Questioning ADHD Diagnosis 1 History of depressio n (Z86.59) Referral Organization Ricardo Romo III, MD Referring Provider First Name Ricardo Referring Provider Last Name Clarissa Referring Provider Speciality Internal M edicine Referred Provider [facility] adult mental, he alth Referred Provider Specialty Psychiatry General Notes Mely Mccabe 07/04/2024 01:47:23 PM > Patent was advised to contact [facility] and schedule an appointment or use their walk in clinic that is located in [place], [place]. Patient was given there contact number Referral Priority Routine Reason Consult and Treat Needs Sleep Study Diagnosis 1 Daytime somnolence ( R40.0) Diagnosis 2 Snoring (R06.83) Referral Organization Ricardo Romo III, MD Referring Provider First Name Ricardo Referring Provider Last Khang Romo Referring Provider Speciality Internal M edicine Referred Provider [facility] er, Pulmonology Referred Provider Specialty Pulmonary Kenna garcia General Notes Mely Mccabe 12/29/2024 03:31:26 PM > Referral and progress note faxed., Mely Mccabe 01/01/2025 09:34:13 AM > Patient called [facility] Pulmonary he spoke with their office was told they are waiting for the specialist to review all documentations before the patient is scheduled., Mely Mccabe 01/01/2025 03:21:47 PM > Ana from Pulmonary calling to confirm they are scheduling the sleep study for the patient. Referral Priority Routine Referral Appointment Date 02/17/2025 Social History Tobacco Use: Social History Observation [...] Problem Status W/U Status Risk Notes Problem 4483285 Former smoker (Z87.891) Active confirmed He is motivated not to smoke. We formulated a plan to prevent relapse in times of stress and illness. Problem 674028176 Lumbar radiculopathy (M54.16) Active confirmed He continues to be under the management of pain management. He is able to conduct all of the activities of daily living. His pain has flared recently and appropriate treatment was instituted. He was referred back to pain management. Problem 946953953 Lumbago with sciatica, left side (M54.42) Active confirmed He will continue on current therapy without change. Problem 447759382 Obesity (BMI 30-39.9) (E66.9) Active confirmed His weight remains in the obese range. We have discussed his diet and nutrition. We have made a plan to lose weight at a rate of one half of a pound per week through a diet restricted in fact calories and sodium and concentrated sweets. I recommended regular exercise. Problem Attention deficit hyperactivity disorder (821240201) ADHD (attention deficit hyperactivity disorder) (F90.9) Active confirmed He says his work and personal life or suffering. He was referred to mental health for evaluation diagnosis and treatment. He is still waiting for the appointment. I will doing to prescribe the medication if I can find records where the diagnosis was made. Problem 550926559 History of depression (Z86.59) Active confirmed He seems to be sad and depressed and withdrawn today. He says it is his ADHD coping for or and to be unproductive. He says he would be restored to normal with oral. I have referred him to the Center development or mental health treatment evaluation diagnosis and ultimately therapy if necessary. Problem Daytime somnolence (790412766448) Daytime somnolence (R40.0) Active confirmed He has several risk factors for having sleep apnea which her obesity and daytime somnolence and a history of severe snoring. A sleep study has been ordered. Problem Benign prostatic hypertrophy without outflow obstruction (816572527) Benign prostatic hyperplasia, unspecified whether lower urinary tract symptoms present (N40.0) Active confirmed He has been rising from sleep once a night and sometimes twice to urinate. We discussed lifestyle modifications that he could make to reduce nocturia. Problem 77973066 Sleepwalking (F51.3) Active confirmed This has not been a problem for him in recent months. Problem 0402468838550638 Tailors bunion of left foot (M21.622) Active confirmed He has seen a sand drier for this remains under the sand drier care. Vital Signs Heart Rate 80 /min 12/22/2024 Temperature 98.6 degrees Fahrenheit 12/22/2024 Blood pressure diastolic 80 mm Hg 12/22/2024 Height 69.5 in 12/22/2024 Blood pressure systolic 131 mm Hg 12/22/2024 Weight 213 lbs 12/22/2024 BMI 31 kg/m2 12/22/2024 Encounters Encounter Location Date Provider Diagnosis Ricardo Romo III, MD [address] [place] [address] [place] [address] 07/04/2024 Ricardo Romo Benign prostatic hyperplasia, unspecified whether lower urinary tract symptoms present N40.0 ; History of depression Z86.59 ; Overweight E66.3 ; Hypothyroidism, unspecified E03.9 ; Tailors bunion of left foot M21.622 ; Lumbago with sciatica, left side M54.42 ; Former smoker Z87.891 and ADHD (attention deficit hyperactivity disorder) F90.9 Ricardo Romo III, MD [address] [place] [address] [place] [address] 07/29/2024 Ricardo Romo Benign prostatic hyperplasia, unspecified whether lower urinary tract symptoms present N40.0 ; Lumbar radiculopathy M54.16 ; History of depression Z86.59 ; Former smoker Z87.891 and ADHD (attention deficit hyperactivity disorder) F90.9 Ricardo Romo III, MD [address] [place] [address] [place] [address] 12/22/2024 Ricardo Romo Benign prostatic hyperplasia, unspecified whether lower urinary tract symptoms present N40.0 ; Daytime somnolence R40.0 ; Obesity (BMI 30-39.9) E66.9 ; History of depression Z86.59 ; Lumbago with sciatica, left side M54.42 and Former smoker Z87.891 Ricardo Romo III, MD [address] [place] [address] [place] [address] 05/13/2024 Ricardo Romo III, MD [address] [place] [address] [place] [address] 06/03/2024 Ricardo Romo III, MD [address] [place] [address] [place] [address] 07/11/2024 Ricardo Romo III, MD [address] [place] [address] [place] [address] 07/29/2024 Ricardo Romo III, MD [address] [place] [address] [place] [address] 11/03/2024 Ricardo Romo III, MD [address] [place] [address] [place] [address] 11/03/2024 Ricardo Romo Assessments Encounter Date Diagnosis (ICD Code) Assessment Notes Treat ment Notes Treatment Clinical Notes 07/04/2024 History of depression (ICD-10 - Z86.59) [...] urinary tract symptoms present (ICD-10 - N40.0) 07/04/2024 Overweight (ICD-10 - E66.3) He has [...] and concentrated sweets. I recommended regular exercise. 07/04/2024 Hypothyroidism, unspecified (ICD-10 - E03.9) Comprehensive [...] diagnosis and ultimately therapy if necessary. 07/04/2024 Tailors bunion of left foot (ICD-10 - M21.622) He has seen a sand drier for this remains under the sand drier care. 07/29/2024 ADHD (attention deficit hyperactivity disorder) [...] will continue on current therapy without change. 07/04/2024 Lumbago with sciatica, left side (ICD-10 - M54.42) He will continue on current therapy without change. 12/22/2024 Former smoker (ICD-10 - Z87.891) He is motivated not to smoke. We formulated a plan to prevent relapse in times of stress and illness. 07/04/2024 Former smoker (ICD-10 - Z87.891) He [...] RANDOM (COMPREHENSIVE METABOLIC ) 04/02/2024 LIPID PANEL 04/11/2023 LIPID PANEL 10/11/2021 LIPID PANEL 07/15/2021 LIPID PANEL 07/28/2020 FREE T4 (FT4) 10/11/2021 FREE T4 (FT4) 07/04/2024 TSH (THYROID STIMULATING HORMONE) 2021 TSH (THYROID STIMULATING HORMONE) 2023 PSA, TOTAL 04/11/2023 PSA, TOTAL 07/15/2021 PSA, TOTAL 12/22/2024 PSA, TOTAL 07/28/2020 PSA, TOTAL 07/04/2024 CBC w DIFF 07/15/2021 CBC w DIFF 12/22/2024 CBC w DIFF 07/28/2020 CBC w DIFF 04/11/2023 CBC w DIFF 06/07/2022 CBC w DIFF 10/11/2021 SED RATE (ESR) 07/28/2020 ALPHA-FETOPROTEIN,TUMOR MARKER 4 TESTOSTERONE, FREE AND TOTAL 04/11/2023 TESTOSTERONE, TOTAL 10/11/2021 CBC WITH AUTO DIFF 04/02/2024 CBC WITH AUTO DIFF 07/04/2024 Lipid Panel 12/22/2024 Lipid Panel 07/04/2024 Lipid Panel 06/07/2022 Testosterone, Total 04/02/2024 Testosterone, Total 12/22/2024 Next Appt Details Provider Name:Ricardo Romo, 07/06/2025 02:00:00 PM, [address] [place] [address] DR, [place] [address], [place], [address], Insurance Providers Payer Name Payer Address Payer Phone Subscriber Number Group Number Insured Name Patient Relationship to Insured Coverage Start Date Coverage End Date [facility] [address] [facility] [address] [place] [address] [id number] Rosalio Hugo Self - patient is the [...]
--- OUTSIDE RECORDS SUMMARY | 2025-05-06 13:16 | XMS_ITS | Patient Health Record ---
Author Organization [facility] Address [address] [place] [address] Care Team Providers Care Report Manager Name Role Phone Ricardo Romo MD Primary Care Provider Ricardo Mccauley Unavailable [phone] Results Component Value Reference Range Notes Pathology Reviewed date:12/09/2024 10:56:43 AM Interpretation: Performing Lab:[facility], [address] [place] [address] Notes/Report: Pathology (Not yet reviewed by provider) Interpretation: Performing Lab:[facility], [address] [place] [address] Notes/Report: Reason For Referral No Information Medications Medication [...] Status Risk Notes Problem Colon cancer screening (609993909) Colon cancer screening (Z12.11) Active confirmed Problem Gastro-esophageal reflux disease without esophagitis (840064043) Gastro-esophag eal reflux disease without esophagitis (K21.9) Active confirmed Problem Duodenitis (97232770) Duodenitis (K29.80) Active confirmed Problem Epigastric pain (66115727) Abdominal pain, epigastric (R10.13) Active confirmed Problem Erosive esophagitis (76158235) Erosive esophagitis (K22.10) Active confirmed Problem Daily esophagus (738299503) 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) Active confirmed Problem Gastroesophageal reflux disease (disorder) (288820858) Chronic GERD (K21.9) Active confirmed Vital Signs Blood pressure diastolic 11 mm Hg 12/09/2024 Height 70 in 12/09/2024 Blood pressure systolic 111 mm Hg 12/09/2024 Weight 217 lbs 12/09/2024 BMI 31.13 kg/m2 12/09/2024 Procedures Procedure Date Ordered Date Performed Result Body Sit e UPPER GI ENDOSCOPY 12/09/2024 N/A Encounters Encounter Location Date Provider Diagnosis [facility] Outpatient [address] [place] [id number] 06/27/2024 Ricardo Flor Colon cancer screening Z12.11 ; Other hemorrhoids K64.8 ; Gastro-esophageal reflux disease without esophagitis K21.9 ; Hiatal hernia K44.9 ; Duodenitis K29.80 and Erosive esophagitis K22.10 [facility] Outpatient [address] [place] [id number] 01/26/2025 Ricardo Flor Hiatal hernia K44.9 ; Gastro-esophageal reflux disease without esophagitis K21.9 and Daily''s esophagus without dysplasia K22.70 [facility] [address] [place] [address] 12/09/2024 Ricardo Flor Erosive esophagitis K22.10 ; Daily esophagus K22.70 ; Hiatal hernia K44.9 and Colon cancer screening Z12.11 [facility] [address] [place] [address] 06/27/2024 Ricardo Flor Chronic GERD K21.9 [facility] [address] [place] [address] 11/03/2024 Ricardo Flor Assessments Encounter Date Diagnosis (ICD Code) Assessment Notes Treatment Notes Treatment Clinical Notes Section Notes 06/27/2024 Colon cancer screening (ICD-10 - Z12.11) 06/27/2024 Other hemorrhoids (ICD-10 - K64.8) 01/26/2025 Gastro-esophag eal reflux disease without esophagitis (ICD-10 - K21.9) 01/26/2025 Hiatal hernia (ICD-10 - K44.9) 12/09/2024 Erosive esophagitis (ICD-10 - K22.10) Overall, [...] disease without esophagitis (ICD-10 - K21.9) 01/26/2025 Daily''s esophagus without dysplasia (ICD-10 - K22.70) 12/09/2024 Hiatal hernia (ICD-10 - K44.9) Overall, [...] Name Order Date UPPER GI ENDOSCOPY 12/09/2024 Pathology 01/26/2025 US abdomen complete 03/06/2024 Future Test Test Name Order Date UPPER GI ENDOSCOPY 03/06/2024 COLONOSCOPY 03/06/2024 Insurance Providers Payer Name Payer Address Payer Phone Subscriber Number Group Number Insured Name Patient Relationship to Insured Coverage Start Date Coverage End Date [facility] [address] [place] [address] [id number] ISAAC FISHER QAMAR Self - patient is the insured Medical (General) History Medical History History ICD Code Denies [place],DM,CVA,Lung disease,renal dise ase GERD--Upper endoscopy in Jul revealed significant erosive esophagitis with underlying Daily's esophagus. Biopsies were negative for dysplasia. A small hiatal hernia was noted as well. He was advised to continue 40 mg omeprazole daily at that time. Negative screening colonoscopy in er 2023 Surgical History Surgery Date(Month/Year)
--- OUTSIDE RECORDS SUMMARY | 2025-05-06 13:16 | XMS_ITS | Clinical Summary ---
Author Organization [facility] Address [address] [place] [address] Care Team Providers Care Circus Performer Name Role Phone Elia Badillo MD Primary Care Provider [phone] Medications Medication Sig Dispensed Refills Start Date End Date Status omeprazole (PRILOSEC OTC) 20 MG tablet Take 20 mg by mouth daily. 0 Active ketoconazole (NIZORAL) 2 % cream Apply sparingly 1 - 2 times a day to affected areas as needed 30 g 1 12/08/2019 Active hydrocortisone 2.5 % cream Apply sparingly to affected areas 1 - 2 times a day as needed 30 g 1 12/08/2019 Active Social History Tobacco Use Types Packs/Day Years Used Date Smoking Tobacco: Never Assessed Sex Assigned at Date Recorded Not on file Last Filed Vital Signs Vital Sign Reading Time Taken Comments Blood Pressure 110/70 12/08/2019 2:06 PM EDT Pulse 72 12/08/2019 2:06 PM EDT Temperature - - Respiratory Rate - - Oxygen Saturation - - Inhaled Oxygen Concentration - - Weight 89.4 kg (197 lb) 12/08/2019 2:06 PM EDT Height - - Body Mass Index - - Plan of Treatment Health Maintenance Due Date Last Done Comments Covid-19 Vaccine (#1) 01/08/1976 TOBACCO CHECK/ADVISE 1993 DTAP/TDAP/TD (1 - Tdap) 1994 CHOLESTEROL SCREENING 1995 BASELINE HEALTH EXAM 40-64 2015 BMI CHECK/ADVISE 09/10/2024 INFLUENZA (#1) 2025 PNEUMOCOCCAL VACCINE FOR HIGH RISK PATIENTS (#1) 10/31 /2040 Care Teams Circus Performer Relationship Specialty Start Date End Date Elia Badillo MD [address] [place] [id number] PCP - General Internal Medicine 12/08/19
--- OUTSIDE RECORDS SUMMARY | 2025-05-06 13:16 | XMS_ITS | Patient Health Record ---
Author Organization [facility] Address [address] [facility] [place] [address] Care Team Providers Care Neuropsychology Director Name Role Phone Altagracia SANTANA, Ruy Primary Care Provider Unavail able Savanah Melendez Unavailable [phone] Reason For Referral No Information Medications Medication SIG (Take, Route, Fr equency, Duration) Notes Start Date End Date Status Adderall 20 MG Orally Activ e Naproxen Active Social History Tobacco Use: Social History Observation Description Date Details (start date - stop date) Current Smoker NA - NA Tobacco Use/Smoking Question Answer Notes Are you a: current smoker When did you start smoking? 13 years old How often do you smoke cigarettes? every day How many cigarettes a day do you smoke? 5 or les s How soon after you wake up d o you smoke your first cigarette? after 60 minutes Are you interested in quitting? Not ready to nieves t Additional Findings: Tobacco User Light cigarett e smoker ((1-9 cigs/day) Alcohol Screen Question Answer Notes Did you have a drink containing alcohol in the p ast year? Yes Points 0 Interpretation Negative Tobacco use other than smoking: Question Answer Notes Are you an other tobacco user? No Plan Of Treatment Pending Test Test Name Order Date X ray : Foot, left 3V 11/09/2017 [id number], [id number]/INJECT, JOINT/BURSA 0 11/14/2017 Insurance Providers Payer Name Payer Address Payer Phone Subscriber Number Group Number Insured Name Patient Relationship to Insured Coverage Start Date Coverage End Date [facility] [address] [facility] [place] [id number] Ana Tracy Spouse - patient is the spouse of the insured Medical (General) History Medical History History ICD Code Back,Hip,and Knee pain Broken bones Raynauds syndrome Sciatica
== END 2025-05-06 13:22 | disposition home or self-care (01) ==
LOC: HO.HPSW 12:50
PROVIDERS: PCP Internal Medicine Medical Oncology; Visit Provider Nurse Practitioner Family
DX: R06.81 Apnea, not elsewhere classified (principal); R40.0 Somnolence; R06.09 Other forms of dyspnea; Z87.891 Personal history of nicotine dependence
CPT/HCPCS: 99213